=== PATIENT | male | born 1930 | race Caucasian/White ===

== ENCOUNTER → 2016-11-09 | Outpatient (CLI) | payer BC ==
[~2016-11-09] MED LIST: BCTRO EXT; CETI10TA10 PO; FLM4 PO; GFNSR600 PO; IPRASOL4 INH; LISI10TA PO; METO1TAB54 PO; MULT-845 PO; NYSS5 PO; OXGN; PANT40TA PO; PRED10TA PO; PRS5 PO; SYMIN160 INH
--- NOTE | 2016-11-09 14:21 | DIAGNOSTIC IMAGING REPORT ---
CHEST 2 VIEWS ROUTINE CLINICAL HISTORY: COPD with acute exacerbation COMPARISON STUDY: 05/20 16 FINDINGS: The cardiac and mediastinal contours remain stable. There is radiographic evidence of emphysema. There is a persistent area of architectural distortion within the left infrahilar region. There are subtle right upper lung zone airspace opacities, possibly representing a minimal scattered other interstitial opacities are felt to be chronic. There is no significant pleural fluid. There is no failure. Pneumonitis.[ IMPRESSION: 1. Emphysema with chronic interstitial changes 2. Subtle right upper lung zone airspace opacities, possibly inflammatory. Radiographic follow-up is recommended 3. Stable area of distortion in the left infrahilar region. An underlying nodule cannot be excluded Electronically signed by: Eron Bose M.D. 11/09/2016 2:19 PM Dictated Date/Time: 11/09/2016 2:17 PM
== END | disposition home or self-care (01) ==
LOC: C.RADBC 13:39
PROVIDERS: ATTEND Family Medicine
DX: J44.1 Chronic obstructive pulmonary disease with (acute) exacerbation (principal)

== ENCOUNTER → 2016-12-10 | Outpatient (CLI) | payer BC ==
--- NOTE | 2016-12-10 09:18 | DIAGNOSTIC IMAGING REPORT ---
CHEST 2 VIEWS ROUTINE HISTORY: Follow-up PNEUMONIA COMPARISON: Chest 11/09/2016. FINDINGS: There are 2 adjacent peripheral densities within the right upper lobe. The larger peripheral density has improved. The smaller peripheral density remains unchanged. Emphysema. The lungs are hyperexpanded. Stable scarlike densities within the left midlung zone. Small regular density abutting the left heart border persists. No pneumothorax. No pleural effusions. The heart is normal in size. IMPRESSION: 1. There are 2 adjacent peripheral densities within the right upper lobe. One of these has improved. 2. Additional right upper lobe density and irregular density abutting the left heart border persists. These may represent scarring. However, follow-up chest CT is recommended for further evaluation given the lack of interval change. 3. Emphysema. Electronically signed by: Akhil Ansari M.D. 12/10/2016 9:17 AM Dictated Date/Time: 12/10/2016 9:15 AM
== END | disposition home or self-care (01) ==
LOC: C.RADBC 08:57
PROVIDERS: ATTEND Family Medicine
DX: J18.9 Pneumonia, unspecified organism (principal)

== ENCOUNTER → 2016-12-15 | Outpatient (CLI) | payer BC ==
[~2016-12-15] MED LIST changes: +OPTIRAY 320 IV PRN
--- NOTE | 2016-12-15 11:20 | DIAGNOSTIC IMAGING REPORT ---
CT OF THE CHEST WITH IV CONTRAST CLINICAL HISTORY: Chronic respiratory failure. COPD. Abnormal chest x-ray with possible pulmonary mass. COMPARISON STUDY: Chest x-ray dated 12/10/2016 TECHNIQUE: Following the IV administration of 92 mL of Optiray-320, CT of the thorax was performed from the thoracic inlet to the lung bases. Images are reviewed in the axial, sagittal, and coronal planes. IV contrast was administered without complication. CT DOSE: 468.88 mGy.cm FINDINGS: There is bilateral gynecomastia. Thyroid: Imaged portions of the thyroid gland are normal in appearance. Thoracic aorta: The thoracic aorta is normal in course and caliber, noting standard 3-vessel arch anatomy. No aneurysm or dissection is seen. Pulmonary vasculature: The pulmonary trunk is normal in caliber. There are no central filling defects identified to suggest pulmonary embolus. Note that this examination was not protocoled for the evaluation of pulmonary emboli. HEART: The heart is normal in size and configuration, without pericardial effusion. Lungs and pleural spaces: No pleural effusions are visualized. There is severe pulmonary emphysema. There is scattered areas of presumed interstitial scarring. There are lingular atelectatic changes. There is no lobar consolidation. There is a 5 mm right upper lobe pulmonary nodule as visualized in image #[id number]. Mediastinum: Mediastinal lymph nodes are the upper limits of normal in size area of Rosamaria: Clear. Axilla: Clear. Upper abdomen: The liver has a macronodular serosal surface. Underlying cirrhosis is suspected. Skeletal structures: There are no lytic or blastic osseous lesions. IMPRESSION: 1. Emphysema with linear atelectasis and scattered areas of interstitial scarring 2. 5 mm right upper lobe pulmonary nodule 3. No evidence of lobar consolidation 4. No evidence of pathologic adenopathy 5. Suspected hepatic cirrhosis Electronically signed by: Eron Bose M.D. 12/15/2016 11:19 AM Dictated Date/Time: 12/15/2016 11:11 AM
== END | disposition home or self-care (01) ==
LOC: C.CTS 10:47
PROVIDERS: ATTEND Family Medicine
DX: J44.1 Chronic obstructive pulmonary disease with (acute) exacerbation (principal); J96.10 Chronic respiratory failure, unspecified whether with hypoxia or hypercapnia; R91.1 Solitary pulmonary nodule; J98.11 Atelectasis

== ENCOUNTER → 2017-04-20 | Outpatient (CLI) | payer BC ==
[~2017-04-20] MED LIST changes: -OPTIRAY 320 IV PRN
[2017-04-20 13:51] LABS: HEMATOCRIT 40.6 % (42-52); MEAN CORPUSCULAR HEMOGLOBIN 31.2 pg (25-34); MEAN CORPUSCULAR HGB CONC 32.5 g/dl (32-36); MEAN PLATELET VOLUME 12.1 fL (7.4-10.4); PLATELET COUNT 118 K/uL (130-400); RED BLOOD COUNT 4.23 M/uL (4.7-6.1); WHITE BLOOD COUNT 6.91 K/uL (4.8-10.8)
[2017-04-20 14:14] LABS: CALCIUM 9.4 mg/dl (8.5-10.1)
[2017-04-20 14:22] LABS: ALT/SGPT 28 U/L (12-78); AST/SGOT 21 U/L (15-37); BLOOD UREA NITROGEN 17 mg/dl (7-18); BUN/CREATININE RATIO 17.4 (10-20); CARBON DIOXIDE 31 mmol/L (21-32); CHLORIDE 106 mmol/L (98-107); CREATININE 0.98 mg/dl (0.60-1.40); GLUCOSE 111 mg/dl (70-99); POTASSIUM 4.5 mmol/L (3.5-5.1); SODIUM 140 mmol/L (136-145)
[2017-04-20 14:24] LABS: ALB/GLOB RATIO 1.2 (0.9-2); ALKALINE PHOSPHATASE 60 U/L (45-117)
== END | disposition home or self-care (01) ==
LOC: C.LABBC 09:41
PROVIDERS: ATTEND Family Medicine
DX: I10 Essential (primary) hypertension (principal); D64.9 Anemia, unspecified

== ENCOUNTER → 2017-06-15 | Outpatient (CLI) | payer BC ==
--- NOTE | 2017-06-15 11:09 | DIAGNOSTIC IMAGING REPORT ---
(CHEST) THORAX WITHOUT CT DOSE: 516.51 mGycm HISTORY: R91.1 Pulmonary nodule 6 month follow-up [id number] TECHNIQUE: Multiaxial CT images of the chest were performed without contrast. A dose lowering technique was utilized adhering to the principles of ALARA. COMPARISON: Chest CT 12/15/2016. FINDINGS: Stable 4 mm nodule within the right upper lobe on image 98. No pleural effusions. No pneumothorax. Emphysema is again noted. Nodular and linear densities within the right upper lobe posteriorly remains stable. This favors scarring. Mild peripheral measures thickening throughout the lungs which is likely chronic. This is most pronounced within the lingula where there is associated mild traction bronchiectasis and honeycombing. This is consistent with mild fibrotic change. No new focal lung consolidations. No mediastinal or hilar lymphadenopathy. The heart is normal in size. Mild calcified plaque within the normal caliber thoracic aorta. Bilateral gynecomastia. Lobular appearance to the liver consistent with cirrhosis. The visualized spleen and adrenal glands are unremarkable. IMPRESSION: 1. Stable 4 mm nodule within the right upper lobe. Please refer to the chart below for recommended follow-up. 2. Emphysema and mild fibrotic change is again noted. 3. Cirrhotic liver. Please refer to below summary of Fleischner criteria recommendations for follow-up of incidental CT nodules (Christopher Grossman, Guidelines for management of small pulmonary nodules detected on CT scans: A statement from the Fleischner Society, Radiology 237: [phone].) SOLID NODULES Solitary nodule size: <6 mm * Low risk patients: no follow-up needed * high risk patients: optional CT at 12 months Solitary nodule size: 6-8 mm * Low risk patients: follow-up at 6-12 months, then consider further follow-up at 18-24 months * high risk patients: initial follow-up CT at 6-12 months and then at 18-24 months if no change Solitary nodule size: >8 mm * either low or high risk patients - consider follow-up CT at 3 months, and/or CT-PET, and/or biopsy Multiple nodules size: <6 mm * Low risk patients: no routine follow-up * high risk patients: optional CT at 12 months Multiple nodules size: 6-8 mm * Low risk patients: follow-up at 3-6 months, then consider further follow-up at 18-24 months * high risk patients: follow-up at 3-6 months, then at 18-24 months if no change Multiple nodules size: >8 mm * Low risk patients: follow-up at 3-6 months, then consider further follow-up at 18-24 months * high risk patients: follow-up at 3-6 months, then at 18-24 months if no change Note: newly detected indeterminate nodule in persons 35 years of age or older. * Low risk patients: minimal or absent history of smoking and/or other known risk factors * high risk patients: history of smoking or of other known risk factors (e.g. first degree relative with lung cancer, or exposure to asbestos, radon, uranium) * if a nodule up to 8 mm is partly solid or is ground glass further follow-up is required after 24 months to exclude possible slow growing adenocarcinoma (DARYL) SUBSOLID NODULES Solitary pure ground-glass nodule * nodule size <6 mm - no CT follow-up required * nodule size >=6 mm - follow-up CT at 6-12 months, then every 2 years until 5 years Solitary part-solid nodule * nodule size <6 mm - no CT follow-up required * nodule size >=6 mm - follow-up CT at 3-6 months. If unchanged, and solid component remains <6 mm, then annual follow-up for 5 years Multiple subsolid nodules * nodule size <6 mm - follow-up CT at 3-6 months, consider further follow-up at 2 and 4 years if stable * nodule size >=6 mm - follow-up CT at 3-6 months, subsequent management based on the most suspicious nodule(s) Electronically signed by: Akhil Ansari M.D. 06/15/2017 11:07 AM Dictated Date/Time: 06/15/2017 11:02 AM
== END | disposition home or self-care (01) ==
LOC: C.CTS 10:00
PROVIDERS: ATTEND Internal Medicine Geriatric Medicine
DX: R91.1 Solitary pulmonary nodule (principal); J43.9 Emphysema, unspecified; K74.60 Unspecified cirrhosis of liver

== ENCOUNTER 2017-09-14 09:00 | Inpatient (IN) | payer BC, OTHER ==
[~2017-09-14] VITALS: Ht 170.2 cm; Wt 83.5 kg
[2017-09-14] MEDS ORDERED: ALBUT/IPRATROP 3MG/0.5MG NEB 3 ML VIAL INH ONE (09:15)
[2017-09-14 09:17] VITALS: Ht 170.2 cm; Wt 83.5 kg
--- NOTE | 2017-09-14 09:19 | EMERGENCY ROOM VISIT NOTE ---
History Report prepared by Alyssa: Dilcia Barbosa Under the Supervision of: Dr. Chin Mina D.O. First contact with patient: 09:05 Chief Complaint: ILLNESS Stated Complaint: HEAD AND CHEST COLD History of Present Illness The patient is a 86 year old male who presents to the Emergency Room with complaints of headache and difficulty breathing. The patient has a history of COPD and states that last evening he developed significant difficulty breathing as well as cough congestion and right-sided headache. The patient states his symptoms are very severe and worsened with any exertion. The patient has a history of COPD and wears oxygen at 3 liters but he states that this is not helping his breathing. The patient states his symptoms are significantly worsened with any exertion and only minimally improved with rest. The patient denies having any fever. He states his cough is mostly dry. He denies having any lower extremity pain or swelling. The patient has not seen his primary care physician for this discomfort. The patient has been using his bronchodilator therapy without relief. Source of History: patient Onset: last night Position: chest (respiratory) Symptom Intensity: severe Timing: constant Modifying Factors (Worsening): exertion Modifying Factors (Relieving): rest Associated Symptoms: + headache, + cough, No fevers Review of Systems See HPI for pertinent positives & negatives. A total of 10 systems reviewed and were otherwise negative. Past Medical & Surgical Medical Problems: (1) Chest tightness (2) Cirrhosis (3) COPD (chronic obstructive pulmonary disease) (4) Myocardial infarction (5) Peptic ulcer disease Family History Diabetes mellitus Hypertension Social History Smoking Status: Current Every Day Smoker Drug Use: none Marital Status: Housing Status: lives with significant other Occupation Status: retired Current/Historical Medications Scheduled Budesonide/Formoterol Fumarate (Symbicort 160/4.5 Inhaler ), 2 PUFFS INH BID Finasteride (Finasteride), 5 MG PO DAILY Lisinopril (Prinivil), 10 MG PO DAILY Metoclopramide Hcl (Reglan), 5 MG PO Q8 Multiple Vitamins W/ Minerals (Centrum Silver Adult 50+), 1 TABLET PO DAILY Pantoprazole (Protonix), 40 MG PO DAILY Scheduled PRN Ipratropium-Albuterol (Duoneb), 1 TREATMENT INH Q6 PRN for Shortness of Breath Miscellaneous Medications Home O2 Therapy (Oxygen), 3 LITERS NA Allergies Coded Allergies: No Known Allergies (Verified , 09/14/17) Physical Exam Vital Signs Date Time Temp Pulse Resp B/P (MAP) Pulse Ox O2 Delivery O2 Flow Rate FiO2 09/14/17 10:52 90 20 127/76 98 Nasal Cannula 3.0 09/14/17 10:42 96 09/14/17 10:12 80 20 126/74 98 Nebulizer 7.0 09/14/17 09:21 83 22 145/84 98 Mask 3.0 09/14/17 09:17 98 Mask 3.0 09/14/17 09:02 36.5 24 175/89 89 Nasal Cannula 2.0 Physical Exam GENERAL: Patient is awake and alert. He appears very anxious. He is having significant difficulty breathing. EYES: The conjunctivae are clear. The pupils are round and reactive. EARS, NOSE, MOUTH AND THROAT: The nose is without any evidence of any deformity. Mucous membranes are moist tongue is midline. There is clear rhinorrhea noted bilaterally. NECK: The neck is nontender and supple. RESPIRATORY: Diminished breath sounds are noted throughout with expiratory wheezing in both upper lung jules. There significant conversational dyspnea. The patient appears to have significant tachypnea. CARDIOVASCULAR: Regular rate and rhythm noted there no murmurs rubs or gallops normal S1 normal S2 GASTROINTESTINAL: The abdomen is soft. Bowel sounds are present in all quadrants. Abdomen is nontender MUSCULOSKELETAL/EXTREMITIES: There is no evidence of gross deformity full range of motion is noted in the hips and shoulders SKIN: There is no obvious evidence of any rash. Trace pedal edema was noted bilaterally. NEUROLOGIC: Patient is awake alert and oriented x3. Medical Decision & Procedures ER Provider Diagnostic Interpretation: Radiology results as stated below per my review and radiologist interpretation: CT HEAD WITHOUT CONTRAST (CT) CLINICAL HISTORY: Right-sided headache COMPARISON STUDY: No previous studies for comparison. TECHNIQUE: Axial CT of the brain is performed from the vertex to the skull base. IV contrast was not administered for this examination. A dose lowering technique was utilized adhering to the principles of ALARA. CT DOSE: 537.48 mGy.cm FINDINGS: No intra or extra-axial mass lesions are visualized. There is no CT evidence of acute cortical infarction. There is no evidence of midline shift. There is no acute hemorrhage. No calvarial fractures are visualized. There are patchy white matter hypodensities likely on a small vessel basis. 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 There is no evidence of pathologic ventricular dilatation. There is no evidence of acute sinusitis IMPRESSION: No acute intracranial findings Electronically signed by: Eron Bose M.D. 09/14/2017 9:57 AM Dictated Date/Time: 09/14/2017 9:55 AM CHEST ONE VIEW PORTABLE CLINICAL HISTORY: Sepsis COMPARISON STUDY: 12/10/2016 FINDINGS: The chest has an emphysematous configuration. The heart is normal in size. There is no lobar consolidation. There is bibasal interstitial thickening/scarring. Chronic interstitial opacities are again visualized within the left infrahilar region. IMPRESSION: Emphysema, and chronic interstitial opacities. No evidence of acute parenchymal consolidation Electronically signed by: Eron Bose M.D. 09/14/2017 9:43 AM Dictated Date/Time: 09/14/2017 9:41 AM Laboratory Results 09/14/17 09:17 Red Blood Count 3.95, Mean Corpuscular Volume 97.0, Mean Corpuscular Hemoglobin 32.4, Mean Corpuscular Hemoglobin Concent 33.4, Mean Platelet Volume 11.4, Neutrophils (%) (Auto) 78.7, Lymphocytes (%) (Auto) 11.9, Monocytes (%) (Auto) 7.8, Eosinophils (%) (Auto) 1.2, Basophils (%) (Auto) 0.2, Neutrophils # (Auto) 7.60, Lymphocytes # (Auto) 1.15, Monocytes # (Auto) 0.75, Eosinophils # (Auto) 0.12, Basophils # (Auto) 0.02 09/14/17 09:17 Test 09/14/17 00:00 09/14/17 09:15 09/14/17 09:17 09/14/17 09:26 Urine Color YELLOW Urine Appearance CLEAR (CLEAR) Urine pH 7.0 (4.5-7.5) Urine Specific [place] 1.014 (1.000-1.030) Urine Protein NEG (NEG) Urine Glucose (UA) NEG (NEG) Urine Ketones 1+ (NEG) Urine Occult Blood NEG (NEG) Urine Nitrite NEG (NEG) Urine Bilirubin NEG (NEG) Urine Urobilinogen NEG (NEG) Urine Leukocyte Esterase NEG (NEG) Urine WBC (Auto) 0 /hpf (0-5) Urine RBC (Auto) 0-4 /hpf (0-4) Urine Hyaline Casts (Auto) 0 /lpf (0-5) Urine Epithelial Cells (Auto) 0-5 /lpf (0-5) Urine Bacteria (Auto) NEG (NEG) Influenza Type A (RT-PCR) Neg for Influ A (NEG) Influenza Type A Antigen Neg for Influ A (NEG) Influenza Type B Antigen Neg for Influ B (NEG) Influenza Type B (RT-PCR) Neg for Influ B (NEG) White Blood Count 9.66 K/uL (4.8-10.8) Red Blood Count 3.95 M/uL (4.7-6.1) Hemoglobin 12.8 g/dL (14.0-18.0) Hematocrit 38.3 % (42-52) Mean Corpuscular Volume 97.0 fL (80-100) Mean Corpuscular Hemoglobin 32.4 pg (25-34) Mean Corpuscular Hemoglobin Concent 33.4 g/dl (32-36) Platelet Count 97 K/uL (130-400) Mean Platelet Volume 11.4 fL (7.4-10.4) Neutrophils (%) (Auto) 78.7 % Lymphocytes (%) (Auto) 11.9 % Monocytes (%) (Auto) 7.8 % Eosinophils (%) (Auto) 1.2 % Basophils (%) (Auto) 0.2 % Neutrophils # (Auto) 7.60 K/uL (1.4-6.5) Lymphocytes # (Auto) 1.15 K/uL (1.2-3.4) Monocytes # (Auto) 0.75 K/uL (0.11-0.59) Eosinophils # (Auto) 0.12 K/uL (0-0.5) Basophils # (Auto) 0.02 K/uL (0-0.2) RDW Standard Deviation 48.4 fL (36.4-46.3) RDW Coefficient of Variation 13.6 % (11.5-14.5) Immature Granulocyte % (Auto) 0.2 % Immature Granulocyte # (Auto) 0.02 K/uL (0.00-0.02) Erythrocyte Sedimentation Rate 28 mm/hr (0-14) Prothrombin Time 10.4 SECONDS (9.0-12.0) Prothromb Time International Ratio 1.0 (0.9-1.1) Activated Partial Thromboplast Time 27.5 SECONDS (21.0-31.0) Partial Thromboplastin Ratio 1.1 Anion Gap 5.0 mmol/L (3-11) Est Creatinine Clear Calc Drug Dose 65.5 ml/min Estimated GFR () 91.0 Estimated GFR (Non- 78.5 BUN/Creatinine Ratio 16.6 (10-20) Calcium Level 8.9 mg/dl (8.5-10.1) Phosphorus Level 2.0 mg/dl (2.5-4.9) Magnesium Level 2.2 mg/dl (1.8-2.4) Total Bilirubin 0.5 mg/dl (0.2-1) Aspartate Amino Transf (AST/SGOT) 25 U/L (15-37) Alanine Aminotransferase (ALT/SGPT) 27 U/L (12-78) Alkaline Phosphatase 64 U/L (45-117) Total Creatine Kinase 194 U/L (39-308) Creatine Kinase MB 3.4 ng/ml (0.5-3.6) Creatine Kinase MB Ratio 1.8 (0-3.0) C-Reactive Protein 1.41 mg/dl (0-0.29) Pro-B-Type Natriuretic Peptide 104 pg/ml (0-1800) Total Protein 7.6 gm/dl (6.4-8.2) Albumin 4.0 gm/dl (3.4-5.0) Globulin 3.6 gm/dl (2.5-4.0) Albumin/Globulin Ratio 1.1 (0.9-2) Lipase 124 U/L (73-393) Bedside Lactic Acid Venous 1.21 mmol/L (0.90-1.70) Test 09/14/17 09:42 Venous Blood pH 7.40 (7.36-7.41) Venous Blood Partial Pressure CO2 47 mmHg (38.0-50.0) Venous Blood Partial Pressure O2 73 mmHg Venous Blood HCO3 28 mmol/L Venous Blood Oxygen Saturation 94.2 % Venous Blood Base Excess 3.0 mEq/L Laboratory results per my review. Medications Administered Medications (Trade) Dose Ordered Sig/Taylor Route Start Time Stop Time Status Last Admin Dose Admin Albuterol/ Ipratropium (Duoneb) 12 ml ONE ONCE INH 09/14/17 09:15 09/14/17 09:16 DC 09/14/17 09:43 12 ML Sodium Chloride 500 ml @ 999 mls/hr Q31M STAT IV 09/14/17 10:31 09/14/17 11:01 DC 09/14/17 10:51 999 MLS/HR Methylprednisolone Sodium Succinate (Solu-Medrol IV) 125 mg NOW STAT IV 09/14/17 10:31 09/14/17 10:32 DC 09/14/17 10:51 125 MG ECG Indication: chest pain Rate (beats per minute): 90 Rhythm: normal sinus Findings: no acute ischemic change, no ectopy Change: no significant change (05/20/2016) ED Course 0905: The patient was evaluated in room B10. A complete history and physical examination were performed. 0915: DuoNeb 12 ml INH 1031: Solu-Medrol 125 mg IV, NSS 500 ml @ 999 mls/hr IV 1052: I reassessed the patient at this time. He still wheezing but looks better. I discussed the results and treatment plan with the patient. I answered all pertaining questions that he had. He expressed understanding and verbalized agreement. 1058: I spoke with Dr. Templeton. We discussed the patients case. The patient will be evaluated by the [facility] for further management. Medical Decision Prior records/ancillary studies reviewed. Triage Nursing notes reviewed. Additional history obtained from the patient's . The patient's history was concerning for respiratory difficulties. Differential diagnosis: Etiologies such as infections, reactive airway disease, pneumonia, pneumothorax , COPD, CHF, cardiac ischemia, pulmonary embolism, musculoskeletal, gastrointestinal, as well as others were entertained. The patient is an 86-year-old male who presented to emergency department for an evaluation of chest pain as well as difficulty breathing. The patient is a history of COPD and had very significant dyspnea with any exertion. The patient was treated with bronchodilator therapy in the emergency department. He was reevaluated multiple times. I discussed the patient's laboratory radiographic studies with him. Due to the degree of dyspnea he still had I discussed his case with the on-call [facility] hospitalist. They've agreed to evaluate the patient in the emergency department for further management and disposition. Medication Reconcilliation Current Medication List: was personally reviewed by me Blood Pressure Screening Patient's blood pressure: Normal blood pressure Consults Time Called: 1052 Consulting Physician: Dr. Templeton Returned Call: [address] Templeton. We discussed the patients case. The patient will be evaluated by the [facility] for further management. Impression Primary Impression: COPD exacerbation Additional Impressions: Hypoxia Chest pain Scribe Attestation The scribe's documentation has been prepared under my direction and personally reviewed by me in its entirety. I confirm that the note above accurately reflects all work, treatment, procedures, and medical decision making performed by me. Departure Information Dispostion Being Evaluated By Hospitalist Referrals Aisha Garg PA-C (PCP) Patient Instructions My [facility] Problem Qualifiers Additional Impressions: Chest pain Chest pain type: chest pain on breathing Qualified Codes: R07.1 - Chest pain on breathing
--- NOTE | 2017-09-14 09:44 | DIAGNOSTIC IMAGING REPORT ---
CHEST ONE VIEW PORTABLE CLINICAL HISTORY: Sepsis COMPARISON STUDY: 12/10/2016 FINDINGS: The chest has an emphysematous configuration. The heart is normal in size. There is no lobar consolidation. There is bibasal interstitial thickening/scarring. Chronic interstitial opacities are again visualized within the left infrahilar region. IMPRESSION: Emphysema, and chronic interstitial opacities. No evidence of acute parenchymal consolidation Electronically signed by: Eron Bose M.D. 09/14/2017 9:43 AM Dictated Date/Time: 09/14/2017 9:41 AM
[2017-09-14 09:52] LABS: PARTIAL THROMBOPLASTIN RATIO 1.1; PROTHROMBIN TIME (PATIENT) 10.4 SECONDS (9.0-12.0)
[2017-09-14 09:54] LABS: VEN BLD GAS O2 SATURATION 94.2 %
--- NOTE | 2017-09-14 09:58 | DIAGNOSTIC IMAGING REPORT ---
CT HEAD WITHOUT CONTRAST (CT) CLINICAL HISTORY: Right-sided headache COMPARISON STUDY: No previous studies for comparison. TECHNIQUE: Axial CT of the brain is performed from the vertex to the skull base. IV contrast was not administered for this examination. A dose lowering technique was utilized adhering to the principles of ALARA. CT DOSE: 537.48 mGy.cm FINDINGS: No intra or extra-axial mass lesions are visualized. There is no CT evidence of acute cortical infarction. There is no evidence of midline shift. There is no acute hemorrhage. No calvarial fractures are visualized. There are patchy white matter hypodensities likely on a small vessel basis. 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 There is no evidence of pathologic ventricular dilatation. There is no evidence of acute sinusitis IMPRESSION: No acute intracranial findings Electronically signed by: Eron Bose M.D. 09/14/2017 9:57 AM Dictated Date/Time: 09/14/2017 9:55 AM
[2017-09-14 10:05] LABS: ALT/SGPT 27 U/L (12-78); BLOOD UREA NITROGEN 15 mg/dl (7-18); BUN/CREATININE RATIO 16.6 (10-20); C-REACTIVE PROTEIN 1.41 mg/dl (0-0.29); CALCIUM 8.9 mg/dl (8.5-10.1); CARBON DIOXIDE 29 mmol/L (21-32); CHLORIDE 103 mmol/L (98-107); CREATININE 0.89 mg/dl (0.60-1.40); GLUCOSE 101 mg/dl (70-99); MAGNESIUM 2.2 mg/dl (1.8-2.4); SODIUM 137 mmol/L (136-145)
[2017-09-14 10:06] LABS: HEMATOCRIT 38.3 % (42-52); MEAN CORPUSCULAR HEMOGLOBIN 32.4 pg (25-34); MEAN CORPUSCULAR HGB CONC 33.4 g/dl (32-36); MEAN PLATELET VOLUME 11.4 fL (7.4-10.4); PLATELET COUNT 97 K/uL (130-400); RED BLOOD COUNT 3.95 M/uL (4.7-6.1); WHITE BLOOD COUNT 9.66 K/uL (4.8-10.8)
[2017-09-14 10:09] LABS: ALB/GLOB RATIO 1.1 (0.9-2); ALKALINE PHOSPHATASE 64 U/L (45-117); AST/SGOT 25 U/L (15-37); CKMB/CK RATIO 1.8 (0-3.0)
[2017-09-14 10:15] LABS: BASO % 0.2 %; BASO ABS # 0.02 K/uL (0-0.2); COMPLETE YES; EOS % 1.2 %; IG% 0.2 %; LYMPH % 11.9 %; LYMPH ABS # 1.15 K/uL (1.2-3.4); MONO % 7.8 %; NEUT % 78.7 %
[2017-09-14] MEDS ORDERED: OXGN (10:25)
[2017-09-14] MEDS ORDERED: SODIUM CHLORIDE 0.9% 500ML 500 ML IV STA (10:31)
[2017-09-14] MEDS ORDERED: METHYLPREDNISOLONE 125 MG VIAL IV STA (10:31)
[2017-09-14 10:38] LABS: INFLUENZA A PCR Neg for Influ A (NEG); INFLUENZA B PCR Neg for Influ B (NEG)
[2017-09-14] MEDS ORDERED: POTASSIUM PHOS 3 MMOL/1 ML INFUSION IV STA (11:39)
--- NOTE | 2017-09-14 11:41 | History and Physical ---
History & Physical Date & Time of Service: Sep 14, 2017 at 11:29 Chief Complaint: Head And Chest Cold Primary Care Physician: Aisha Garg PA-C History of Present Illness Source: patient 86 y/o M c/o chest tightness. Pt states he has not felt well for the last 3 days. He has had a headache around his R eye, cough with sputum production, and chest tightness. He describes the chest tightness as encompassing his entire chest "like there isn't any more room for air". He has no chest pain. He has been SOB with ambulation, especially since yesterday. Slightly SOB at rest, but not much and he has not had to increase his O2 from his baseline 3L NC use. He feels that the chest tightness is similar to when he was admitted here May 2016 for bronchitis. His sx escalated last night into early this AM with increased cough and sputum production. He noted wheezing as well. He has had no n/v/d and has been able to eat his usual meals with good appetite. Pt has a hx of "4 small heart attacks". He states that with those episodes, he had chest pain that moved into his L UE and it was entirely different from this chest tightness. Pt denies fever, abd pain, LE pain or swelling. Pt received nebs and steroids in the ED. He is feeling somewhat improved, but still with some chest tightness. No SOB at rest. He does not feel at his usual yet though. ED physician states that he overall has improved in skin color and respiratory status. Past Medical/Surgical History Medical Problems: (1) Cirrhosis Status: Chronic (2) COPD (chronic obstructive pulmonary disease) Status: Chronic (3) Myocardial infarction Status: Resolved HTN BPH GERD Gastroparesis Chronic respiratory failure, baseline 3L NC continuous Family History Family history was reviewed; no changes noted. Neg for [place] Social History Smoking Status: Former Smoker (quit x20 years) Alcohol Use: none Drug Use: none Marital Status: Housing status: lives with family, lives with significant other Occupational Status: retired Immunizations History of Influenza Vaccine: Unknown Influenza Vaccine Date: Jul 24, 2010 History of Tetanus Vaccine?: Unknown History of Pneumococcal: Unknown Pneumococcal Date: Nov 24, 2001 History of Hepatitis B Vaccine: Unknown Multi-Drug Resistant Organisms History of MDRO: No Allergies Coded Allergies: No Known Allergies (Verified , 09/14/17) Home Medications Scheduled Budesonide/Formoterol Fumarate (Symbicort 160/4.5 Inhaler ), 2 PUFFS INH BID Finasteride (Finasteride), 5 MG PO DAILY Lisinopril (Prinivil), 10 MG PO DAILY Metoclopramide Hcl (Reglan), 5 MG PO Q8 Multiple Vitamins W/ Minerals (Centrum Silver Adult 50+), 1 TABLET PO DAILY Pantoprazole (Protonix), 40 MG PO DAILY Scheduled PRN Ipratropium-Albuterol (Duoneb), 1 TREATMENT INH Q6 PRN for Shortness of Breath Miscellaneous Medications Home O2 Therapy (Oxygen), 3 LITERS NA Review of Systems Pertinent positives and negatives reviewed in HPI--all others negative Physical Exam Vital Signs Date Time Temp Pulse Resp B/P (MAP) Pulse Ox O2 Delivery O2 Flow Rate FiO2 09/14/17 10:52 90 20 127/76 98 Nasal Cannula 3.0 09/14/17 10:42 96 09/14/17 10:12 80 20 126/74 98 Nebulizer 7.0 09/14/17 09:21 83 22 145/84 98 Mask 3.0 09/14/17 09:17 98 Mask 3.0 09/14/17 09:02 36.5 24 175/89 89 Nasal Cannula 2.0 General Appearance: WD/WN, no apparent distress Head: normocephalic, atraumatic Eyes: normal inspection, EOMI ENT: hearing grossly normal Neck: supple Respiratory/Chest: no respiratory distress, + wheezing (diffuse, expiratory) Cardiovascular: regular rate, rhythm, no edema Abdomen/GI: non tender, soft Extremities/Musculoskelatal: no calf tenderness, no pedal edema Neurologic/Psych: alert, normal mood/affect, oriented x 3 Skin: normal color, warm/dry Diagnostics Laboratory Results Results Past 24 Hours Test 09/14/17 09:15 09/14/17 09:17 09/14/17 09:26 09/14/17 09:42 Range/Units Influenza Type A (RT-PCR) Neg for Influ A NEG Influenza Type A Antigen Neg for Influ A NEG Influenza Type B Antigen Neg for Influ B NEG Influenza Type B (RT-PCR) Neg for Influ B NEG White Blood Count 9.66 4.8-10.8 K/uL Red Blood Count 3.95 4.7-6.1 M/uL Hemoglobin 12.8 14.0-18.0 g/dL Hematocrit 38.3 42-52 % Mean Corpuscular Volume 97.0 80-100 fL Mean Corpuscular Hemoglobin 32.4 25-34 pg Mean Corpuscular Hemoglobin Concent 33.4 32-36 g/dl Platelet Count 97 130-400 K/uL Mean Platelet Volume 11.4 7.4-10.4 fL Neutrophils (%) (Auto) 78.7 % Lymphocytes (%) (Auto) 11.9 % Monocytes (%) (Auto) 7.8 % Eosinophils (%) (Auto) 1.2 % Basophils (%) (Auto) 0.2 % Neutrophils # (Auto) 7.60 1.4-6.5 K/uL Lymphocytes # (Auto) 1.15 1.2-3.4 K/uL Monocytes # (Auto) 0.75 0.11-0.59 K/uL Eosinophils # (Auto) 0.12 0-0.5 K/uL Basophils # (Auto) 0.02 0-0.2 K/uL RDW Standard Deviation 48.4 36.4-46.3 fL RDW Coefficient of Variation 13.6 11.5-14.5 % Immature Granulocyte % (Auto) 0.2 % Immature Granulocyte # (Auto) 0.02 0.00-0.02 K/uL Erythrocyte Sedimentation Rate 28 0-14 mm/hr Prothrombin Time 10.4 9.0-12.0 SECONDS Prothromb Time International Ratio 1.0 0.9-1.1 Activated Partial Thromboplast Time 27.5 21.0-31.0 SECONDS Partial Thromboplastin Ratio 1.1 Sodium Level 137 136-145 mmol/L Potassium Level 4.0 3.5-5.1 mmol/L Chloride Level 103 98-107 mmol/L Carbon Dioxide Level 29 21-32 mmol/L Anion Gap 5.0 3-11 mmol/L Blood Urea Nitrogen 15 7-18 mg/dl Creatinine 0.89 0.60-1.40 mg/dl Est Creatinine Clear Calc Drug Dose 65.5 ml/min Estimated GFR () 91.0 Estimated GFR (Non- 78.5 BUN/Creatinine Ratio 16.6 10-20 Random Glucose 101 70-99 mg/dl Calcium Level 8.9 8.5-10.1 mg/dl Phosphorus Level 2.0 2.5-4.9 mg/dl Magnesium Level 2.2 1.8-2.4 mg/dl Total Bilirubin 0.5 0.2-1 mg/dl Aspartate Amino Transf (AST/SGOT) 25 15-37 U/L Alanine Aminotransferase (ALT/SGPT) 27 12-78 U/L Alkaline Phosphatase 64 45-117 U/L Total Creatine Kinase 194 39-308 U/L Creatine Kinase MB 3.4 0.5-3.6 ng/ml Creatine Kinase MB Ratio 1.8 0-3.0 Troponin I < 0.015 0-0.045 ng/ml C-Reactive Protein 1.41 0-0.29 mg/dl Pro-B-Type Natriuretic Peptide 104 0-1800 pg/ml Total Protein 7.6 6.4-8.2 gm/dl Albumin 4.0 3.4-5.0 gm/dl Globulin 3.6 2.5-4.0 gm/dl Albumin/Globulin Ratio 1.1 0.9-2 Lipase 124 73-393 U/L Bedside Lactic Acid Venous 1.21 0.90-1.70 mmol/L Venous Blood pH 7.40 7.36-7.41 Venous Blood Partial Pressure CO2 47 38.0-50.0 mmHg Venous Blood Partial Pressure O2 73 mmHg Venous Blood HCO3 28 mmol/L Venous Blood Oxygen Saturation 94.2 % Venous Blood Base Excess 3.0 mEq/L Microbiology Results 09/14/17 Blood Culture, Received Pending 09/14/17 Blood Culture, Received Pending Diagnostic Radiology CXR neg for acute CT head neg for acute EKG Incomplete RBBB, not seen prior Impression Assessment and Plan 86 y/o M who was admitted on 09/14 for COPD exacerbation Hypoxia: likely related to COPD exacerbation with acute on chronic respiratory failure: improving s/p nebs and steroids with increased O2 via NC CXR neg for PNA Flu swab neg Monitor on nebs and solu-med 40mg BID Will hold on abx at this time given afebrile with WBC WNL Add mucomyst Blood cx pending Chest tightness: described as similar to prior COPD exacerbation Given CAD/[place] hx, will monitor on tele overnight Trop neg x1, serials pending EKG with incomplete RBBB, not seen prior ECHO pending, no prior ECHO to compare HypoPhos: replace and monitor HTN: elevated BP on arrival in the setting of hypoxia, now WNL continue home meds BPH: continue home meds Gastroparesis: continue home meds Other: Full code SCDs and ambulation for DVT proph AHA diet Level of Care Telemetry Resuscitation Status FULL RESUSCITATION VTE Prophylaxis VTE Risk Assessment Done? Y/N: Yes Risk Level: Low
[2017-09-14 12:46] VITALS: BP 166/80; PULSE 105; TEMP 36.2; O2SAT 95
[2017-09-14] MEDS ORDERED: ACETAMINOPHEN 325 MG TAB PO PRN (12:52)
[2017-09-14] MEDS ORDERED: ONDANSETRON INJ 2 MG/ML 2 ML VIAL IV PRN (12:52)
[2017-09-14] MEDS ORDERED: MAGNESIUM HYDROXIDE SUSP 30 ML UDC PO PRN (12:52)
[2017-09-14] MEDS ORDERED: NITROGLYCERIN 0.4 MG SL PER TAB CHARGE SL PRN (12:52)
[2017-09-14] MEDS ORDERED: POTASSIUM PHOSPHATE INJ 9 MMOL in SODIUM CHLORIDE 0.9% 250ML 250 ML IV ONE (13:15)
[2017-09-14 14:03] VITALS: O2SAT 95
[2017-09-14] MEDS ORDERED: PNEUMOCOCCAL ADMINISTRATION CHARGE ONE (14:45)
[2017-09-14] MEDS ORDERED: PNEUMOCOCCAL POLYSACCHARIDES 25 MCG/0.5 ML VIAL/SYR IM. ONE (14:45)
[2017-09-14 14:53] LABS: URINE APPEARANCE CLEAR (CLEAR); URINE BILIRUBIN NEG (NEG); URINE COLOR YELLOW; URINE EPITHELIAL CELL AUTO 0-5 /lpf (0-5); URINE NITRITE NEG (NEG); URINE SPECIFIC GRAVITY 1.014 (1.000-1.030); UROBILINOGEN NEG (NEG); ZZUR CULT IF INDIC CLEAN CATCH NO
[2017-09-14] MEDS: ALBUT/IPRATROP 3MG/0.5MG NEB 3 ML VIAL INH SCH ×2 (14:55→19:24)
[2017-09-14 14:57] VITALS: PULSE 104; O2SAT 96
[2017-09-14 14:57] LABS: MANUAL MICROSCOPIC REQUIRED? NO; REVIEW REQ? NO
[2017-09-14 15:26] VITALS: BP 149/86; PULSE 103; TEMP 36.3; O2SAT 95
[2017-09-14] MEDS: METOCLOPRAMIDE HCL 5 MG TAB PO SCH ×2 (17:06→21:52)
--- NOTE | 2017-09-14 18:16 | ECHOCARDIOGRAM REPORT ---
*NOTICE TO RECEIVING [employer] This information is strictly Confidential and protected under [place] law. [place] law prohibits you from making any further disclosure of this information unless further disclosure is expressly permitted by the written consent of the person to whom it pertains or is authorized by law. A general authorization for the release of medical or other information is not sufficient for this purpose. Hospital accepts no responsibility if the information is made available to any other person, INCLUDING THE PATIENT. Interpretation Summary * Name: MARLO SANTOS Study Date: 09/14/2017 01:52 PM BP: 166/80 mmHg * Patient Location: [facility]\S\[id number]\S\1 HR: 105 * : 1930 (M/d/yyyy) Gender: Male Height: 67 in * Age: 86 yrs Ethnicity: [place] Weight: 194 lb * Ordering Physician: Aisha Templeton * Referring Physician: Self, Referred * Performed By: Nicole Bella RDCS * * Reason For Study: Chest Pain * BSA: 2.0 [id number] * Normal left ventricular wall motion and systolic function. * Normal right ventricular systolic function. * Normal chamber dimensions. * Trace pulmonic, mitral, and tricuspid regurgitation. * Normal estimated right heart and central venous pressures. * -- Conclusions -- * Aortic valve sclerosis mild, without significant aortic valvular stenosis. Procedure Details * A complete two-dimensional transthoracic echocardiogram was performed (2D, M-mode, Doppler and color flow Doppler). Left Ventricle * The left ventricle is normal in size. * There is normal left ventricular wall thickness. * Ejection Fraction = 65-70%. * Left ventricular systolic function is normal. * The left ventricular wall motion is normal. Right Ventricle * The right ventricle is normal in size and function. * The right ventricular systolic function is normal. Atria * The left atrial size is normal. * Right atrial size is normal. * No ASD detected; PFO is not assessed. Mitral Valve * There is mild mitral annular calcification. * There is no mitral valve stenosis. * There is trace mitral regurgitation. Tricuspid Valve * The tricuspid valve is not well visualized, but is grossly normal. * There is no tricuspid stenosis. * There is trace tricuspid regurgitation. * Right ventricular systolic pressure is normal. Aortic Valve * The aortic valve is trileaflet. * The aortic valve opens well. * Aortic valve sclerosis mild, without significant aortic valvular stenosis. * No aortic regurgitation is present. Pulmonic Valve * The pulmonic valve is not well visualized. * The pulmonary valve is inadequately visualized, but the Doppler data is adequate for interpretation. * Trace pulmonic valvular regurgitation. Great Vessels * Mild aortic root dilatation. Pericardium/Pleural * There is no pericardial effusion. Great Vessels * Normal inferior vena cava diameter and respiratory variation suggests normal central venous pressure. MMode 2D Measurements and Calculations IVSd 1.0 cm IVSs 1.5 cm LVIDd 4.4 cm LVIDs 2.8 cm LVPWd 0.85 cm LVPWs 1.4 cm IVS/LVPW 1.2 FS 36.8 % EDV(Teich) 89.2 ml ESV(Teich) 29.6 ml EF(Teich) 66.8 % EDV(cubed) 87.0 ml ESV(cubed) 22.0 ml EF(cubed) 74.7 % % IVS thick 43.9 % % LVPW thick 64.5 % LV mass(C)d 135.6 grams LV mass(C)dI 67.9 grams/m\S\2 LV mass(C)s 132.8 grams LV mass(C)sI 66.5 grams/m\S\2 SV(Teich) 59.6 ml SI(Teich) 29.9 ml/m\S\2 SV(cubed) 65.0 ml SI(cubed) 32.6 ml/m\S\2 Ao root diam 4.0 cm Ao root area 12.6 cm\S\2 ACS 1.9 cm LA dimension 2.2 cm LA/Ao 0.56 LVAd ap4 27.7 cm\S\2 LVLd ap4 7.7 cm EDV(MOD-sp4) 85.3 ml EDV(sp4-el) 84.3 ml LVAs ap4 16.6 cm\S\2 LVLs ap4 6.4 cm ESV(MOD-sp4) 38.7 ml ESV(sp4-el) 36.7 ml EF(MOD-sp4) 54.6 % EF(sp4-el) 56.4 % LVAd ap2 21.1 cm\S\2 LVLd ap2 7.5 cm EDV(MOD-sp2) 51.9 ml EDV(sp2-el) 50.9 ml LVAs ap2 11.9 cm\S\2 LVLs ap2 6.3 cm ESV(MOD-sp2) 21.6 ml ESV(sp2-el) 19.1 ml EF(MOD-sp2) 58.5 % EF(sp2-el) 62.5 % LVLd %diff -3.93 % EDV(MOD-bp) 67.3 ml LVLs %diff -1.31 % ESV(MOD-bp) 28.4 ml EF(MOD-bp) 57.7 % SV(MOD-sp4) 46.5 ml SI(MOD-sp4) 23.3 ml/m\S\2 SV(MOD-sp2) 30.4 ml SI(MOD-sp2) 15.2 ml/m\S\2 SV(MOD-bp) 38.8 ml SI(MOD-bp) 19.5 ml/m\S\2 SV(sp4-el) 47.5 ml SI(sp4-el) 23.8 ml/m\S\2 SV(sp2-el) 31.8 ml SI(sp2-el) 15.9 ml/m\S\2 Doppler Measurements and Calculations MV E max natty 107.7 cm/sec MV A max natty 33.7 cm/sec MV E/A 3.2 MV dec time 0.21 sec Ao V2 max 137.5 cm/sec Ao max PG 7.6 mmHg Ao max PG (full) 3.2 mmHg LV V1 max PG 4.3 mmHg LV V1 max 104.1 cm/sec PA V2 max 105.7 cm/sec PA max PG 4.5 mmHg PI max natty 136.7 cm/sec PI max PG 7.5 mmHg PI dec slope 275.4 cm/sec\S\2 PI P1/2t 145.4 msec TR max natty 205.6 cm/sec
[2017-09-14 19:18] VITALS: PULSE 100; O2SAT 95
[2017-09-14 19:21] VITALS: BP 137/78; PULSE 100; TEMP 36.8; O2SAT 99
[2017-09-14] MEDS: BUDESONIDE/FORMOTEROL FUMARATE 160/4.5 60 PUFFS/INHALER INH SCH (20:16)
[2017-09-14] MEDS: METHYLPREDNISOLONE IV 40 MG in SYRINGE 0 ML IV SCH (21:50)
[2017-09-15] VITALS (15 sets, daily range): BP systolic 118–152; BP diastolic 71–80; PULSE 54–104; TEMP 36.4–36.8; O2SAT 91–100
[2017-09-15] MEDS: METOCLOPRAMIDE HCL 5 MG TAB PO SCH ×3 (05:58→21:44)
[2017-09-15] MEDS: ALBUT/IPRATROP 3MG/0.5MG NEB 3 ML VIAL INH SCH ×4 (07:38→18:57)
[2017-09-15] MEDS: ACETYLCYSTEINE 20% INHAL SOLN ***DISPENSED BY RESP. INH SCH ×2 (07:38→18:57)
[2017-09-15] MEDS: BUDESONIDE/FORMOTEROL FUMARATE 160/4.5 60 PUFFS/INHALER INH SCH ×2 (08:12→20:37)
[2017-09-15] MEDS: FINASTERIDE 5 MG TAB PO SCH (08:13)
[2017-09-15] MEDS: LISINOPRIL 10 MG TAB PO SCH (08:41)
[2017-09-15] MEDS: PANTOprazole SOD 40 MG TAB PO SCH (08:41)
[2017-09-15] MEDS: CEROVITE ADV FORMULA TAB PO SCH (08:41)
[2017-09-15] MEDS ORDERED: AZITHROMYCIN 250 MG TAB PO ONE (09:15)
[2017-09-15] MEDS: METHYLPREDNISOLONE IV 40 MG in SYRINGE 0 ML IV SCH ×2 (10:13→21:43)
--- NOTE | 2017-09-15 17:57 | Progress Note ---
Subjective Date of Service: Sep 15, 2017. Subjective Pt evaluation today including: conversation w/ patient, physical exam, chart review, lab review, review of studies, review of inpatient medication list feeling better at rest feels about at his baseline, still a lot of BENNETT notes he's coughing up sputum now which is helping him to feel like he's breathing better asks about echo - discussed. chest pressure has resolved Problem List Medical Problems: (1) Chest pain Status: Acute (2) COPD exacerbation Status: Acute (3) COPD exacerbation Status: Acute (4) Hypoxia Status: Acute (5) Hypoxia Status: Acute Review of Systems all other ROS otherwise negative except for as above Objective Vital Signs Date Time Temp Pulse Resp B/P (MAP) Pulse Ox O2 Delivery O2 Flow Rate FiO2 09/15/17 16:13 36.6 75 18 139/71 (93) 100 2.0 09/15/17 15:11 102 16 94 Nasal Cannula 3.0 09/15/17 14:15 96 146/72 (96) 09/15/17 12:00 95 Nasal Cannula 3.0 09/15/17 11:42 36.7 60 20 118/76 (90) 97 Nasal Cannula 4.0 09/15/17 11:22 90 16 93 Nasal Cannula 3.0 09/15/17 08:00 95 Nasal Cannula 3.0 09/15/17 08:00 95 Nasal Cannula 3.0 09/15/17 07:38 84 16 95 Nasal Cannula 3.0 09/15/17 07:32 36.8 88 18 148/78 (101) 95 2.0 09/15/17 04:21 36.5 88 20 143/79 (100) 96 Nasal Cannula 3.0 09/15/17 04:00 Nasal Cannula 3.0 09/15/17 00:14 36.4 96 20 148/80 (102) 96 Nasal Cannula 3.0 09/15/17 00:00 Nasal Cannula 3.0 09/14/17 20:00 Nasal Cannula 3.0 09/14/17 19:21 36.8 100 18 137/78 (97) 99 Nasal Cannula 3.0 09/14/17 19:18 100 18 95 Nasal Cannula 3.0 Physical Exam General Appearance: no apparent distress Eyes: EOMI ENT: hearing grossly normal Neck: trachea midline Respiratory/Chest: no respiratory distress, no accessory muscle use, + decreased breath sounds (no r/r/w goood effort but very quiet) Cardiovascular: regular rate, rhythm (distant) 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/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 tested, alert, normal mood/affect Skin: normal color, warm/dry Laboratory Results Last 24 Hours Test 09/14/17 21:02 Troponin I < 0.015 ng/ml Assessment and Plan COPD exacerbation causing hypoxia and acute on chronic respiratory failure ( normally on 2-3L at home) CXR neg for PNA Flu swab neg zithromax given data that coverage for atypicals signficantly blunts severity of illness even w no pneumonia steroids, nebs, O2, supportive care improving Chest tightness: resolving c/w COPD exacerbation cardiac enzymes negative, echo reassuring HypoPhos: replaced HTN: BP reasonable - continue current meds BPH: continue home meds Gastroparesis: continue home meds Other: Full code SCDs and ambulation for DVT proph AHA diet
[2017-09-16] VITALS: O2SAT 93
[2017-09-16] MEDS: METOCLOPRAMIDE HCL 5 MG TAB PO SCH ×2 (06:05→13:17)
[2017-09-16] MEDS: ALBUT/IPRATROP 3MG/0.5MG NEB 3 ML VIAL INH SCH ×3 (07:22→15:33)
[2017-09-16] MEDS: ACETYLCYSTEINE 20% INHAL SOLN ***DISPENSED BY RESP. INH SCH (07:22)
[2017-09-16 07:26] VITALS: PULSE 82; O2SAT 98
[2017-09-16] MEDS: CEROVITE ADV FORMULA TAB PO SCH (07:35)
[2017-09-16] MEDS: FINASTERIDE 5 MG TAB PO SCH (07:35)
[2017-09-16] MEDS: BUDESONIDE/FORMOTEROL FUMARATE 160/4.5 60 PUFFS/INHALER INH SCH (07:35)
[2017-09-16] MEDS: LISINOPRIL 10 MG TAB PO SCH (07:35)
[2017-09-16] MEDS: PANTOprazole SOD 40 MG TAB PO SCH (07:35)
[2017-09-16 08:00] VITALS: O2SAT 97
[2017-09-16] MEDS ORDERED: AZITHROMYCIN 250 MG TAB PO SCH (09:00)
[2017-09-16] MEDS: METHYLPREDNISOLONE IV 40 MG in SYRINGE 0 ML IV SCH (10:18)
[2017-09-16 11:08] VITALS: PULSE 97; O2SAT 98
[2017-09-16] MEDS ORDERED: PRED10TA PO (15:15)
[2017-09-16] MEDS ORDERED: SPRIN/30 INH (15:15)
[2017-09-16] MEDS ORDERED: AZIT-57 PO (15:15)
--- NOTE | 2017-09-16 15:21 | Discharge Instructions ---
Discharge Instructions Date of Service Sep 16, 2017. Admission Reason for Admission: Copd, Chest Tightness Discharge Discharge Diagnosis / Problem: COPD exacerbation (severe bronchitis) Discharge Goals Goal(s): Diagnostic testing, Therapeutic intervention Activity Recommendations Activity Limitations: resume your previous activity (with oxygen) . Instructions / Follow-Up Instructions / Follow-Up COPD exacerbation -we'll finish out a course of treatment with the following: -antibiotic - while there was not a true pneumonia, when people with COPD get a bronchitis, they tend to get better faster when treated with antibiotics to cover what are called "atypical" bacteria -- zithromax (azithromycin) is one of the best at covering for those bacteria (and also kills very few other bacteria, making the risk of problems/side effects less) - you'll need a dose daily for three more days, starting tomorrow -steroids - we'll run a tapering course of prednisone to settle the inflammation in your lungs -- starting tomorrow take 60mg (6 pills) for two days , then 50mg (5 pills) for two days, then 40mg (4 pills) for two days, then 30mg (3 pills) for two days, then 20mg (2 pills) for two days, then 10mg (1 pill) for two days. as you get to the lower dosing (20mg and lower) if you were to start to feel worse with your breathing, give Dr Delaney's office a call for guidance -inhalers - use the combivent four times a day every, then use it additionally up to four times a day as needed for shortness of breath. Current Hospital Diet Patient's current hospital diet: AHA Diet (Heart Healthy) Discharge Diet Recommended Diet: AHA Diet (Heart Healthy) Pending Studies Studies pending at discharge: no Medical Emergencies . Who to Call and When: Medical Emergencies: If at any time you feel your situation is an emergency, please call 911 immediately. . Non-Emergent Contact Non-Emergency issues call your: Primary Care Provider . . "Provider Documentation" section prepared by Hamilton Lanrdy. . VTE Core Measure Inpt VTE Proph given/why not?: SCD's
[2017-09-16 15:25] VITALS: PULSE 97; O2SAT 97
[2017-09-16 15:32] VITALS: BP 152/80; PULSE 97; TEMP 36.7; O2SAT 98
[2017-09-16] MEDS ORDERED: IPRASOL4 INH (15:36)
--- NOTE | 2017-09-16 16:06 | Discharge Summary ---
Discharge Summary Date of Service Sep 16, 2017. (Susie Delaney CRNP) Discharge Summary Admission Date: Sep 14, 2017 at 11:29 Discharge Date: Sep 16, 2017 Discharge Disposition: Home Principal Diagnosis: COPD exacerbation Problems/Secondary Diagnoses: Cirrhosis, hx ID Immunizations: Have You Had Influenza Vaccine: Unknown Influenza Vaccine Date: Jul 24, 2010 History of Tetanus Vaccine?: Unknown History of Pneumococcal: Unknown Pneumococcal Date: Nov 24, 2001 History of Hepatitis B Vaccine: Unknown Procedures: CXR IMPRESSION: Emphysema, and chronic interstitial opacities. No evidence of acute parenchymal consolidation CT Head IMPRESSION: No acute intracranial findings Echo * Normal left ventricular wall motion and systolic function. * Normal right ventricular systolic function. * Normal chamber dimensions. * Trace pulmonic, mitral, and tricuspid regurgitation. * Normal estimated right heart and central venous pressures. * -- Conclusions -- Aortic valve sclerosis mild, without significant aortic valvular stenosis (Susie Delaney CRNP) Medication Reconciliation New Medications: Prednisone Tab (Prednisone) 10 Mg Tab 10 MG PO UD, #42 TAB 6 po x 2 days then 5 po x 2 days then 4 po x 2 days then 3 po x 2 days then 2 po x 2 days then 1 po x 2 days then stop Azithromycin (Azithromycin) 250 Mg Tab 250 MG PO QAM, #3 TAB Changed Medications: Ipratropium-Albuterol (Duoneb) 3 Ml Nebu 1 TREATMENT INH Q6, #1 INHA (Changed from: Removed Reason) use qid and then additionally q6hr prn sob/wheeze Continued Medications: Budesonide/Formoterol Fumarate (Symbicort 160/4.5 Inhaler ) Aero 2 PUFFS INH BID, INHALER Finasteride (Finasteride) 5 Mg Tab 5 MG PO DAILY, #90 Home O2 Therapy (Oxygen) Gas 3 LITERS NA, BTL Lisinopril (Prinivil) 10 Mg Tab 10 MG PO DAILY, TAB Metoclopramide Hcl (Reglan) 5 Mg Tab 5 MG PO Q8, TAB Multiple Vitamins W/ Minerals (Centrum Silver Adult 50+) 1 Tab Tab 1 TABLET PO DAILY Pantoprazole (Protonix) 40 Mg Tab 40 MG PO DAILY, #30 TAB Discharge Exam ROS Constitutional: no chills, aches, sweats or fever Respiratory: baseline sob, mild cough with yellow sputum, no wheezing Cardiac: no chest pain, palpitations, edema, orthopnea or lightheadedness GI: no abdominal pain, nausea, vomiting, diarrhea or constipation : no dysuria or hesitancy Extremities: no joint pain or weakness Skin: no rash Exam General: no distress Eyes: normal inspection, PERLL Respiratory: chest non tender, clear to auscultation, normal breath sounds, no respiratory distress, no accessory muscle use Cardiac: regular rate and rhythm, no rub or gallop, no murmur, no edema, no jvd GI/: active bowel sounds, no abd pain or tenderness, soft, non distended Extremities: normal range of motion, normal strength, non tender Neuro/Psych: alert and oriented x 3, normal mood and affect Skin: normal color, dry (Susie Delaney CRNP) Hospital Course Mr. Galvan is an 86 y/o M who presented to the ED with complaints of chest tightness. Pt stated he had not felt well for the previous 3 days. He had a headache around his R eye, cough with sputum production, and chest tightness. He described the chest tightness as encompassing his entire chest "like there isn't any more room for air" with wheezing but no chest pain. He was diagnosed with COPD exacerbation. COPD exacerbation causing hypoxia and acute on chronic respiratory failure ( normally on 2-3L at home) CXR was neg for PNA Flu swab was neg Improved with zithromax, steroids, nebs, O2, supportive care. Zithromax and steroid taper for home as well as usual home O2 On day of discharge patient participated in PT/OT without significant difficulty and felt that he was at his baseline activity/respiratory level. Chest tightness: resolved cardiac enzymes negative, echo reassuring HypoPhos: replaced HTN: BP reasonable - continued home antihypertensive meds BPH: continued home meds Gastroparesis: continued home meds Total Time Spent: Greater than 30 minutes This includes examination of the patient, discharge planning, medication reconciliation, and communication with other providers. (Susie Delaney CRNP) i personally examined pt and verified all joaquin points w Harsha CARLSON doing better feeling about at his baseline would like to go home vitals noted nad breathing unlabored no pallor or icterus COPD exacerbation - zithromax, steroid taper, stable for home. discused baseline COPD regimen in regards to ensuring adequate dosing of anticholinergic - discussed QID ipratropium vs spiriva - he notes he can easily increase combivent to QID scheduled and already has at home stable for home (Hamilton Landry D.O.) Discharge Instructions Please refer to the electronic Patient Visit Report (Discharge Instructions) for additional information. (Susie Delaney, ROBYN) Follow-Up Aisha Garg PA-C on TuesdaySeptember 21 at 11:15 am. (Susie Delaney, ROBYN) Additional Copies To Aisha Garg PA-C
== END 2017-09-16 16:22 | disposition home or self-care (01) | DRG 190 ==
LOC: C.EDB 09:02 → C.MED 11:29 → ENRESERV 11:54
PROVIDERS: ADMIT Family Medicine; ATTEND Family Medicine
DX: J44.1 Chronic obstructive pulmonary disease with (acute) exacerbation (principal); J96.21 Acute and chronic respiratory failure with hypoxia; E83.39 Other disorders of phosphorus metabolism; R51 Headache; I25.2 Old myocardial infarction; I10 Essential (primary) hypertension; K31.84 Gastroparesis; K21.9 Gastro-esophageal reflux disease without esophagitis; N40.0 Benign prostatic hyperplasia without lower urinary tract symptoms; Z79.899 Other long term (current) drug therapy; Z87.891 Personal history of nicotine dependence; Z99.81 Dependence on supplemental oxygen

== ENCOUNTER → 2017-12-06 | Outpatient (CLI) | payer BC ==
[~2017-12-06] MED LIST changes: +AZIT-57 PO; -BCTRO EXT; -CETI10TA10 PO; -FLM4 PO; -GFNSR600 PO; -NYSS5 PO
[2017-12-06 13:51] LABS: BASO % 0.2 %; BASO ABS # 0.02 K/uL (0-0.2); EOS % 2.1 %; EOS ABS # 0.17 K/uL (0-0.5); HEMATOCRIT 38.5 % (42-52); HEMOGLOBIN 12.6 g/dL (14.0-18.0); IG# 0.01 K/uL (0.00-0.02); LYMPH % 24.8 %; LYMPH ABS # 1.99 K/uL (1.2-3.4); MEAN CORPUSCULAR HEMOGLOBIN 32.4 pg (25-34); MEAN CORPUSCULAR HGB CONC 32.7 g/dl (32-36); MEAN PLATELET VOLUME 11.5 fL (7.4-10.4); MONO % 8.7 %; NEUT % 64.1 %; NEUT ABS # 5.12 K/uL (1.4-6.5); PLATELET COUNT 136 K/uL (130-400); RED CELL DISTRIBUTION WIDTH CV 14.4 % (11.5-14.5); RED CELL DISTRIBUTION WIDTH SD 52.5 fL (36.4-46.3); WHITE BLOOD COUNT 8.01 K/uL (4.8-10.8)
[2017-12-06 14:07] LABS: ALBUMIN 3.8 gm/dl (3.4-5.0); ALT/SGPT 23 U/L (12-78); BLOOD UREA NITROGEN 16 mg/dl (7-18); CARBON DIOXIDE 29 mmol/L (21-32); CHOLESTEROL 177 mg/dl (0-200); CREATININE 0.87 mg/dl (0.60-1.40); GLUCOSE 95 mg/dl (70-99); POTASSIUM 4.2 mmol/L (3.5-5.1); SODIUM 137 mmol/L (136-145)
[2017-12-06 14:13] LABS: ALKALINE PHOSPHATASE 55 U/L (45-117); AST/SGOT 19 U/L (15-37); LDL CHOLESTEROL CALCULATED 107 mg/dl; TOTAL PROTEIN 7.5 gm/dl (6.4-8.2)
== END | disposition home or self-care (01) ==
LOC: C.LABBC 10:25
PROVIDERS: ATTEND Nurse Practitioner Adult Health
DX: E78.5 Hyperlipidemia, unspecified (principal); D64.9 Anemia, unspecified; I10 Essential (primary) hypertension

== ENCOUNTER → 2018-02-08 | Outpatient (CLI) | payer BC | END | disposition home or self-care (01) | LOC: C.LABSPEC 16:57 | PROVIDERS: ATTEND Urology | DX: N40.1 Benign prostatic hyperplasia with lower urinary tract symptoms (principal) ==

== ENCOUNTER → 2018-05-23 | Outpatient (CLI) | payer BC ==
[~2018-05-23] MED LIST changes: +IPRA-64 INH; -IPRASOL4 INH; -PRED10TA PO
[2018-05-23 16:52] LABS: BASO % 0.1 %; BASO ABS # 0.01 K/uL (0-0.2); HEMATOCRIT 39.7 % (42-52); IG# 0.02 K/uL (0.00-0.02); LYMPH % 10.9 %; LYMPH ABS # 1.12 K/uL (1.2-3.4); MEAN CORPUSCULAR HEMOGLOBIN 32.4 pg (25-34); MEAN CORPUSCULAR HGB CONC 32.7 g/dl (32-36); MEAN PLATELET VOLUME 11.8 fL (7.4-10.4); MONO % 5.8 %; NEUT ABS # 8.47 K/uL (1.4-6.5); PLATELET COUNT 152 K/uL (130-400); RED CELL DISTRIBUTION WIDTH CV 14.2 % (11.5-14.5); RED CELL DISTRIBUTION WIDTH SD 50.6 fL (36.4-46.3); WHITE BLOOD COUNT 10.32 K/uL (4.8-10.8)
[2018-05-24 07:09] LABS: HEMOGLOBIN A1C 5.2 % (4.5-5.6)
== END | disposition home or self-care (01) ==
LOC: C.LABBC 12:13
PROVIDERS: ATTEND Nurse Practitioner Adult Health
DX: D64.9 Anemia, unspecified (principal); R73.01 Impaired fasting glucose

== ENCOUNTER → 2018-05-29 | Outpatient (CLI) | payer BC ==
--- NOTE | 2018-05-29 08:44 | DIAGNOSTIC IMAGING REPORT ---
TWO VIEW CHEST CLINICAL HISTORY: Cough. FINDINGS: PA and lateral chest radiographs are compared to study dated 09/14/2017 and correlated with chest CT dated 06/15/2017. The cardiomediastinal silhouette is unremarkable noting atherosclerotic calcification of the thoracic aorta. Enlargement of the central pulmonary arteries suggests pulmonary artery hypertension. Advanced emphysema and chronic interstitial thickening are similar to previous. Diffuse subpleural reticulation is noted. Foci of scarring are present in both lungs. No airspace consolidation or pleural effusion is identified. There is no pneumothorax. The skeletal structures are osteopenic. The bony thorax appears intact. IMPRESSION: Advanced emphysema with no acute cardiopulmonary abnormality. Electronically signed by: Valdo Borja M.D. 05/29/2018 8:42 AM Dictated Date/Time: 05/29/2018 8:41 AM
== END | disposition home or self-care (01) ==
LOC: C.RADBC 08:03
PROVIDERS: ATTEND Nurse Practitioner Adult Health
DX: D72.9 Disorder of white blood cells, unspecified (principal); R05 Cough; J43.9 Emphysema, unspecified

== ENCOUNTER 2020-10-20 16:56 | Inpatient (IN) ==
[2020-10-20] MEDS ORDERED: ASPIRIN 81 MG CHEW PO STA (17:18)
--- NOTE | 2020-10-20 17:44 | Emergency Department Note ---
Impression & Plan COPD (chronic obstructive pulmonary disease) with emphysema, Chest pain, Breathlessness ED Provider Note Provider: Juice Glasgow MD DATE OF SERVICE:10/20/2020 CHIEF COMPLAINT: Shortness of breath, chest and upper abdominal pain HISTORY OF PRESENT ILLNESS: Patient is a 89-year-old gentleman history of COPD on chronic 3 L of oxygen, thrombocytopenia, GERD, distant CAD presenting today complaining of worsening breathing over the last several weeks not improved by his home nebulizer. EMS states he was 88% on 3 L and they increased his oxygen gave him steroids and albuterol/ipratropium in route. Patient states she is very tachypneic when he went to the bathroom today and thus called EMS was having some lower chest and upper abdominal discomfort. States discomforts been there for several days but worsened to a 6 out of 10 pain earlier. Denies radiation to the extremities or neck. Patient states he been taking Mylanta for this with minimal effect and thought it was gas related but has had some diarrhea with this. Denies other abdominal pain or nausea. No recent sick contacts reported. Denies significant leg swelling. States distantly had what his doctor told him were several small cardiac events in the 80s. REVIEW OF SYSTEMS: A total of 10 review of systems was obtained and negative except as stated above in the HPI. PAST MEDICAL HISTORY: As noted above MEDICATIONS: Reviewed home medications, on chronic home oxygen, denies use of anticoagulants/aspirin. SOCIAL HISTORY: Lives at home with , distant former smoker PHYSICAL EXAM: GENERAL: alert and oriented on stretcher with facemask in place quite tachypneic Head: normocephalic and atraumatic EYES: No injection, discharge or icterus. NECK: Trachea midline. ENT: Mucous membranes pink and moist. LUNGS: Airway patent tachypneic with increased work of breathing. A few scattered expiratory wheezes and diminished throughout and particularly the bases were appreciated. HEART: Regular rate and rhythm. No chest wall tenderness ABDOMEN: Soft and non-tender, without guarding or rebound. SKIN: Acyanotic, warm, dry, without rashes EXTREMITIES: Without swelling, tenderness or deformity NEUROLOGICAL: No focal deficits. No aphasia. No facial droop or slurred speech. EK bpm sinus tachycardia without PVC. Incomplete right bundle branch block is noted with scattered anterior T wave inversions. Left axis noted. Some artifact due to respiratory variation noted. No clear ST segment elevation noted. Compared to previous from February 102018 similar to previous. CONTINUOUS CARDIAC MONITORING: was ordered and showed a heart rate of 100s-120's bpm in sinus tachycardia Patient's laboratory studies and imaging reviewed. Differential includes Cardiac ischemia, aortic dissection, pulmonary embolism, pneumothorax, pneumonia, pericarditis, myocarditis, esophageal rupture, GERD, cholecystitis, pancreatitis, musculoskeletal, as well as other pathologies. IMPRESSION/MEDICAL DECISION MAKING: Patient is complaining worsening shortness of breath with some lower chest discomfort. Concern given his history for possible COPD exacerbation, Covid, pneumonia, ACS predominantly. Lower suspicion for acute intra-abdominal process at this point. Patient given some steroids and nebulizer prior to arrival. Given additional aspirin here. Chest discomfort is some concern for possible cardiac etiology. No clear STEMI. Mild lactate elevation of D-dimer is elevated here. We will proceed with CT scan of the chest. Do note that creatinine somewhat elevated but want to exclude PE given the significance of his shortness of breath which did improve here with some time. Given magnesium additional DuoNeb here as well as some IV fluid. Covid test likely negative. No evidence of acute hepatitis or pancreatitis based on laboratory studies. Troponin is likely not elevated initially. Lower suspicion is a bacterial and lactate elevation likely from the albuterol and his respiratory effort. Postulated the symptoms are predominantly secondary to underlying COPD and emphysematous lung pathology. Discussed the patient has agreed with the plan for further care here at the hospital. Hospitalist contacted. DIAGNOSIS: COPD exacerbation, chest pain, shortness of breath DISPOSITION: Hospitalist will evaluate Patient was agreeable with this plan. Past Med/Surg History Medical History Alcoholic cirrhosis Anemia Benign localized prostatic 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) Chronic obstructive pulmonary disease Chronic respiratory failure Dependence on supplemental oxygen Dyslipidemia Gastroparesis GERD without esophagitis Hypertension Impaired fasting glucose Incomplete bladder emptying Myocardial infarction Peptic ulcer disease Pneumonia Pulmonary nodule Thrombocytopenia Surgical History Hx of appendectomy Hx of cataract surgery Hx of total knee arthroplasty Family History Father Diabetes Mother Diabetes High blood sugar Thyroid disease Stroke Sister Diabetes Brother Diabetes Cancer Stroke Colorectal cancer Other BPH loc w/o ur obs/LUTS Denies family history of Ovarian cancer Prostate cancer Crohn's disease Myocardial infarction Breast cancer Inflammatory bowel disease Social History Smoking Status: Former smoker Tobacco Type: Cigarettes, Pipe and Cigars Age Started Using Tobacco: 22; Age Quit Using Tobacco: 74; Cigarettes Per Day: 3 packs daily; Second Hand Exposure: No; Hx Alcohol Use: No (None currently, but history of heavy drinking) Hx Substance Use: No Preferred Language: Bengali Communication Ability: Effective Visual Impairment: Limited Hearing Ability: Normal Beliefs That Will Affect Care: None marital status: Current Living Situation: Spouse current occupational status: retired How many Children do You have: 0 Feels Safe at Home: Yes Childhood Exposure to Second-Hand Smoke: No caffeine: Yes (tea and coffee occassionally ) Dental Care, Regularly: No Physical Activity Frequency: Does not Exercise Seatbelt Use: always Sunscreen Use: No Assistive Devices: Oxygen - Continuous Allergies Allergies Allergy/AdvReac Type Severity Reaction Status Date / Time No Known Allergies Allergy Verified 10/20/20 20:08 Home Meds Home Medications Medication Instructions Recorded Confirmed cfrhilff-xmg-sjhzy acid 300 1 tab PO DAILY 05/21/19 10/20/20 mcg-lycopene 600 mcg-lutein 300 mcg tablet acetaminophen [Tylenol Arthritis] 1,300 mg PO Q12H PRN 10/20/20 10/20/20 Previous Rx's Medication Instructions Recorded lactobacillus combination no.4 3,000 cell PO DAILY #7 cap 02/14/19 [Probiotic] lisinopril 10 mg tablet 5 mg PO DAILY #45 tab 05/21/19 metoclopramide HCl 10 mg tablet 10 mg PO BID #60 tab 04/08/20 pantoprazole 40 mg tablet,delayed 40 mg PO BID #60 tab 04/08/20 release dutasteride 0.5 mg capsule 0.5 mg PO DAILY #90 cap 05/09/20 budesonide-formoterol HFA 160 2 puff INHALATION BID #3 inhaler 07/14/20 mcg-4.5 mcg/actuation aerosol inhaler ipratropium 0.5 mg-albuterol 3 mg 3 ml INHALATION Q6H PRN #360 ml 07/14/20 (2.5 mg base)/3 mL nebulization soln prednisone 10 mg tablet 10 mg PO .COMPLEX #40 tab 07/14/20 Results & Data (ED) Vital Signs Vital Signs - 24 hr 10/20/20 16:26 10/20/20 17:33 10/20/20 18:00 Pulse Rate 135 H 110 H Pulse Rate [Right Finger] Respiratory Rate 40 H 21 Respiratory Effort / Characteristics Short of Breath Respiratory Depth Shallow Respiratory Pattern Rapid/Shallow Tachypnea Blood Pressure 138/71 143/79 H Blood Pressure [Right Arm] Blood Pressure Mean 93 100 Blood Pressure Mean [Right Arm] Pulse Oximetry 94 88 L 96 Oxygen Delivery Method Nasal Cannula Nasal Cannula Nasal Cannula Oxygen Flow Rate 6 3 4 Sepsis Recent Fever Within 48 Hours No Sepsis New/Unexplained Change in Mental Status No Sepsis Action Taken by Nursing Previously Notified Oxygen Flow Rate - Titration 6 Pulse Oximetry Post Tiitration 96 10/20/20 18:01 10/20/20 19:11 10/20/20 19:19 Pulse Rate 109 H Pulse Rate [Right Finger] 113 H 109 H Respiratory Rate 26 H 26 H 24 Respiratory Effort / Characteristics Spontaneous Labored Short of Breath Splinting (from pain) Respiratory Depth Respiratory Pattern Blood Pressure Blood Pressure [Right Arm] 163/95 H Blood Pressure Mean Blood Pressure Mean [Right Arm] 117 Pulse Oximetry 96 97 96 Oxygen Delivery Method Nasal Cannula Oxymask Oxymask Oxygen Flow Rate 4 5 4 Sepsis Recent Fever Within 48 Hours Sepsis New/Unexplained Change in Mental Status Sepsis Action Taken by Nursing Oxygen Flow Rate - Titration Pulse Oximetry Post Tiitration 10/20/20 20:15 Pulse Rate Pulse Rate [Right Finger] 100 H Respiratory Rate 20 Respiratory Effort / Characteristics Respiratory Depth Respiratory Pattern Blood Pressure Blood Pressure [Right Arm] 164/90 H Blood Pressure Mean Blood Pressure Mean [Right Arm] 114 Pulse Oximetry 97 Oxygen Delivery Method Oxymask Oxygen Flow Rate 4 Sepsis Recent Fever Within 48 Hours Sepsis New/Unexplained Change in Mental Status Sepsis Action Taken by Nursing Oxygen Flow Rate - Titration Pulse Oximetry Post Tiitration Laboratory Data Result diagrams: 10/20/20 17:56 10/20/20 17:56 Lab Results 10/20/20 10/20/20 10/20/20 Range/Units 17:56 17:56 17:56 WBC 9.27 (4.8-10.8) K/uL RBC 4.05 L (4.7-6.1) M/uL Hgb 12.9 L (14.0-18.0) g/dL Hct 39.9 L (42-52) % MCV 98.5 (80-100) fL MCH 31.9 (25-34) pg MCHC 32.3 (32-36) g/dL RDW Std Deviation 50.1 H (36.4-46.3) fL RDW Coeff of Emily 14.0 (11.5-14.5) % Plt Count 108 L (130-400) K/uL MPV 11.3 H (7.4-10.4) fL Immature Gran % (Auto) 0.2 % Neut % (Auto) 84.3 % Lymph % (Auto) 10.8 % [place] % (Auto) 4.5 % Eos % (Auto) 0.2 % Baso % (Auto) 0.0 % Neut # (Auto) 7.81 H (1.4-6.5) K/uL Lymph # (Auto) 1.00 L (1.2-3.4) K/uL [place] # (Auto) 0.42 (0.11-0.59) K/uL Eos # (Auto) 0.02 (0-0.5) K/uL Baso # (Auto) 0.00 (0-0.2) K/uL Immature Gran # (Auto) 0.02 (0.00-0.02) K/uL PT 10.9 (9.0-12.0) Seconds INR 1.0 (0.9-1.1) APTT 25.9 (21.0-31.0) Seconds PTT Ratio 0.9 D-Dimer 1990 H* (0-500) ug/L FEU Sodium 141 (136-145) mmol/L Potassium 4.3 (3.5-5.1) mmol/L Chloride 105 (98-107) mmol/L Carbon Dioxide 32 (21-32) mmol/L Anion Gap 4.0 (3-11) BUN 25 H (7-18) mg/dl Creatinine 1.75 H (0.6-1.4) mg/dl Est Cr Clr Drug Dosing 28.0 ml/min Est GFR ( Amer) 39.4 Est GFR (Non-Af Amer) 34.0 BUN/Creatinine Ratio 14.5 (10-20) Glucose 151 H (70-99) mg/dl Lactate (0.4-2.0) mmol/L Calcium 9.0 (8.5-10.1) mg/dl Total Bilirubin 0.4 (0.2-1) mg/dl AST 25 (15-37) U/L ALT 37 (12-78) U/L Alkaline Phosphatase 81 (45-117) U/L Troponin I < 0.015 (0-0.045) ng/ml Total Protein 7.7 (6.4-8.2) gm/dl Albumin 3.6 (3.4-5.0) gm/dl Globulin 4.1 H (2.5-4.0) gm/dl Albumin/Globulin Ratio 0.9 (0.9-2) Lipase 147 (73-393) U/L COVID-19 Eval Order SARS-CoV-2, RNA, NAAT (NEGATIVE) 10/20/20 10/20/20 10/20/20 Range/Units 17:56 17:56 17:56 WBC (4.8-10.8) K/uL RBC (4.7-6.1) M/uL Hgb (14.0-18.0) g/dL Hct (42-52) % MCV (80-100) fL MCH (25-34) pg MCHC (32-36) g/dL RDW Std Deviation (36.4-46.3) fL RDW Coeff of Emily (11.5-14.5) % Plt Count (130-400) K/uL MPV (7.4-10.4) fL Immature Gran % (Auto) % Neut % (Auto) % Lymph % (Auto) % [place] % (Auto) % Eos % (Auto) % Baso % (Auto) % Neut # (Auto) (1.4-6.5) K/uL Lymph # (Auto) (1.2-3.4) K/uL [place] # (Auto) (0.11-0.59) K/uL Eos # (Auto) (0-0.5) K/uL Baso # (Auto) (0-0.2) K/uL Immature Gran # (Auto) (0.00-0.02) K/uL PT (9.0-12.0) Seconds INR (0.9-1.1) APTT (21.0-31.0) Seconds PTT Ratio D-Dimer (0-500) ug/L FEU Sodium (136-145) mmol/L Potassium (3.5-5.1) mmol/L Chloride (98-107) mmol/L Carbon Dioxide (21-32) mmol/L Anion Gap (3-11) BUN (7-18) mg/dl Creatinine (0.6-1.4) mg/dl Est Cr Clr Drug Dosing ml/min Est GFR ( Amer) Est GFR (Non-Af Amer) BUN/Creatinine Ratio (10-20) Glucose (70-99) mg/dl Lactate 2.4 H* (0.4-2.0) mmol/L Calcium (8.5-10.1) mg/dl Total Bilirubin (0.2-1) mg/dl AST (15-37) U/L ALT (12-78) U/L Alkaline Phosphatase (45-117) U/L Troponin I (0-0.045) ng/ml Total Protein (6.4-8.2) gm/dl Albumin (3.4-5.0) gm/dl Globulin (2.5-4.0) gm/dl Albumin/Globulin Ratio (0.9-2) Lipase (73-393) U/L COVID-19 Eval [facility] SARS-CoV-2, RNA, NAAT NEGATIVE (NEGATIVE) 10/20/20 Range/Units 20:14 WBC (4.8-10.8) K/uL RBC (4.7-6.1) M/uL Hgb (14.0-18.0) g/dL Hct (42-52) % MCV (80-100) fL MCH (25-34) pg MCHC (32-36) g/dL RDW Std Deviation (36.4-46.3) fL RDW Coeff of Emily (11.5-14.5) % Plt Count (130-400) K/uL MPV (7.4-10.4) fL Immature Gran % (Auto) % Neut % (Auto) % Lymph % (Auto) % [place] % (Auto) % Eos % (Auto) % Baso % (Auto) % Neut # (Auto) (1.4-6.5) K/uL Lymph # (Auto) (1.2-3.4) K/uL [place] # (Auto) (0.11-0.59) K/uL Eos # (Auto) (0-0.5) K/uL Baso # (Auto) (0-0.2) K/uL Immature Gran # (Auto) (0.00-0.02) K/uL PT (9.0-12.0) Seconds INR (0.9-1.1) APTT (21.0-31.0) Seconds PTT Ratio D-Dimer (0-500) ug/L FEU Sodium (136-145) mmol/L Potassium (3.5-5.1) mmol/L Chloride (98-107) mmol/L Carbon Dioxide (21-32) mmol/L Anion Gap (3-11) BUN (7-18) mg/dl Creatinine (0.6-1.4) mg/dl Est Cr Clr Drug Dosing ml/min Est GFR ( Amer) Est GFR (Non-Af Amer) BUN/Creatinine Ratio (10-20) Glucose (70-99) mg/dl Lactate 2.6 H* (0.4-2.0) mmol/L Calcium (8.5-10.1) mg/dl Total Bilirubin (0.2-1) mg/dl AST (15-37) U/L ALT (12-78) U/L Alkaline Phosphatase (45-117) U/L Troponin I (0-0.045) ng/ml Total Protein (6.4-8.2) gm/dl Albumin (3.4-5.0) gm/dl Globulin (2.5-4.0) gm/dl Albumin/Globulin Ratio (0.9-2) Lipase (73-393) U/L COVID-19 Eval Order SARS-CoV-2, RNA, NAAT (NEGATIVE) Administered Medications Discontinued Medications Albuterol (Albut/Ipratrop 3mg/0.5mg Neb 3 Ml Vial) 3 ml NEB NOW STA Stop: 10/20/20 18:43 Last Admin: 10/20/20 19:11 Dose: 3 ml Documented by: [id number] Aspirin (Aspirin 81 Mg Chew) 324 mg PO NOW STA Stop: 10/20/20 17:19 Last Admin: 10/20/20 17:44 Dose: 324 mg Documented by: [id number] Sodium Chloride (Nss) 500 mls @ 999 mls/hr IV .Q31M ONE Stop: 10/20/20 19:12 Last Infusion: 10/20/20 20:26 Dose: 0 mls/hr Documented by: [id number] Admin: 10/20/20 19:18 Dose: 999 mls/hr Documented by: [id number] Magnesium Sulfate/Dextrose (Magnesium Sulfate / D5w) 1 gm in 100 mls @ 400 mls/hr IV Q15M CHARLA Stop: 10/20/20 18:59 Last Infusion: 10/20/20 20:25 Dose: 0 mls/hr Documented by: [id number] Admin: 10/20/20 19:18 Dose: 400 mls/hr Documented by: [id number] Ioversol (Optiray 320 125ml) 118 ml IV ONCE ONE Stop: 10/20/20 19:05 Last Admin: 10/20/20 19:05 Dose: 118 ml Documented by: [id number] Discharge Plan Visit Data Chief Complaint: Chest Pain Stated Complaint: CHEST PAIN ED Provider: Juice Glasgow Discharge Problem: COPD (chronic obstructive pulmonary disease) with emphysema, Chest pain, Breathlessness Patient Disposition: Admitted As Inpatient Condition: Fair Forms Stand Alone Forms: [facility] [place] [employer] Prescriptions Prescriptions: No Action lisinopril 10 mg tablet 5 mg PO DAILY Qty: 45 RF: 0 pantoprazole 40 mg tablet,delayed release (DR/EC) 40 mg PO BID Qty: 60 RF: 5 metoclopramide HCl 10 mg tablet 10 mg PO BID Qty: 60 RF: 5 dutasteride 0.5 mg capsule 0.5 mg PO DAILY Qty: 90 RF: 3 Symbicort 160-4.5 mcg/actuation HFA aerosol inhaler 2 puff inhalation BID Qty: 3 RF: 3 prednisone 10 mg tablet 10 mg PO .COMPLEX Qty: 40 RF: 2 ipratropium-albuterol 0.5 mg-3 mg(2.5 mg base)/3 mL solution for nebulization 3 ml INHALATION Q6H PRN (Reason: shortness of breath or wheezing) Qty: 360 RF: 11 acetaminophen [Tylenol Arthritis] 650 mg Tablet Extended Release 1,300 mg PO Q12H PRN (Reason: Pain) RF: 0 Probiotic 3 billion cell capsule 3,000 cell PO DAILY Qty: 7 RF: 0 Centrum Silver Ultra Men's 300-600-300 mcg tablet 1 tab PO DAILY RF: 0 Referrals Referrals: Kavon Silverio DO [Primary Care Provider] -
[2020-10-20 18:05] LABS: Eosinophils # (auto) 0.02 K/uL (0-0.5); Eosinophils % (auto) 0.2 %; Hematocrit (blood only) 39.9 % (42-52); Hemoglobin 12.9 g/dL (14.0-18.0); Immature Granulocytes # (auto) 0.02 K/uL (0.00-0.02); Immature Granulocytes % (auto) 0.2 %; Lymphocytes % (auto) 10.8 %; Mean Corpuscular Hemoglobin 31.9 pg (25-34); Mean Corpuscular Hgb Conc 32.3 g/dL (32-36); Mean Corpuscular Volume 98.5 fL (80-100); Mean Platelet Volume 11.3 fL (7.4-10.4); Monocytes # (auto) 0.42 K/uL (0.11-0.59); Monocytes % (auto) 4.5 %; Neutrophils # (auto) 7.81 K/uL (1.4-6.5); Neutrophils % (auto) 84.3 %; Platelet Count 108 K/uL (130-400); RDW Standard Deviation 50.1 fL (36.4-46.3); Red Blood Count 4.05 M/uL (4.7-6.1); White Blood Count 9.27 K/uL (4.8-10.8)
[2020-10-20 18:20] LABS: Partial Thromboplastin Ratio 0.9; Partial Thromboplastin Time 25.9 Seconds (21.0-31.0); Prothrombin Time 10.9 Seconds (9.0-12.0)
[2020-10-20 18:22] LABS: Alanine Aminotransferase 37 U/L (12-78); Albumin Level 3.6 gm/dl (3.4-5.0); Aspartate Aminotransferase 25 U/L (15-37); BUN Creatinine Ratio 14.5 (10-20); Blood Urea Nitrogen 25 mg/dl (7-18); Carbon Dioxide 32 mmol/L (21-32); Chloride 105 mmol/L (98-107); Est GFR (African American) 39.4; Glucose 151 mg/dl (70-99); Lipase 147 U/L (73-393); Potassium 4.3 mmol/L (3.5-5.1); Sodium 141 mmol/L (136-145)
[2020-10-20 18:27] LABS: Albumin Globulin Ratio 0.9 (0.9-2); Alkaline Phosphatase 81 U/L (45-117); Bilirubin,Total 0.4 mg/dl (0.2-1); Globulin 4.1 gm/dl (2.5-4.0); Total Protein 7.7 gm/dl (6.4-8.2); Troponin I < 0.015 ng/ml (0-0.045)
[2020-10-20 18:31] LABS: D Dimer 1990 ug/L FEU (0-500)
--- NOTE | 2020-10-20 18:41 | XRay Report ---
XR chest 1V portable CLINICAL HISTORY: Atypical chest pain. COMPARISON STUDY: Chest CT September 02, 2020. FINDINGS: Lung volumes are increased. There is no pneumothorax or pleural effusion. No lobar consolid ation is present. There is severe emphysema. Mild interstitial thickening is noted, most evident with in the left lower lung. Cardiomediastinal silhouette is stable. There is no evidence for pulmonary ed daniel. IMPRESSION: 1. Severe emphysema. 2. Interstitial thickening. This is likely chronic however superimposed infectious process would be d ifficult to exclude. ACT 112: Negative or not required by law. Electronically signed by: Eduardo Loera M.D. 10/20/2020 6:40 PM
[2020-10-20] MEDS ORDERED: ALBUT/IPRATROP 3MG/0.5MG NEB 3 ML VIAL NEB STA (18:42)
[2020-10-20] MEDS ORDERED: SODIUM CHLORIDE 0.9% 500 ML IV ONE (18:42)
[2020-10-20] MEDS ORDERED: MAGNESIUM SULFATE / D5W 1 GM/100 ML BAG IV SCH (18:45)
[2020-10-20] MEDS ORDERED: OPTIRAY 320 125ml IV ONE (19:04)
--- NOTE | 2020-10-20 19:26 | CT Scan Report ---
CT ANGIOGRAPHY OF THE CHEST, PULMONARY EMBOLUS PROTOCOL CLINICAL HISTORY: PE, +dimer, neg COVID, SOB/CP COMPARISON STUDY: Chest CT September 02, 2020. Chest radiograph performed earlier today. TECHNIQUE: Following IV administration of 118 mL of Optiray-320, helical axial images of the chest we re obtained utilizing the pulmonary embolus protocol. Maximal intensity projections and sagittal and coronal reformats were viewed on an independent 3D workstation. IV contrast was administered withou t complication. Automated exposure control was utilized for the study. A dose lowering technique wa s utilized adhering to the principles of ALARA. CT DOSE: 430.24 mGy.cm FINDINGS: No pulmonary emboli are identified. There is no thoracic aortic dissection. No enlarged th oracic lymph nodes are present. The size of the heart is normal. There is moderate coronary artery ca lcification. There is no pericardial effusion. No pneumothorax or pleural effusion is noted. Lung hyp erexpansion is noted with severe emphysema. Subpleural reticulation with cystic change and suspected honeycombing is similar to prior exam. No superimposed consolidation is noted. The appearance of the chest is similar to CT of 2019. Mild bronchial wall thickening is noted. A few old bilateral rib f ractures are noted. The liver is markedly dysmorphic with nodularity liver surface indicative of cirr hosis. IMPRESSION: 1. No pulmonary emboli identified. 2. Severe emphysema and superimposed interstitial lung disease, similar to prior CT of September 02 020. No superimposed consolidation. ACT 112: Negative or not required by law. Electronically signed by: Eduardo Loera M.D. 10/20/2020 7:25 PM
--- NOTE | 2020-10-20 20:52 | History & Physical Report ---
Date of Service October 20, 2020 Assessment & Plan (1) COPD (chronic obstructive pulmonary disease) with emphysema: 89yo C male with history of severe COPD, on 3L home O2 presenting with 3 weeks of progressive SOB, cough and wheeze, acutely worsening over the last 3-4 days. Patient follows with Dr. Hines, last seen in June 2020. He has also been seen by Palliative Care in the past. Suspect acute exacerbation of COPD as underlying cause of SOB as well as chest pain. Patient with no evidence of volume overload. No clear infectious process noted on imaging. Covid-10 NEGATIVE - low suspicion for this as patient stays at home and has had no contacts with [employer] to his knowledge. -Admit to medical with telemetry monitoring -DuoNebs q 6 hours scheduled -Albuterol q 2 hours PRN -Mucinex 1200mg po BID -Flutter valve q 4 hours -Supplemental O2 as needed to maintain saturation >89% -Azithromycin 500mg IV daily -Solumedrol 40mg IV TID -Continue Budesonide/Formoterol -Fingersticks with ISS while patient on IV steroids Present on Admission?: Yes (2) Chest pain: Possibly secondary to #1. Troponin x 1 negative. No EKG evidence of acute ischemia -Telemetry monitoring -Trend troponin q 8 hours x 3 sets -ASA 81mg po daily Present on Admission?: Yes (3) Hypertension: Blood pressure mildly elevated at present. 163/96 -Continue Lisinopril 5mg po daily -Continue to monitor Present on Admission?: Yes (4) Elevated serum creatinine: Mildly elevated BUN and Cr from baseline -LR x 1 liter -Repeat chemistry in AM Present on Admission?: Yes (5) GERD without esophagitis: Chronic. Stable -Continue Protonix 40mg po BID F/E/N -LR at 80mL/hr x 1 liter, encourage PO intake, Check Mg and PO4 x 1 and replete as needed, Heart healthy/CC diet as tolerated Ppx - Lovenox 30 Code - Conditional Dispo - Admit to medical with telemetry History of Present Illness Chief Complaint: chest pain, SOB Primary Care Provider: DO Cuco Zuniga is a pleasant 89yo C male with history of severe COPD, on home O2 3L, ILD presenting with CP and worsening SOB. He reports 3 weeks of progressively worsening SOB, dry cough and wheeze with acute worsening over the last 3-4 days. Today he experienced severe SOB as well as mid-chest pain 5/10 in severity which prompted him to come to the ER. EMS states that patient was visibly dyspneic on arrival - speaking in 1-2 word sentences. Patient tachycardic at 142, hypertensive at 230/127, breathing 36 per minute, labored, saturating 91% on 3L NC. Patient denies fever, chills, nausea, vomiting. He has been having a lot of gas and has been taking Mylanta at home which has caused diarrhea for the last few days. Otherwise, no complaints. No known Covid-19 exposures. Rapid antigen testing for Covid-19 performed in ER is NEGATIVE ER Course: Albuterol/Ipratropium neb and Solumedrol 125mg IV administered by EMS Albuterol 3mL, ASA 324mg, Mg x 1gm, NSS x 500 Allergies Allergy/AdvReac Type Severity Reaction Status Date / Time No Known Allergies Allergy Verified 10/20/20 20:08 Home Medications Medication Instructions Recorded Confirmed Type lactobacillus combination no.4 3,000 cell PO DAILY #7 cap 02/14/19 10/20/20 Rx [Probiotic] lisinopril 10 mg tablet 5 mg PO DAILY #45 tab 05/21/19 10/20/20 Rx lyquesqr-rzb-ajkoi acid 300 1 tab PO DAILY 05/21/19 10/20/20 History mcg-lycopene 600 mcg-lutein 300 mcg tablet metoclopramide HCl 10 mg tablet 10 mg PO BID #60 tab 04/08/20 10/20/20 Rx pantoprazole 40 mg tablet,delayed 40 mg PO BID #60 tab 04/08/20 10/20/20 Rx release dutasteride 0.5 mg capsule 0.5 mg PO DAILY #90 cap 05/09/20 10/20/20 Rx budesonide-formoterol HFA 160 2 puff INHALATION BID #3 inhaler 07/14/20 10/20/20 Rx mcg-4.5 mcg/actuation aerosol inhaler ipratropium 0.5 mg-albuterol 3 mg 3 ml INHALATION Q6H PRN #360 ml 07/14/20 10/20/20 Rx (2.5 mg base)/3 mL nebulization soln prednisone 10 mg tablet 10 mg PO .COMPLEX #40 tab 07/14/20 10/20/20 Rx acetaminophen [Tylenol Arthritis] 1,300 mg PO Q12H PRN 10/20/20 10/20/20 History Past Med/Surg History Medical History Alcoholic cirrhosis Anemia Benign localized prostatic 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) Chronic obstructive pulmonary disease Chronic respiratory failure Dependence on supplemental oxygen Dyslipidemia Gastroparesis GERD without esophagitis Hypertension Impaired fasting glucose Incomplete bladder emptying Myocardial infarction Peptic ulcer disease Pneumonia Pulmonary nodule Thrombocytopenia Surgical History Hx of appendectomy Hx of cataract surgery Hx of total knee arthroplasty Family History Father Diabetes Mother Diabetes High blood sugar Thyroid disease Stroke Sister Diabetes Brother Diabetes Cancer Stroke Colorectal cancer Other BPH loc w/o ur obs/LUTS Denies family history of Ovarian cancer Prostate cancer Crohn's disease Myocardial infarction Breast cancer Inflammatory bowel disease Social History Smoking Status: Former smoker Tobacco Type: Cigarettes, Pipe and Cigars Age Started Using Tobacco: 22; Age Quit Using Tobacco: 74; Cigarettes Per Day: 3 packs daily; Second Hand Exposure: No; Hx Alcohol Use: No (None currently, but history of heavy drinking) Hx Substance Use: No Preferred Language: Thai Communication Ability: Effective Visual Impairment: Limited Hearing Ability: Normal Beliefs That Will Affect Care: None marital status: Current Living Situation: Spouse current occupational status: retired How many Children do You have: 0 Feels Safe at Home: Yes Childhood Exposure to Second-Hand Smoke: No caffeine: Yes (tea and coffee occassionally ) Dental Care, Regularly: No Physical Activity Frequency: Does not Exercise Seatbelt Use: always Sunscreen Use: No Assistive Devices: Oxygen - Continuous Review of Systems Review of Systems: All systems reviewed & are unremarkable except as noted in HPI & below Physical Exam Physical Exam: General: elderly male patient resting comfortably, NRB in place, NAD, non-toxic in appearance, AA&O x 4 Skin: warm, dry, intact, scattered bruising noted on hands and forearms HEENT: NC/AT, PERRL, EOMI, anicteric sclera, conjunctiva without injection, external ear normal to inspection and nontender, nares patent, moist mucus membranes, dentition intact, no oropharyngeal lesions, neck supple, trachea midline, no LAD, no thyromegaly, no JVD Heart: +S1/S2, regular, tachycardic, no m/r/g Lungs: equal air entry bilaterally, markedly diminished breath sounds bilaterally, +inspiratory and expiratory wheezing appreciated in anterior lung jules, no rhonchi/rales Abd: +BS, soft, NT/ND, no masses/organomegaly/ascites Ext: warm, 2+ pulses in UE/LE bilaterally, no clubbing/cyanosis or edema Neuro: nonfocal, patient AA&O x 4, speech intact, no facial droop, moving all extremities on command with equal strength 5/5 Results & Data Results & Data ([facility]) Vital Signs (Past 12 Hours) Vital Signs Pulse Pulse Resp BP BP Pulse Ox 10/20/20 20:15 100 H 20 164/90 H 97 10/20/20 19:19 109 H 24 163/95 H 96 10/20/20 19:11 113 H 26 H 97 10/20/20 18:01 109 H 26 H 96 10/20/20 18:00 110 H 21 143/79 H 96 10/20/20 17:33 88 L 10/20/20 16:26 135 H 40 H 138/71 94 Laboratory Results Lab Results 10/20/20 10/20/20 10/20/20 Range/Units 17:56 17:56 17:56 WBC 9.27 (4.8-10.8) K/uL RBC 4.05 L (4.7-6.1) M/uL Hgb 12.9 L (14.0-18.0) g/dL Hct 39.9 L (42-52) % MCV 98.5 (80-100) fL MCH 31.9 (25-34) pg MCHC 32.3 (32-36) g/dL RDW Std Deviation 50.1 H (36.4-46.3) fL RDW Coeff of Emily 14.0 (11.5-14.5) % Plt Count 108 L (130-400) K/uL MPV 11.3 H (7.4-10.4) fL Immature Gran % (Auto) 0.2 % Neut % (Auto) 84.3 % Lymph % (Auto) 10.8 % [place] % (Auto) 4.5 % Eos % (Auto) 0.2 % Baso % (Auto) 0.0 % Neut # (Auto) 7.81 H (1.4-6.5) K/uL Lymph # (Auto) 1.00 L (1.2-3.4) K/uL [place] # (Auto) 0.42 (0.11-0.59) K/uL Eos # (Auto) 0.02 (0-0.5) K/uL Baso # (Auto) 0.00 (0-0.2) K/uL Immature Gran # (Auto) 0.02 (0.00-0.02) K/uL PT 10.9 (9.0-12.0) Seconds INR 1.0 (0.9-1.1) APTT 25.9 (21.0-31.0) Seconds PTT Ratio 0.9 D-Dimer 1990 H* (0-500) ug/L FEU Sodium 141 (136-145) mmol/L Potassium 4.3 (3.5-5.1) mmol/L Chloride 105 (98-107) mmol/L Carbon Dioxide 32 (21-32) mmol/L Anion Gap 4.0 (3-11) BUN 25 H (7-18) mg/dl Creatinine 1.75 H (0.6-1.4) mg/dl Est Cr Clr Drug Dosing 28.0 ml/min Est GFR ( Amer) 39.4 Est GFR (Non-Af Amer) 34.0 BUN/Creatinine Ratio 14.5 (10-20) Glucose 151 H (70-99) mg/dl Lactate (0.4-2.0) mmol/L Calcium 9.0 (8.5-10.1) mg/dl Total Bilirubin 0.4 (0.2-1) mg/dl AST 25 (15-37) U/L ALT 37 (12-78) U/L Alkaline Phosphatase 81 (45-117) U/L Troponin I < 0.015 (0-0.045) ng/ml Total Protein 7.7 (6.4-8.2) gm/dl Albumin 3.6 (3.4-5.0) gm/dl Globulin 4.1 H (2.5-4.0) gm/dl Albumin/Globulin Ratio 0.9 (0.9-2) Lipase 147 (73-393) U/L COVID-19 Eval Order SARS-CoV-2, RNA, NAAT (NEGATIVE) 10/20/20 10/20/20 10/20/20 Range/Units 17:56 17:56 17:56 WBC (4.8-10.8) K/uL RBC (4.7-6.1) M/uL Hgb (14.0-18.0) g/dL Hct (42-52) % MCV (80-100) fL MCH (25-34) pg MCHC (32-36) g/dL RDW Std Deviation (36.4-46.3) fL RDW Coeff of Emily (11.5-14.5) % Plt Count (130-400) K/uL MPV (7.4-10.4) fL Immature Gran % (Auto) % Neut % (Auto) % Lymph % (Auto) % [place] % (Auto) % Eos % (Auto) % Baso % (Auto) % Neut # (Auto) (1.4-6.5) K/uL Lymph # (Auto) (1.2-3.4) K/uL [place] # (Auto) (0.11-0.59) K/uL Eos # (Auto) (0-0.5) K/uL Baso # (Auto) (0-0.2) K/uL Immature Gran # (Auto) (0.00-0.02) K/uL PT (9.0-12.0) Seconds INR (0.9-1.1) APTT (21.0-31.0) Seconds PTT Ratio D-Dimer (0-500) ug/L FEU Sodium (136-145) mmol/L Potassium (3.5-5.1) mmol/L Chloride (98-107) mmol/L Carbon Dioxide (21-32) mmol/L Anion Gap (3-11) BUN (7-18) mg/dl Creatinine (0.6-1.4) mg/dl Est Cr Clr Drug Dosing ml/min Est GFR ( Amer) Est GFR (Non-Af Amer) BUN/Creatinine Ratio (10-20) Glucose (70-99) mg/dl Lactate 2.4 H* (0.4-2.0) mmol/L Calcium (8.5-10.1) mg/dl Total Bilirubin (0.2-1) mg/dl AST (15-37) U/L ALT (12-78) U/L Alkaline Phosphatase (45-117) U/L Troponin I (0-0.045) ng/ml Total Protein (6.4-8.2) gm/dl Albumin (3.4-5.0) gm/dl Globulin (2.5-4.0) gm/dl Albumin/Globulin Ratio (0.9-2) Lipase (73-393) U/L COVID-19 Eval [facility] SARS-[facility]-2, RNA, NAAT NEGATIVE (NEGATIVE) 10/20/20 Range/Units 20:14 WBC (4.8-10.8) K/uL RBC (4.7-6.1) M/uL Hgb (14.0-18.0) g/dL Hct (42-52) % MCV (80-100) fL MCH (25-34) pg MCHC (32-36) g/dL RDW Std Deviation (36.4-46.3) fL RDW Coeff of Emily (11.5-14.5) % Plt Count (130-400) K/uL MPV (7.4-10.4) fL Immature Gran % (Auto) % Neut % (Auto) % Lymph % (Auto) % [place] % (Auto) % Eos % (Auto) % Baso % (Auto) % Neut # (Auto) (1.4-6.5) K/uL Lymph # (Auto) (1.2-3.4) K/uL [place] # (Auto) (0.11-0.59) K/uL Eos # (Auto) (0-0.5) K/uL Baso # (Auto) (0-0.2) K/uL Immature Gran # (Auto) (0.00-0.02) K/uL PT (9.0-12.0) Seconds INR (0.9-1.1) APTT (21.0-31.0) Seconds PTT Ratio D-Dimer (0-500) ug/L FEU Sodium (136-145) mmol/L Potassium (3.5-5.1) mmol/L Chloride (98-107) mmol/L Carbon Dioxide (21-32) mmol/L Anion Gap (3-11) BUN (7-18) mg/dl Creatinine (0.6-1.4) mg/dl Est Cr Clr Drug Dosing ml/min Est GFR ( Amer) Est GFR (Non-Af Amer) BUN/Creatinine Ratio (10-20) Glucose (70-99) mg/dl Lactate 2.6 H* (0.4-2.0) mmol/L Calcium (8.5-10.1) mg/dl Total Bilirubin (0.2-1) mg/dl AST (15-37) U/L ALT (12-78) U/L Alkaline Phosphatase (45-117) U/L Troponin I (0-0.045) ng/ml Total Protein (6.4-8.2) gm/dl Albumin (3.4-5.0) gm/dl Globulin (2.5-4.0) gm/dl Albumin/Globulin Ratio (0.9-2) Lipase (73-393) U/L COVID-19 Eval Order SARS-CoV-2, RNA, NAAT (NEGATIVE) Diagnostic Findings CT ANGIOGRAPHY OF THE CHEST, PULMONARY EMBOLUS PROTOCOL CLINICAL HISTORY: PE, +dimer, neg COVID, SOB/CP COMPARISON STUDY: Chest CT September 02, 2020. Chest radiograph performed earlier today. TECHNIQUE: Following IV administration of 118 mL of Optiray-320, helical axial images of the chest were obtained utilizing the pulmonary embolus protocol. Maximal intensity projections and sagittal and coronal reformats were viewed on an independent 3D workstation. IV contrast was administered without complication. Automated exposure control was utilized for the study. A dose lowering technique was utilized adhering to the principles of ALARA. CT DOSE: 430.24 mGy.cm FINDINGS: No pulmonary emboli are identified. There is no thoracic aortic dissection. No enlarged thoracic lymph nodes are present. The size of the heart is normal. There is moderate coronary artery calcification. There is no pericardial effusion. No pneumothorax or pleural effusion is noted. Lung hyperexpansion is noted with severe emphysema. Subpleural reticulation with cystic change and suspected honeycombing is similar to prior exam. No superimposed consolidation is noted. The appearance of the chest is similar to CT of 2019. Mild bronchial wall thickening is noted. A few old bilateral rib fractures are noted. The liver is markedly dysmorphic with nodularity liver surface indicative of cirrhosis. IMPRESSION: 1. No pulmonary emboli identified. 2. Severe emphysema and superimposed interstitial lung disease, similar to prior CT of September 02, 2020. No superimposed consolidation. ACT 112: Negative or not required by law. Electronically signed by: Eduardo Loera M.D. 10/20/2020 7:25 PM Dictated: 10/20/201916Transcribed: 10/20/201916 XR chest 1V portable CLINICAL HISTORY: Atypical chest pain. COMPARISON STUDY: Chest CT September 02, 2020. FINDINGS: Lung volumes are increased. There is no pneumothorax or pleural effusion. No lobar consolidation is present. There is severe emphysema. Mild interstitial thickening is noted, most evident within the left lower lung. Cardiomediastinal silhouette is stable. There is no evidence for pulmonary edema. IMPRESSION: 1. Severe emphysema. 2. Interstitial thickening. This is likely chronic however superimposed infectious process would be difficult to exclude. ACT 112: Negative or not required by law. Electronically signed by: Eduardo Loera M.D. 10/20/2020 6:40 PM Dictated: 10/20/201837Transcribed: 10/20/201837 ECG Additional Comments: EKG wtih ST at 109, left axis deviation, NU=659, IQH=321, ERn=570, RBBB present, no acute ischemic changes Code Status & VTE Plan Code Status Conditional. Patient states resuscitation is acceptable to try but would not like prolonged life support. He does not wish to be intubated or mechanically ventilated in event of respiratory failure PG Care Time/CCT Total # of Minutes Spent Total Time Spent with Patient: Total time spent is greater than 50% in coordination of care (as documented) at patient's floor/unit and/or counseling patient: Coding Level of Care Code 71084 Initial Inpt Care Lvl 3 Diagnoses COPD (chronic obstructive pulmonary disease) with emphysema J43.1 Emphysema type: panlobular Chest pain R07.9 Chest pain type: unspecified Hypertension I10 Hypertension type: essential hypertension Elevated serum creatinine R79.89 GERD without esophagitis K21.9 (1) 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
[2020-10-20] MEDS ORDERED: ACETAMINOPHEN 325 MG TAB PO PRN (21:57)
[2020-10-20] MEDS ORDERED: CARBOHYDRATES FOR HYPOGLYCEMIA PO PRN (21:57)
[2020-10-20] MEDS ORDERED: DEXTROSE 50% 50 ML SYRINGE IV PRN (21:57)
[2020-10-20] MEDS ORDERED: GLUCOSE 40% GEL 15 GM TUBE PO PRN (21:57)
[2020-10-20] MEDS ORDERED: LACTATED RINGER'S 1,000 ML IV SCH (21:57)
[2020-10-20] MEDS ORDERED: GLUCAGON FOR INJ 1 MG VIAL SQ PRN (21:57)
[2020-10-20] MEDS ORDERED: GLUCOSE 10 TABS/TUBE PO PRN (21:57)
[2020-10-20] MEDS ORDERED: ONDANSETRON INJ 2 MG/ML 2 ML VIAL IV PRN (21:57)
[2020-10-20] MEDS: ALBUTEROL 0.5% NEB SOLN 2.5 MG/0.5 ML VIAL NEB PRN (22:04)
[2020-10-20] MEDS: guaiFENesin 600 MG TABCR PO SCH (22:36)
[2020-10-20] MEDS: INSULIN ASPART 100 UNITS/ML 3 ML PEN SC SCH (22:37)
[2020-10-20 22:38] LABS: Magnesium 2.5 mg/dl (1.8-2.4)
[2020-10-20] MEDS: AVODART~ORDER AWAITING ACTION SCH ×2 (22:38→23:33)
[2020-10-20] MEDS: PANTOprazole 40 MG TAB PO SCH (22:38)
[2020-10-20] MEDS: METOCLOPRAMIDE HCL 10 MG TABLET PO SCH (22:38)
[2020-10-20] MEDS: methylPREDNISolone 40 MG in SYRINGE 0 ML IV SCH (23:28)
[2020-10-20] MEDS: AZITHROMYCIN 500 MG in DEXTROSE 5% 250 ML IV SCH (23:29)
[2020-10-21] MEDS: ALBUT/IPRATROP 3MG/0.5MG NEB 3 ML VIAL INH SCH ×4 (01:21→19:46)
[2020-10-21 04:44] LABS: Hematocrit (blood only) 38.4 % (42-52); Hemoglobin 12.3 g/dL (14.0-18.0); Mean Corpuscular Hemoglobin 31.4 pg (25-34); RDW Coefficient of Variation 13.8 % (11.5-14.5); RDW Standard Deviation 48.8 fL (36.4-46.3); Red Blood Count 3.92 M/uL (4.7-6.1); White Blood Count 5.37 K/uL (4.8-10.8)
[2020-10-21 05:09] LABS: BUN Creatinine Ratio 22.6 (10-20); Blood Urea Nitrogen 24 mg/dl (7-18); Calcium 8.5 mg/dl (8.5-10.1); Carbon Dioxide 33 mmol/L (21-32); Chloride 103 mmol/L (98-107); Creatinine Clr Calc Pharmacy 46.5 ml/min; Est GFR (African American) 72.3; Est GFR (Non-African American) 62.4; Glucose 160 mg/dl (70-99); Potassium 4.5 mmol/L (3.5-5.1); Sodium 138 mmol/L (136-145); Troponin I < 0.015 ng/ml (0-0.045)
[2020-10-21 05:17] LABS: Mean Platelet Volume 11.3 fL (7.4-10.4); Platelet Count 88 K/uL (130-400)
[2020-10-21 05:20] LABS: Giant Platelets 1+; Immature Granulocytes # (auto) 0.01 K/uL (0.00-0.02); Immature Granulocytes % (auto) 0.2 %; Lymphocytes # (auto) 0.33 K/uL (1.2-3.4); Lymphocytes % (auto) 6.1 %; Monocytes # (auto) 0.12 K/uL (0.11-0.59); Monocytes % (auto) 2.2 %; Neutrophils # (auto) 4.91 K/uL (1.4-6.5); Neutrophils % (auto) 91.5 %; Platelet Estimate Decreased (Normal)
[2020-10-21] MEDS: methylPREDNISolone 40 MG in SYRINGE 0 ML IV SCH ×3 (06:04→20:05)
[2020-10-21] MEDS: FLUTICASONE/VILANTEROL 100/25MCG 14 PUFFS/INHALER INH SCH (08:22)
[2020-10-21] MEDS: METOCLOPRAMIDE HCL 10 MG TABLET PO SCH ×2 (08:22→20:05)
[2020-10-21] MEDS: PANTOprazole 40 MG TAB PO SCH ×2 (08:22→20:05)
[2020-10-21] MEDS: guaiFENesin 600 MG TABCR PO SCH ×2 (08:22→20:05)
[2020-10-21] MEDS: AVODART~ORDER AWAITING ACTION SCH ×3 (08:22→23:14)
[2020-10-21] MEDS: INSULIN ASPART 100 UNITS/ML 3 ML PEN SC SCH ×4 (08:24→20:18)
[2020-10-21] MEDS ORDERED: lisinopril 5 MG TAB PO SCH (09:00)
--- NOTE | 2020-10-21 10:20 | Hospitalist Progress Note ---
Date of Service October 21, 2020 Assessment & Plan (1) COPD exacerbation: 89yo C male with history of severe COPD, on 3L home O2 here with 3 weeks of progressive SOB, cough and wheeze, acutely worsening over the last 3-4 days. Patient with no evidence of volume overload. No clear infectious process noted on imaging. Covid-10 NEGATIVE - low suspicion for this as patient stays at home and has had no contacts with covid to his knowledge. COPD exacerbation Some improvement this morning but feeling worse after eating. follows with Dr. Hines, last seen in June 2020. He has also been seen by Palliative Care in the past. -DuoNebs q 6 hours scheduled, Albuterol q 2 hours PRN, Mucinex 1200mg po BID -Flutter valve q 4 hours -Azithromycin 500mg IV daily -Solumedrol 40mg IV TID; Fingersticks with ISS while patient on IV steroids -Continue Budesonide/Formoterol Chest pain: Possibly secondary to COPD exac. Troponin set negative. No EKG evidence of acute ischemia -pain resolved Chronic respiratory failure -Supplemental O2 as needed to maintain saturation >89% Hypertension: Blood pressure elevated likely from external stressor and ?IV steroids -On Lisinopril 5mg po daily - increase to 10mgs. Will likely need to switch back to home dose on discharge Acute kidney injury: ? sec to poor oral intake -Resolved with IV hydration GERD without esophagitis/Gastroparesis: Chronic. Stable -Continue Protonix 40mg po BID -home metoclopramide -prn mylanta F/E/N -PO intake,Heart healthy/CC diet as tolerated Ppx - Lovenox 30 Code - Conditional Dispo - Tele (2) Chronic respiratory failure: (3) GERD without esophagitis: (4) Gastroparesis: (5) Hypertension: (6) Elevated serum creatinine: Admission and Anticipated Discharge Date Admission Date: October 20, 2020 Subjective breathing somewhat better this morning but worse after having breakfast no chest pain. having heartburn. no fever Physical Exam Constitutional: WD/WN, vitals as above Respiratory: Mild respiratory distress, decreased breath sounds across both lung field with mild wheeze Cardiovascular: Rate/Rhythm: regular rate Gastrointestinal (Abdomen): normal bowel sounds, soft, nontender, no hepa tosplenomegaly Results & Data Results & Data ([facility]) Vital Signs (Past 12 Hours) Vital Signs Temp Pulse Pulse Resp BP Pulse Ox 10/21/20 09:51 81 10/21/20 08:24 36.5 C 104 H 16 173/109 H 95 10/21/20 07:23 88 18 97 10/21/20 05:22 36.4 C L 88 20 154/79 H 97 10/21/20 01:21 109 H 24 96 10/21/20 00:17 115 H 10/20/20 22:56 36.5 C 108 H 22 137/83 97 (1) Hypertension Hypertension type: essential hypertension Qualified Code(s): I10 - Essential (primary) hypertension
[2020-10-21] MEDS ORDERED: lisinopril 5 MG TAB PO ONE (11:00)
[2020-10-21] MEDS: ALUMINUM/MAGNESIUM/SIMETH (MAALOX MAX) 30 ML UDC PO PRN ×2 (11:17→20:11)
--- NOTE | 2020-10-21 12:44 | Electrocardiogram Report ---
Test Reason : Blood Pressure : / mmHG Vent. Rate : 109 BPM Atrial Rate : 109 BPM P-R Int : 158 ms QRS Dur : 126 ms QT Int : 344 ms P-R-T Axes : 071 -79 076 degrees QTc Int : 463 ms Poor data quality, interpretation may be adversely affected Sinus tachycardia Left anterior fascicular block Right bundle branch block Abnormal ECG When compared with ECG of 20-OCT-2020 17:12, (unconfirmed) Criteria for Anteroseptal infarct are no longer Present Confirmed by Lul Ndiaye ([id number]) on 10/21/2020 12:44:09 PM Referred By: REFERRED SELF Confirmed By:Jonny Ndiaye
--- NOTE | 2020-10-21 12:45 | Electrocardiogram Report ---
Test Reason : Blood Pressure : / mmHG Vent. Rate : 131 BPM Atrial Rate : 131 BPM P-R Int : 144 ms QRS Dur : 120 ms QT Int : 316 ms P-R-T Axes : 074 -82 081 degrees QTc Int : 466 ms Poor data quality, interpretation may be adversely affected Sinus tachycardia Left anterior fascicular block Right bundle branch block Abnormal ECG When compared with ECG of 10-FEB-2019 13:24, Anteroseptal infarct is now Present Confirmed by Lul Ndiaye ([id number]) on 10/21/2020 12:44:52 PM Referred By: REFERRED SELF Confirmed By:Jonny Ndiaye
[2020-10-21] MEDS: AZITHROMYCIN 500 MG in DEXTROSE 5% 250 ML IV SCH (20:11)
[2020-10-22] MEDS: ALBUT/IPRATROP 3MG/0.5MG NEB 3 ML VIAL INH SCH ×4 (00:55→20:36)
[2020-10-22] MEDS: ALBUTEROL 0.5% NEB SOLN 2.5 MG/0.5 ML VIAL NEB PRN (03:56)
[2020-10-22] MEDS: methylPREDNISolone 40 MG in SYRINGE 0 ML IV SCH ×3 (06:40→21:16)
[2020-10-22] MEDS: AVODART~ORDER AWAITING ACTION SCH ×3 (07:57→23:45)
[2020-10-22] MEDS: INSULIN ASPART 100 UNITS/ML 3 ML PEN SC SCH ×4 (08:00→21:14)
[2020-10-22] MEDS: PANTOprazole 40 MG TAB PO SCH ×2 (08:01→20:40)
[2020-10-22] MEDS: FLUTICASONE/VILANTEROL 100/25MCG 14 PUFFS/INHALER INH SCH (08:01)
[2020-10-22] MEDS: METOCLOPRAMIDE HCL 10 MG TABLET PO SCH ×2 (08:01→20:40)
[2020-10-22] MEDS: lisinopril 10 MG TAB PO SCH (08:01)
[2020-10-22] MEDS: guaiFENesin 600 MG TABCR PO SCH ×2 (08:01→20:40)
[2020-10-22] MEDS: ALUMINUM/MAGNESIUM/SIMETH (MAALOX MAX) 30 ML UDC PO PRN ×2 (12:07→17:50)
--- NOTE | 2020-10-22 14:38 | Hospitalist Progress Note ---
Date of Service October 22, 2020 Assessment & Plan (1) COPD exacerbation: Cuco Galvan is an 89yo male with a PMH of severe COPD (home oxygen requirement 3L around the clock), HTN, and GERD who presents with 2-3 weeks of progressive SOB with exertion and later at rest, acutely worsening over the last 3-4 days. Patient with no evidence of volume overload. No clear infectious process noted on imaging. Patient tested negative for covid, has been staying home recently, has had no known covid contacts, and therefore, suspicion for covid is very lowl COPD exacerbation, chronic respiratory failure -patient has history of frequent COPD exacerbations and reports they feel "just like this" - last COPD exacerbation about one month ago -notes he feels much better than yesterday, though admits he is not quite at baseline -c/w azithromycin 500mg IV (three day course) -continue solumedrol 40mg IV tid -fingersticks with ISS while patient is on IV steroids -continue budesonide/formoterol -continue duonebs q6h -continue albuterol q2h prn -continue mucinex 1200mg PO bid -supplemental oxygen prn to maintain saturation above 89%, noting home dose is 3L chronically Chest pain -reportedly relieved by mylanta and by belching; suspect indigestion or GERD as cause -repeat troponins neg, no EKG evidence of acute ischemia, symptoms not suggestive of ACS -pain resolved at current moment HTN -contributing factors include underlying HTN, COPD exacerbation, steroids -continue lisinopril 10mg PO qd (home dose 5mg PO qd, likely will need to reduce dose back to home dose upon discharge) Acute kidney injury: resolved -potentially due to poor PO intake; however, has resolved and PO intake is improving GERD: stable -c/w protonix 40mg PO bid -prn mylanta FENGI: heart healthy diet DVT ppx: lovenox 30mg sq qd Code: conditional (DNI, otherwise full code) Dispo: telemetry (2) Chronic respiratory failure: (3) GERD without esophagitis: Admission and Anticipated Discharge Date Admission Date: October 20, 2020 Supervising Physician Co-Signing Physician Notes I also saw the patient the resident physician and confirmed joaquin portions of the history and physical examination. I agree with the impression and plan in the resident documentation and as summarized below. This morning, he is seated at bedside noting improved breathing. He does not feel as if he is at his baseline. Exam 119/68, 89, 20, 36.3, 97% (3 L/min via nasal cannula). Pleasant. No acute distress. Nontoxic-appearing. Lungs with decreased air movement throughout, expiratory wheezing with marked prolonged expiratory phase. Data Hemoglobin 12.3, white blood cell count 5.37 (10/21). Platelet count 88 (10/21). CTA of chest (10/20) demonstrated no pulmonary emboli, severe emphysema/interstitial lung disease without consolidation. Assessment and Plan COPD exacerbation Continue current care including respiratory treatments, azithromycin, Solu- Medrol. His lung exam today is not quite good enough to transition to oral steroids. He has had quite a few of similar admissions so will use his judgment as guide to help with transition. It is noted that he has seen palliative care in past for end-stage pulmonary disease. Hypertension Well-controlled at present. Is noted that his lisinopril was increased from 5 to 10 mg upon admission We will need to guard against overtreatment and subsequent hypotension so likely will discharge back on home dose of 5 mg Acute kidney injury BMP in AM Alcoholic cirrhosis Thrombocytopenia Primary care notes note a history of alcohol use, with cessation about a decade ago. The thrombocytopenia looks to be chronic and I suspect this is secondary to his hepatic dysfunction. PT was noted to be normal upon admission. Seemingly stable but will monitor. GERD without esophagitis/Gastroparesis Stable continue home regimen Subjective Patient reports feeling "better than yesterday", noting an improvement in his breathing, though he admits his breathing is not yet at baseline. He notes he became very short of breath just prior to our conversation because he walked to the bathroom and back. He notes recent occurrences of a band of pain near the bottom of his ribs which extends laterally across his chest and is relieved by belching or by taking mylanta. He expresses this concern is due to a "tear in (his) diaphragm" that he was told he had by a provider some years ago. Review of Systems Constitutional: + fatigue; no fever and no chills Respiratory: + cough, + dyspnea and + dyspnea on exertion; no pain on inspiration on 3L NC Cardiovascular: no palpitations, no lightheadedness and no syncope Gastrointestinal: no abdominal pain, no nausea and no vomiting Genitourinary: no dysuria Physical Exam Constitutional: cooperative; no acute distress Respiratory: + labored breathing, + prolonged expiratory phase, + audible wheezes and symmetric chest movement Auscultation: + diminished lung sounds and + rales Cardiovascular: Rate/Rhythm: regular rate and regular rhythm Heart Sounds: no murmur Neurologic: no focal motor deficits and not confused Psychiatric: A+Ox3, euthymic affect Results & Data Results & Data ([place]) Vital Signs (Past 12 Hours) Vital Signs Temp Pulse Pulse Resp BP Pulse Ox 10/22/20 13:18 90 20 97 10/22/20 11:54 36.3 C L 82 20 119/68 97 10/22/20 09:51 78 10/22/20 07:59 81 20 97 10/22/20 07:49 36.5 C 78 16 113/61 97 10/22/20 04:31 36.6 C 89 18 115/62 97 10/22/20 03:56 85 20 96 Resident Activity Tracking Resident Involvement: Resident Care Provided Care Provided: Adult Hospital Medicine
[2020-10-22] MEDS: AZITHROMYCIN 500 MG in DEXTROSE 5% 250 ML IV SCH (21:16)
[2020-10-23] MEDS: ALBUT/IPRATROP 3MG/0.5MG NEB 3 ML VIAL INH SCH ×4 (01:30→19:55)
[2020-10-23] MEDS: methylPREDNISolone 40 MG in SYRINGE 0 ML IV SCH ×3 (05:45→20:49)
[2020-10-23 06:30] LABS: Hematocrit (blood only) 40.9 % (42-52); Hemoglobin 13.2 g/dL (14.0-18.0); Mean Corpuscular Hemoglobin 31.7 pg (25-34); Mean Corpuscular Hgb Conc 32.3 g/dL (32-36); Mean Corpuscular Volume 98.3 fL (80-100); Mean Platelet Volume 11.4 fL (7.4-10.4); Platelet Count 136 K/uL (130-400); RDW Standard Deviation 49.6 fL (36.4-46.3); Red Blood Count 4.16 M/uL (4.7-6.1); White Blood Count 10.93 K/uL (4.8-10.8)
[2020-10-23 06:41] LABS: Immature Granulocytes # (auto) 0.05 K/uL (0.00-0.02); Immature Granulocytes % (auto) 0.5 %; Lymphocytes # (auto) 0.66 K/uL (1.2-3.4); Monocytes # (auto) 0.56 K/uL (0.11-0.59); Monocytes % (auto) 5.1 %; Neutrophils # (auto) 9.66 K/uL (1.4-6.5); Neutrophils % (auto) 88.4 %
[2020-10-23 07:02] LABS: BUN Creatinine Ratio 31.5 (10-20); Creatinine Clr Calc Pharmacy 46.6 ml/min; Est GFR (Non-African American) 63.8; Potassium 4.3 mmol/L (3.5-5.1)
--- NOTE | 2020-10-23 08:10 | Hospitalist Progress Note ---
Date of Service October 23, 2020 Assessment & Plan (1) COPD exacerbation: Cuco Galvan is an 89yo male with a PMH of severe COPD (home oxygen requirement 3L around the clock), HTN, and GERD who presents with 2-3 weeks of progressive SOB with exertion and later at rest, acutely worsening over the last 3-4 days. Patient with no evidence of volume overload. No clear infectious process noted on imaging. Patient tested negative for covid, has been staying home recently, has had no known covid contacts, and therefore, suspicion for covid is very lowl COPD exacerbation, chronic respiratory failure -patient has history of frequent COPD exacerbations and reports they feel "just like this" - last COPD exacerbation about one month ago -notes he feels much better than on admission, though admits he is not quite at baseline -last dose of azithromycin 500mg IV given today (three day course) -continue solumedrol 40mg IV tid -fingersticks with ISS while patient is on IV steroids -continue budesonide/formoterol -continue duonebs q6h -continue albuterol q2h prn -continue mucinex 1200mg PO bid -supplemental oxygen prn to maintain saturation above 89%, noting home dose is 3L chronically; O2 raised from 3L to 4L during interview today Chest pain -reportedly relieved by mylanta and by belching; suspect indigestion or GERD as cause -repeat troponins neg, no EKG evidence of acute ischemia, symptoms not suggestive of ACS -simethicone 80mg PO q6h prn added HTN -contributing factors include underlying HTN, COPD exacerbation, steroids -continue lisinopril 10mg PO qd (home dose 5mg PO qd, likely will need to reduce dose back to home dose upon discharge) Acute kidney injury: resolved -potentially due to poor PO intake; however, has resolved and PO intake is improving GERD: stable -c/w protonix 40mg PO bid -prn mylanta FENGI: heart healthy diet DVT ppx: lovenox 30mg sq qd Code: conditional (DNI, otherwise full code) Dispo: telemetry (2) Chronic respiratory failure: (3) GERD without esophagitis: Admission and Anticipated Discharge Date Admission Date: October 20, 2020 Supervising Physician Co-Signing Physician Notes I also saw the patient the resident physician and confirmed joaquin portions of the history and physical examination. I agree with the impression and plan in the resident documentation and as summarized below. This afternoon he is seated in the bedside chair. He has increased dyspnea and work of breathing as he is just returned to the bedside commode. He explains that this is usual for him, although the recovery time is longer now compared to his baseline. Exam 150/80, 91, 18, 36.5, 97% on 4 L/min Increased work of breathing compared to yesterday; 1-2 sentence conversational dyspnea Lungs with decreased air movement throughout, expiratory wheezing with marked prolonged expiratory phase. He really sounds about the same compared to yesterday Data White blood cell count 10.9, hemoglobin 13.2, platelet count 136. BUN 33, creatinine 1.04 CTA of chest (10/20) demonstrated no pulmonary emboli, severe emphysema/interstitial lung disease without consolidation. Assessment and Plan Acute on chronic respiratory failure with hypoxia COPD exacerbation Continue current care including respiratory treatments, azithromycin, Solu- Medrol. He has had quite a few of similar admissions so will use his judgment as guide to help with transition. It is noted that he has seen palliative care in past for end-stage pulmonary disease. Hypertension Some elevation consistent with his periods of dyspnea Monitor and could further titrate medications if needed We will need to guard against overtreatment and subsequent hypotension so likely will discharge back on home dose of 5 mg Acute kidney injury BMP in AM Alcoholic cirrhosis Thrombocytopenia Improved today and this is likely due to the steroids Primary care notes note a history of alcohol use, with cessation about a decade ago. The thrombocytopenia looks to be chronic and I suspect this is secondary to his hepatic dysfunction. PT was noted to be normal upon admission. GERD without esophagitis/Gastroparesis Stable continue home regimen Trial simethicone for symptomatic relief Subjective Patient reports feeling "okay" today, noting he feels far better than he did on admission, but that he had a difficult episode of SOB last night. He got up to use the restroom, and after he returned to bed, he was so winded that it took him "about an hour" for his breathing to return to his current baseline. His BP was noted to be in the 210s/110s at this time. He did feel better after resting. He currently complains of his chest pain and mentions he would want to use mylanta except it causes diarrhea for him. Other than this he has no complaints today. Review of Systems Constitutional: + fatigue; no fever and no chills Respiratory: + cough, + dyspnea and + dyspnea on exertion; no pain on inspiration on 4L NC Cardiovascular: no palpitations, no lightheadedness and no calf pain Physical Exam Constitutional: cooperative; no acute distress Respiratory: + labored breathing, + prolonged expiratory phase, + audible wheezes and symmetric chest movement Auscultation: + diminished lung sounds and + rales lung sounds distant, coarse, with wheezes throughout, and rhonchi in the inferior jules; expiratory wheezing audible from a distance of ~10ft Cardiovascular: Rate/Rhythm: regular rate and regular rhythm Heart Sounds: no murmur Neurologic: no focal motor deficits and not confused Psychiatric: A+Ox3, euthymic affect Results & Data Results & Data ([facility]) Vital Signs (Past 12 Hours) Vital Signs Temp Pulse Pulse Resp BP Pulse Ox 10/23/20 08:01 92 H 18 98 10/23/20 07:31 84 10/23/20 07:21 36.4 C L 81 20 153/81 H 97 10/23/20 04:05 77 10/23/20 03:08 36.6 C 92 H 18 162/83 H 95 10/23/20 01:31 110 H 22 98 10/22/20 23:13 36.4 C L 104 H 20 181/84 H 96 10/22/20 20:36 90 18 98 Resident Activity Tracking Resident Involvement: Resident Care Provided Care Provided: Adult Hospital Medicine
[2020-10-23] MEDS: FLUTICASONE/VILANTEROL 100/25MCG 14 PUFFS/INHALER INH SCH (08:22)
[2020-10-23] MEDS: AVODART~ORDER AWAITING ACTION SCH ×2 (08:22→15:36)
[2020-10-23] MEDS: INSULIN ASPART 100 UNITS/ML 3 ML PEN SC SCH ×4 (08:23→20:49)
[2020-10-23] MEDS: lisinopril 10 MG TAB PO SCH (08:27)
[2020-10-23] MEDS: PANTOprazole 40 MG TAB PO SCH ×2 (08:27→20:49)
[2020-10-23] MEDS: METOCLOPRAMIDE HCL 10 MG TABLET PO SCH ×2 (08:27→20:49)
[2020-10-23] MEDS: guaiFENesin 600 MG TABCR PO SCH ×2 (08:27→20:49)
[2020-10-23] MEDS: ALUMINUM/MAGNESIUM/SIMETH (MAALOX MAX) 30 ML UDC PO PRN (19:09)
[2020-10-24] MEDS: ALBUT/IPRATROP 3MG/0.5MG NEB 3 ML VIAL INH SCH ×4 (00:09→20:06)
[2020-10-24] MEDS: AVODART~ORDER AWAITING ACTION SCH ×4 (01:26→23:50)
[2020-10-24] MEDS: methylPREDNISolone 40 MG in SYRINGE 0 ML IV SCH ×2 (06:49→14:01)
[2020-10-24 07:32] LABS: Hematocrit (blood only) 39.5 % (42-52); Hemoglobin 12.7 g/dL (14.0-18.0); Immature Granulocytes % (auto) 0.4 %; Lymphocytes # (auto) 0.51 K/uL (1.2-3.4); Lymphocytes % (auto) 6.4 %; Mean Corpuscular Hemoglobin 31.4 pg (25-34); Mean Corpuscular Hgb Conc 32.2 g/dL (32-36); Mean Corpuscular Volume 97.8 fL (80-100); Mean Platelet Volume 11.4 fL (7.4-10.4); Monocytes # (auto) 0.53 K/uL (0.11-0.59); Monocytes % (auto) 6.6 %; Neutrophils # (auto) 6.95 K/uL (1.4-6.5); Neutrophils % (auto) 86.6 %; Platelet Count 104 K/uL (130-400); RDW Coefficient of Variation 13.8 % (11.5-14.5); RDW Standard Deviation 49.1 fL (36.4-46.3); Red Blood Count 4.04 M/uL (4.7-6.1); White Blood Count 8.02 K/uL (4.8-10.8)
[2020-10-24 07:33] LABS: Immature Granulocytes # (auto) 0.03 K/uL (0.00-0.02)
[2020-10-24 08:04] LABS: BUN Creatinine Ratio 33.3 (10-20); Calcium 8.9 mg/dl (8.5-10.1); Creatinine Clr Calc Pharmacy 57.3 ml/min; Est GFR (African American) 90.6; Est GFR (Non-African American) 78.2; Potassium 4.4 mmol/L (3.5-5.1)
[2020-10-24] MEDS: PANTOprazole 40 MG TAB PO SCH ×2 (08:40→20:03)
[2020-10-24] MEDS: lisinopril 10 MG TAB PO SCH (08:40)
[2020-10-24] MEDS: guaiFENesin 600 MG TABCR PO SCH ×2 (08:40→20:02)
[2020-10-24] MEDS: METOCLOPRAMIDE HCL 10 MG TABLET PO SCH ×2 (08:40→20:03)
[2020-10-24] MEDS: FLUTICASONE/VILANTEROL 100/25MCG 14 PUFFS/INHALER INH SCH (08:41)
[2020-10-24] MEDS: SIMETHICONE 80 MG CHEW PO PRN ×2 (08:41→14:01)
[2020-10-24] MEDS: INSULIN ASPART 100 UNITS/ML 3 ML PEN SC SCH ×4 (08:45→20:05)
--- NOTE | 2020-10-24 11:01 | Hospitalist Progress Note ---
Date of Service October 24, 2020 Assessment & Plan (1) COPD exacerbation: Cuco Galvan is an 89yo male with a PMH of severe COPD (home oxygen requirement 3L around the clock), HTN, and GERD who presents with 2-3 weeks of progressive SOB with exertion and later at rest, acutely worsening over the last 3-4 days. Patient with no evidence of volume overload. No clear infectious process noted on imaging. COPD exacerbation, chronic respiratory failure -patient has history of frequent COPD exacerbations and reports they feel "just like this" - last COPD exacerbation about one month ago -acute exacerbation of symptoms on 10/24 in the afternoon; suspicious for ACS but unlikely given unremarkable EKG and negative troponin, PE ruled out with CTA, was not fluid overloaded, ABG showed retaining CO2, CXR unremarkable beyond baseline disease -- seems most likely an acute exacerbation of COPD beyond that of this hospital stay, but evaluation ongoing -solumedrol increased from 40mg to 60mg IV tid -fingersticks with ISS while patient is on IV steroids -completed three days of IV azithromycin 500mg -continue budesonide/formoterol -continue duonebs q6h -continue albuterol q2h prn -continue mucinex 1200mg PO bid -supplemental oxygen prn to maintain saturation above 89% -BiPAP as needed Chest pain -reportedly relieved by mylanta and by belching; suspect indigestion or GERD as cause -repeat troponins neg, no EKG evidence of acute ischemia, symptoms not suggestive of ACS; reevaluated during episode on 10/24 and still suggested against ACS -simethicone 80mg PO q6h prn added HTN -contributing factors include underlying HTN, COPD exacerbation, steroids -continue lisinopril 10mg PO qd (home dose 5mg PO qd, likely will need to reduce dose back to home dose upon discharge) Acute kidney injury: resolved -potentially due to poor PO intake; however, has resolved and PO intake is improving GERD: stable -c/w protonix 40mg PO bid -prn mylanta FENGI: heart healthy diet DVT ppx: lovenox 30mg sq qd Code: conditional (DNI, otherwise full code) Dispo: telemetry (2) Chronic respiratory failure: (3) GERD without esophagitis: Admission and Anticipated Discharge Date Admission Date: October 20, 2020 Supervising Physician Co-Signing Physician Notes Patient seen and examined with PGY-1 Dr. Aguirre. Agree with history, exam findings, assessment and plan as outlined. In brief, 89 year old male with history of oxygen dependent COPD (3L baseline), HTN admitted with 2-3 weeks of progressive dyspnea on exertion with chest pain. Initially seen earlier in the day and felt that he was improving, although still very dyspneic and fatigued just walking to the bathroom. Called to the room to re-evaluate patient as his O2 requirement went from 3L NC to 15L with increased work of breathing. On repeat exam, he had very poor air movement with soft end expiratory wheezing, accessory muscle use. Face, neck and arms were red with areas of splotchy erythema. Did not recall any new medications or foods. Did note that his dyspnea started about an hour prior and was accompanied by chest pain that was different from his typical chest pains. Stat ABG, CXR, troponin and EKG ordered. CTA also ordered to rule out PE. Start on BiPAP and given 50mg IV Benadryl. Xopenex ordered as well. 1. COPD exacerbation in the setting of chronic respiratory failure. Completed 3 days of 500mg azithro. Solumedrol increased to 60mg TID, continue budesonide/formeterol, duonebs, albuterol q2h prn, mucinex. Worsened clinical status concerning for worsening COPD vs allergic type reaction. Keep an eye on sugars while he is on steroids. BiPAP as needed. CTA negative for PE. EKG unchanged from prior and troponin negative. ICU aware of patient in the event that he decompensates and requires further intervention overnight form the intensive care team. 2. Chest pain. Improved with bleching and Mylanta. Troponins negative. EKG unremarkable. Continue home protonix 40mg BID, Mylanta. Simethicone 80mg q6h PRN. 3. HTN. Continue Lisinopril 10mg (home dose 5mg) 4. History of liver cirrhosis. Stable, not decompensated. Further work up can be done as an outpatient. 5. Thrombocytopenia. Chronic. Stable. 6. STEPHANIE. Resolved. Dispo: pending clinical improvement. Subjective Patient was seen at bedside this morning. He feels well, about the same as yesterday. Reports mild SOB unchanged from yesterday, and a slight improvement from yesterday. No new complaints. Patient was seen again in the afternoon after I was notified to come to his room. Patient had severe shortness of breath with very increased work of breathing, using accessory muscles and with a very long expiratory phase. His ox ygen was increased to 15L NC. Air movement on physical exam was minimal. Patient's torso, arms, and face were flushed deep red and patient was very anxious. He was not moving enough air to speak. An ABG and portable CXR were obtained. IV benadryl and famotidine were given. Patient was placed on BiPAP with slow but steady improvement in his clinical picture. CTA was performed due to concerns for PE. CXR was unchanged from prior and showed no acute abnormalities beyond his baseline emphysema. CTA was negative for PE. After about one hour, patient had improved dramatically and felt as well as he had this morning. The PE in this note refers to our encounter in the morning. Review of Systems Constitutional: + fatigue; no fever and no chills Respiratory: + cough, + dyspnea and + dyspnea on exertion; no pain on inspiration on 4L NC Physical Exam Constitutional: cooperative; no acute distress Respiratory: + labored breathing, + prolonged expiratory phase, + audible wheezes and symmetric chest movement Auscultation: + diminished lung sounds and + rales Cardiovascular: Rate/Rhythm: regular rate and regular rhythm Heart Sounds: no murmur Neurologic: no focal motor deficits and not confused Psychiatric: A+Ox3, euthymic affect Results & Data Results & Data ([facility]) Vital Signs (Past 12 Hours) Vital Signs Temp Pulse Pulse Resp BP Pulse Ox 10/24/20 07:50 36.4 C L 83 20 159/79 H 97 10/24/20 07:20 77 10/24/20 07:19 62 18 97 10/24/20 03:40 36.4 C L 84 23 160/75 H 97 10/24/20 02:31 84 10/24/20 00:10 85 16 97 10/23/20 23:15 36.5 C 83 22 136/76 99 Resident Activity Tracking Resident Involvement: Resident Care Provided Care Provided: Adult [facility] Medicine
[2020-10-24] MEDS ORDERED: diphenhydrAMINE 50 MG/ML VIAL IV STA (15:11)
[2020-10-24] MEDS ORDERED: diphenhydrAMINE 50 MG/ML VIAL ONE (15:11)
[2020-10-24] MEDS ORDERED: ALBUT/IPRATROP 3MG/0.5MG NEB 3 ML VIAL NEB STA (15:11)
[2020-10-24] MEDS ORDERED: FAMOTIDINE 20 MG in SYRINGE 3 ML IV STA (15:19)
[2020-10-24] MEDS ORDERED: LEVALBUTEROL HCL 1.25 MG/3 ML NEB NEB PRN (15:42)
[2020-10-24 16:00] LABS: Allen Test Pos (Pos); Base Excess ABG 2.7 mEq/L (-9-1.8); HCO3 ABG 29 mmol/L (19-24); Oxygen Saturation ABG 99.8 % (90-95); PCO2 ABG 52 mmHg (35-46); PO2 ABG 285 mmHg (80-95); pH ABG 7.37 (7.35-7.45)
--- NOTE | 2020-10-24 16:03 | XRay Report ---
XR chest 1V portable HISTORY: Shortness of breath. Right-sided chest pain. COMPARISON: Chest 10/20/2020. FINDINGS: No pneumothorax. No pleural effusions. The heart remains mildly enlarged. Severe emphysema with chronic peripheral interstitial thickening is again noted. This is not significantly changed. No new focal lung consolidations to suggest pneumonia. No evidence for pulmonary edema. IMPRESSION: No significant change compared to the prior study. No acute process. Emphysema and chronic interstiti al thickening persists. ACT 112: Negative or not required by law. Electronically signed by: Akhil Ansari M.D. 10/24/2020 4:01 PM
[2020-10-24] MEDS ORDERED: OPTIRAY 320 125ml IV ONE (16:08)
[2020-10-24 16:56] LABS: Partial Thromboplastin Ratio 0.9; Partial Thromboplastin Time 24.4 Seconds (21.0-31.0)
--- NOTE | 2020-10-24 16:58 | CT Scan Report ---
CHEST CTA for PULMONARY ARTERIES CT DOSE: 718.12 mGy.cm HISTORY: Shortness of breath. TECHNIQUE: Multiaxial CT images of the chest were performed following the intravenous administration of contrast to evaluate the pulmonary arteries. Maximal intensity projection images were also obtaine d. A dose lowering technique was utilized adhering to the principles of ALARA. COMPARISON STUDY: Chest CTA 10/20/2020. FINDINGS: Respiratory motion artifact results in nondiagnostic evaluation of the majority of the segm ental and subsegmental pulmonary arteries. Otherwise, the main and lobar pulmonary arteries show no f illing defects to suggest pulmonary embolus. There is no thoracic aortic dissection. No enlarged thor acic lymph nodes are present. The size of the heart is normal. There is moderate coronary artery calc ification. There is no pericardial effusion. No pneumothorax or pleural effusion is noted. Lung hyper expansion is noted with severe emphysema. Subpleural reticulation with cystic change and suspected ho neycombing is similar to prior exam. No superimposed consolidation is noted. The appearance of the ch est is similar to the prior studies. Mild bronchial wall thickening is noted. A few old bilateral rib fractures are noted. The liver is markedly dysmorphic with nodularity liver surface indicative of ci rrhosis. IMPRESSION: 1. No central pulmonary emboli identified. 2. Severe emphysema and superimposed interstitial lung disease, similar to the prior studies. No supe rimposed consolidation. ACT 112: Negative or not required by law. Electronically signed by: Akhil Ansari M.D. 10/24/2020 4:57 PM
--- NOTE | 2020-10-24 18:12 | Electrocardiogram Report ---
Test Reason : Blood Pressure : / mmHG Vent. Rate : 108 BPM Atrial Rate : 108 BPM P-R Int : 142 ms QRS Dur : 120 ms QT Int : 364 ms P-R-T Axes : 077 -82 073 degrees QTc Int : 487 ms Sinus tachycardia Left anterior fascicular block Right bundle branch block Abnormal ECG When compared with ECG of 20-OCT-2020 19:16, No significant change was found Confirmed by Lul Ndiaye ([id number]) on 10/24/2020 6:12:05 PM Referred By: REFERRED SELF Confirmed By:Jonny Ndiaye
[2020-10-24] MEDS: ENOXAPARIN INJ 40 MG/0.4 ML SYR SQ SCH (20:03)
[2020-10-24] MEDS: methylPREDNISolone 60 MG in SYRINGE 0 ML IV SCH (21:50)
[2020-10-25] MEDS: ALBUT/IPRATROP 3MG/0.5MG NEB 3 ML VIAL INH SCH ×4 (00:19→20:10)
[2020-10-25] MEDS: methylPREDNISolone 60 MG in SYRINGE 0 ML IV SCH ×3 (05:44→21:21)
[2020-10-25] MEDS: guaiFENesin 600 MG TABCR PO SCH ×2 (08:35→20:36)
[2020-10-25] MEDS: PANTOprazole 40 MG TAB PO SCH ×2 (08:35→20:37)
[2020-10-25] MEDS: FLUTICASONE/VILANTEROL 100/25MCG 14 PUFFS/INHALER INH SCH (08:36)
[2020-10-25] MEDS: lisinopril 10 MG TAB PO SCH (08:36)
[2020-10-25] MEDS: METOCLOPRAMIDE HCL 10 MG TABLET PO SCH ×2 (08:36→20:37)
[2020-10-25] MEDS: AVODART~ORDER AWAITING ACTION SCH ×2 (08:37→16:57)
--- NOTE | 2020-10-25 08:37 | Hospitalist Progress Note ---
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 Patient with no evidence of volume overload. No clear infectious process noted on imaging. COPD exacerbation, chronic respiratory failure - feels similar to prior exacerbations, last was 1 month ago - acute exacerbation of symptoms on 10/24 PM afternoon suspicious for ACS but normal EKG and negative troponin, PE ruled out with CTA, was not fluid overloaded, ABG showed retaining CO2, CXR unremarkable beyond baseline disease - solumedrol increased from 40mg to 60mg IV tid - completed three days of IV azithromycin 500mg - continue budesonide/formoterol, duonebs q6h, albuterol q2h prn, mucinex 1200mg PO bid - BiPAP as needed - satting upper 90s this AM (10/25/20) on 3L NC - follows Dr. Hines (pul) outpatient - 10/25/20 Attending discussed palliative care w/ patient. He has end-stage COPD w/ poor reserves. Patient and discussed about potentially looking into assisted living in the future. - will need prolonged steroid taper upon d/c. - monitor for worsening of symptoms Chest pain - reportedly relieved by mylanta and by belching; suspect indigestion or GERD as cause - serial troponins neg, no EKG evidence of acute ischemia, symptoms not suggestive of ACS; reevaluated during episode on 10/24 and still suggested against ACS - simethicone 80mg PO q6h prn added 10/24/20 HTN - contributing factors include underlying HTN, COPD exacerbation, steroids - continue lisinopril 10mg PO qd (home dose 5mg PO qd, likely will need to reduce dose back to home dose upon discharge) Acute kidney injury: resolved - potentially due to poor PO intake; however, has resolved and PO intake is improving - CMP tomorrow AM History of liver cirrhosis - stable. f/u as outpatient. Thrombocytopenia - stable GERD - stable - continue protonix 40mg PO bid - prn mylanta FENGI: heart healthy diet DVT ppx: lovenox 30mg sq qd Code: conditional (DNI) Dispo: medsurg tele (2) Chest pain: (3) Hypertension: (4) Chronic respiratory failure: (5) Dependence on supplemental oxygen: (6) Thrombocytopenia: (7) Alcoholic cirrhosis: Admission and Anticipated Discharge Date Admission Date: October 20, 2020 Supervising Physician Co-Signing Physician Notes Patient seen and examined independently of PGY-1 Dr. Guzmán. Agree with history, exam findings, assessment and plan as outlined. In brief, 89 year old male with history of oxygen dependent COPD (3L baseline), HTN admitted with 2-3 weeks of progressive dyspnea on exertion with chest pain. Has not required BiPAP overnight or throughout the day. Still feeling very dysp neic and fatigued from minimal exertion in the room. Denies chest pain. As an outpatient, he follows with Dr. Hines ([facility] pulmonology). Vital signs and nursing notes reviewed. On exam, he is a bit dyspneic at rest, but not no using accessory muscles. Diminished air movement with scattered end expiratory wheezing. Heart rate is regular, tachycardic. Abdomen with good bowel sounds. Soft, non-tender. Labs and imaging reviewed. 1. COPD exacerbation in the setting of chronic respiratory failure. Completed 3 days of 500mg azithro. Solumedrol increased to 60mg TID, continue budesonide/formeterol, duonebs, albuterol q2h prn, mucinex. BiPAP as needed. 2. Hyperglycemia. Steroid induced. Appreciate glycemic consult assistance. 3. Chest pain. Improved with belching and Mylanta. Troponins negative. EKG unremarkable. Continue home protonix 40mg BID, Mylanta. Simethicone 80mg q6h PRN. 4. HTN. Continue Lisinopril 10mg (home dose 5mg) 5. History of liver cirrhosis. Stable, not decompensated. Further work up can be done as an outpatient. 6. Thrombocytopenia. Chronic. Stable. 7. STEPHANIE. Resolved. Dispo: pending clinical improvement. Subjective The patient is feeling better than yesterday evening (breathing issues) Currently, breathing comfortably. He feels the breathing medicines helped. Mild cp and mild sob on exertion. No f/c, hobbs, n/v, blurry vision, abd pian, constip/diarr, urinary sxs. no numb ting. no palpitations. Yesterday afternoon, had exac of sob and felt near syncopal. Had red flushing when primary team examined at bedside. Improved after bipap. Attending PM recheck: patient appears quite SOB, though had just used the restroom. Review of Systems Review of Systems: Constitutional: Denies fever, chills Eyes: Denies blurry vision Cardiovascular: See HPI Respiratory: See HPI Gastrointestinal: Denies abdominal pain, nausea, vomiting, constipation, diarrhea Genitourinary: Denies urinary symptoms including dysuria Musculoskeletal: Denies weakness Neurological: Denies headache, focal weakness Physical Exam Physical Exam: General: Grossly A&O. NAD. Cooperative. HEENT: Atraumatic, normocephalic. Pulm: diffuse exp wheezes. shallow breaths. mild resp distress. Cardiac: RRR, -mrg. Radial pulses intact and symmetrical. no edema. Abdominal: Nontender, nondistended, soft. Results & Data Results & Data ([facility]) Vital Signs (Past 12 Hours) Vital Signs Temp Pulse Pulse Resp BP Pulse Ox 10/25/20 07:45 36.4 C L 81 20 160/76 H 98 10/25/20 07:32 76 10/25/20 07:21 87 18 96 10/25/20 04:00 36.3 C L 74 20 122/64 97 10/25/20 00:19 77 18 94 10/24/20 23:00 36.5 C 81 80 20 135/72 96 Resident Activity Tracking Resident Involvement: Resident Care Provided Care Provided: Adult [facility] (1) Chest pain Chest pain type: unspecified Qualified Code(s): R07.9 - Chest pain, unspecified (2) Hypertension Hypertension type: essential hypertension Qualified Code(s): I10 - Essential (primary) hypertension
[2020-10-25] MEDS: INSULIN ASPART 100 UNITS/ML 3 ML PEN SC SCH ×4 (08:39→20:35)
[2020-10-25] MEDS: SIMETHICONE 80 MG CHEW PO PRN (08:45)
[2020-10-25 12:10] LABS: Hematocrit (blood only) 40.4 % (42-52); Hemoglobin 12.8 g/dL (14.0-18.0); Mean Corpuscular Hemoglobin 31.4 pg (25-34); Mean Corpuscular Hgb Conc 31.7 g/dL (32-36); Mean Corpuscular Volume 99.3 fL (80-100); RDW Coefficient of Variation 13.8 % (11.5-14.5); RDW Standard Deviation 49.5 fL (36.4-46.3); Red Blood Count 4.07 M/uL (4.7-6.1); White Blood Count 7.77 K/uL (4.8-10.8)
[2020-10-25 12:12] LABS: Mean Platelet Volume 11.6 fL (7.4-10.4); Platelet Count 97 K/uL (130-400)
[2020-10-25 12:22] LABS: Calcium 8.8 mg/dl (8.5-10.1); Creatinine Clr Calc Pharmacy 46.8 ml/min; Est GFR (African American) 74.8; Est GFR (Non-African American) 64.6; Potassium 4.5 mmol/L (3.5-5.1)
[2020-10-25 12:36] LABS: Immature Granulocytes # (auto) 0.12 K/uL (0.00-0.02); Immature Granulocytes % (auto) 1.5 %; Lymphocytes # (auto) 0.41 K/uL (1.2-3.4); Lymphocytes % (auto) 5.3 %; Monocytes # (auto) 0.42 K/uL (0.11-0.59); Monocytes % (auto) 5.4 %; Neutrophils # (auto) 6.82 K/uL (1.4-6.5); Neutrophils % (auto) 87.8 %
[2020-10-25] MEDS: ENOXAPARIN INJ 40 MG/0.4 ML SYR SQ SCH (20:37)
[2020-10-25] MEDS: ALUMINUM/MAGNESIUM/SIMETH (MAALOX MAX) 30 ML UDC PO PRN (23:53)
[2020-10-26] MEDS: ALBUT/IPRATROP 3MG/0.5MG NEB 3 ML VIAL INH SCH ×6 (00:19→22:36)
[2020-10-26] MEDS: AVODART~ORDER AWAITING ACTION SCH ×4 (01:28→23:10)
[2020-10-26] MEDS: methylPREDNISolone 60 MG in SYRINGE 0 ML IV SCH ×3 (05:16→21:39)
[2020-10-26 06:57] LABS: Hematocrit (blood only) 38.8 % (42-52); Hemoglobin 12.9 g/dL (14.0-18.0); Mean Corpuscular Hemoglobin 32.3 pg (25-34); Mean Corpuscular Hgb Conc 33.2 g/dL (32-36); Mean Corpuscular Volume 97.2 fL (80-100); RDW Coefficient of Variation 13.7 % (11.5-14.5); RDW Standard Deviation 48.9 fL (36.4-46.3); Red Blood Count 3.99 M/uL (4.7-6.1); White Blood Count 8.15 K/uL (4.8-10.8)
[2020-10-26 07:07] LABS: Mean Platelet Volume 11.5 fL (7.4-10.4); Platelet Count 90 K/uL (130-400)
[2020-10-26 07:08] LABS: INR 1.1 (0.9-1.1); Prothrombin Time 11.4 Seconds (9.0-12.0)
[2020-10-26 07:31] LABS: Albumin Level 3.4 gm/dl (3.4-5.0); BUN Creatinine Ratio 32.4 (10-20); Calcium 9.4 mg/dl (8.5-10.1); Est GFR (African American) 88.9; Est GFR (Non-African American) 76.7; Potassium 4.2 mmol/L (3.5-5.1)
[2020-10-26 07:33] LABS: Immature Granulocytes # (auto) 0.03 K/uL (0.00-0.02); Immature Granulocytes % (auto) 0.4 %; Lymphocytes % (auto) 3.7 %; Monocytes # (auto) 0.58 K/uL (0.11-0.59); Monocytes % (auto) 7.1 %; Neutrophils # (auto) 7.24 K/uL (1.4-6.5); Neutrophils % (auto) 88.8 %
[2020-10-26 07:34] LABS: Bilirubin,Total 0.6 mg/dl (0.2-1); Globulin 3.4 gm/dl (2.5-4.0); Total Protein 6.8 gm/dl (6.4-8.2)
--- NOTE | 2020-10-26 07:47 | Hospitalist Progress Note ---
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 Patient with no evidence of volume overload. No clear infectious process noted on imaging. Labored breathing upon any activity or movement. COPD exacerbation, chronic respiratory failure - feels similar to prior exacerbations, last was 1 month ago - acute exacerbation of symptoms on 10/24 PM afternoon suspicious for ACS but normal EKG and negative troponin, PE ruled out with CTA, was not fluid overloade d, ABG showed retaining CO2, CXR unremarkable beyond baseline disease - solumedrol increased from 40mg to 60mg IV tid - completed three days of IV azithromycin 500mg - continue budesonide/formoterol, duonebs q6h, albuterol q2h prn, mucinex 1200mg PO bid. 10/26/20 duoneb freq increased. added Mucomyst. - BiPAP as needed - satting upper 90s this AM (10/25/20) on 3L NC - follows Dr. Hines (pulm) outpatient - 10/25/20 Attending discussed palliative care w/ patient. He has end-stage COPD w/ poor reserves. Patient and discussed about potentially looking into assisted living in the future. - will need prolonged steroid taper upon d/c. - monitor for worsening of symptoms - continue IV steroids. - continue palliative discussion. will place palliative consult. - consider abx for copd exacerbation. pt also noticed yellow sputum today Chest pain - reportedly relieved by mylanta and by belching; suspect indigestion or GERD as cause - serial troponins neg, no EKG evidence of acute ischemia, symptoms not suggestive of ACS; reevaluated during episode on 10/24 and still suggested against ACS - simethicone 80mg PO q6h prn added 10/24/20 HTN - contributing factors include underlying HTN, COPD exacerbation, steroids - continue lisinopril 10mg PO qd (home dose 5mg PO qd, likely will need to reduce dose back to home dose upon discharge) Acute kidney injury: resolved - potentially due to poor PO intake; however, has resolved and PO intake is improving - CMP tomorrow AM History of liver cirrhosis - stable. f/u as outpatient. Thrombocytopenia - stable GERD - stable - continue protonix 40mg PO bid - prn mylanta FENGI: heart healthy diet DVT ppx: lovenox 30mg sq qd Code: conditional (DNI) Dispo: medsurg tele (2) Chest pain: (3) Hypertension: (4) Chronic respiratory failure: (5) Dependence on supplemental oxygen: (6) Thrombocytopenia: (7) Alcoholic cirrhosis: Admission and Anticipated Discharge Date Admission Date: October 20, 2020 Supervising Physician Co-Signing Physician Notes Patient seen and examined independently of PGY-1 Dr. Guzmán. Agree with history, exam findings, assessment and plan as outlined. In brief, 89 year old male with history of oxygen dependent COPD (3L baseline), HTN admitted with 2-3 weeks of progressive dyspnea on exertion with chest pain. Has not required BiPAP but still feeling dyspneic and fatigued with minimal exertion. Denies chest pain today. He is brining up mucus. Some of the mucus is yellowish then became clear this afternoon. Feels that the mucus is thick and hard to bring up despite using mucinex and the flutter valve. Vital signs and nursing notes reviewed. On exam, he is a bit dyspneic at rest, but not using accessory muscles. Diminished air movement with scattered end expiratory wheezing. Fair air movement throughout. Heart rate is regular. Abdomen with good bowel sounds. Soft, non-tender. Labs and imaging reviewed. 1. COPD exacerbation in the setting of chronic respiratory failure. As an outpatient, follows with Dr. Hines. Completed 3 days of 500mg azithro. Solumedrol increased to 60mg TID, continue budesonide/formeterol, albuterol q2h prn, mucinex. Increased frequency of duonebs to q4h scheduled and added mucomyst. Patient will let us know if he does not want to continue with mucomyst or it is minimally helpful and we can discontinue it. BiPAP as needed. 2. Hyperglycemia. Steroid induced. Appreciate glycemic consult assistance. 3. Chest pain. Improved with belching and Mylanta. Troponins negative. EKG unremarkable. Continue home protonix 40mg BID, Mylanta. Simethicone 80mg q6h PRN. 4. HTN. Continue Lisinopril 10mg (home dose 5mg) 5. History of liver cirrhosis. Stable, not decompensated. Further work up can be done as an outpatient. 6. Thrombocytopenia. Chronic. Stable. Dispo: pending clinical improvement. Patient is aware that he has poor pulmonary reserve. He and his have discussed moving to assisted living or other more supervised setting as he is not sure they can adequately care for themselves as they age. He is open to visiting with palliative care to discuss goals of care. Subjective States feels slightly better than he did yesterday after noon (exacerbated vs yesterday AM). Mild chest tightness across chest, intensity about same as yesterday. Mouth breathing using nasal cannula. Denies other symptoms. NC reading 2.5L, will turn back up to 3L. PM update still labored breathing after Mucomyst and increased neb frequency. Complaining of heartburn and nurse is administering Maalox. Review of Systems Review of Systems: Constitutional: Denies fever, chills Eyes: Denies blurry vision, vision changes ENT: Denies sore throat, nasal congestion Cardiovascular: Denies chest pain, palpitations Respiratory: Feels a little bit SOB. cough w/ small amount of yellow mucus, otherwise clear sputum Gastrointestinal: Denies abdominal pain, nausea, vomiting, constipation, diarrhea Genitourinary: Denies urinary symptoms including dysuria Musculoskeletal: Denies weakness, muscle aches/pain, joint aches/pain Neurological: Denies headache, numbness, tingling, focal weakness Physical Exam Physical Exam: General: Grossly A&O. NAD. Cooperative. HEENT: Atraumatic, normocephalic. EOMI Pulm: Faint diffuse exp wheezes. Mild accessory muscle use. Breathing throough nasal cannula w/ mouth. Speech appears short/shallow. On PM recheck: breathing appears quite labored. Using accessory muscles. Cardiac: RRR, -mrg. Radial pulses intact and symmetrical. no edema Abdominal: Nontender, nondistended, soft. Results & Data Results & Data ([facility]) Vital Signs (Past 12 Hours) Vital Signs Temp Pulse Pulse Resp BP BP Pulse Ox 10/26/20 07:18 89 16 95 10/26/20 04:00 36.4 C L 90 20 149/74 H 98 10/26/20 00:19 86 20 97 10/26/20 00:00 36.5 C 88 97 H 20 160/78 H 93 10/25/20 20:11 97 H 22 96 Resident Activity Tracking Resident Involvement: Resident Care Provided Care Provided: Adult Hospital Medicine (1) Chest pain Chest pain type: unspecified Qualified Code(s): R07.9 - Chest pain, unspecified (2) Hypertension Hypertension type: essential hypertension Qualified Code(s): I10 - Essential (primary) hypertension
[2020-10-26] MEDS: FLUTICASONE/VILANTEROL 100/25MCG 14 PUFFS/INHALER INH SCH (08:22)
[2020-10-26] MEDS: guaiFENesin 600 MG TABCR PO SCH ×2 (08:22→21:38)
[2020-10-26] MEDS: PANTOprazole 40 MG TAB PO SCH ×2 (08:23→21:39)
[2020-10-26] MEDS: lisinopril 10 MG TAB PO SCH (08:23)
[2020-10-26] MEDS: METOCLOPRAMIDE HCL 10 MG TABLET PO SCH ×2 (08:23→21:38)
[2020-10-26] MEDS: INSULIN ASPART 100 UNITS/ML 3 ML PEN SC SCH ×4 (08:23→21:39)
[2020-10-26] MEDS: ALUMINUM/MAGNESIUM/SIMETH (MAALOX MAX) 30 ML UDC PO PRN ×2 (12:04→18:03)
[2020-10-26] MEDS: ACETYLCYSTEINE 10% INHAL SOLN 4 ML **DISPENSED BY RESP. INH SCH ×3 (16:00→22:36)
[2020-10-26] MEDS ORDERED: PIPERACILL/TAZOBAC CONSULT ACTIVE PRN (19:28)
[2020-10-26] MEDS ORDERED: PIPERACILLIN/TAZOBACTAM 3.375 GM in DEXTROSE 5% 100 ML IV ONE (19:45)
[2020-10-26] MEDS: ENOXAPARIN INJ 40 MG/0.4 ML SYR SQ SCH (21:39)
[2020-10-27] MEDS: PIPERACILLIN/TAZOBACTAM 3.375 GM in DEXTROSE 5% 100 ML IV SCH ×2 (02:15→09:47)
[2020-10-27] MEDS: ACETYLCYSTEINE 10% INHAL SOLN 4 ML **DISPENSED BY RESP. INH SCH ×3 (03:26→19:59)
[2020-10-27] MEDS: ALBUT/IPRATROP 3MG/0.5MG NEB 3 ML VIAL INH SCH ×6 (03:26→22:34)
[2020-10-27] MEDS: methylPREDNISolone 60 MG in SYRINGE 0 ML IV SCH ×3 (06:06→23:33)
[2020-10-27 07:17] LABS: Hematocrit (blood only) 38.1 % (42-52); Hemoglobin 12.6 g/dL (14.0-18.0); Mean Corpuscular Hemoglobin 31.8 pg (25-34); Mean Corpuscular Hgb Conc 33.1 g/dL (32-36); Mean Corpuscular Volume 96.2 fL (80-100); Mean Platelet Volume 12.1 fL (7.4-10.4); Platelet Count 88 K/uL (130-400); RDW Coefficient of Variation 13.6 % (11.5-14.5); RDW Standard Deviation 47.9 fL (36.4-46.3); Red Blood Count 3.96 M/uL (4.7-6.1); White Blood Count 10.78 K/uL (4.8-10.8)
[2020-10-27 07:38] LABS: Immature Granulocytes # (auto) 0.05 K/uL (0.00-0.02); Immature Granulocytes % (auto) 0.5 %; Lymphocytes # (auto) 0.32 K/uL (1.2-3.4); Monocytes # (auto) 0.72 K/uL (0.11-0.59); Monocytes % (auto) 6.7 %; Neutrophils # (auto) 9.69 K/uL (1.4-6.5); Neutrophils % (auto) 89.8 %
[2020-10-27 07:44] LABS: BUN Creatinine Ratio 33.7 (10-20); Creatinine Clr Calc Pharmacy 59.7 ml/min; Est GFR (Non-African American) 79.4; Potassium 4.4 mmol/L (3.5-5.1)
[2020-10-27] MEDS: guaiFENesin 600 MG TABCR PO SCH ×2 (08:36→20:36)
[2020-10-27] MEDS: AVODART~ORDER AWAITING ACTION SCH ×3 (08:37→23:33)
[2020-10-27] MEDS: lisinopril 10 MG TAB PO SCH (08:37)
[2020-10-27] MEDS: PANTOprazole 40 MG TAB PO SCH ×2 (08:37→20:37)
[2020-10-27] MEDS: FLUTICASONE/VILANTEROL 100/25MCG 14 PUFFS/INHALER INH SCH (08:37)
[2020-10-27] MEDS: METOCLOPRAMIDE HCL 10 MG TABLET PO SCH ×2 (08:37→20:37)
[2020-10-27] MEDS: INSULIN ASPART 100 UNITS/ML 3 ML PEN SC SCH ×4 (08:38→20:36)
[2020-10-27] MEDS: ALUMINUM/MAGNESIUM/SIMETH (MAALOX MAX) 30 ML UDC PO PRN ×2 (09:00→15:31)
--- NOTE | 2020-10-27 10:03 | Hospitalist Progress Note ---
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 Patient with no evidence of volume overload. No clear infectious process noted on imaging. Labored breathing upon any activity or movement. COPD exacerbation, chronic respiratory failure - feels similar to prior exacerbations, last was 1 month ago - acute exacerbation of symptoms on 10/24 PM afternoon suspicious for ACS but normal EKG and negative troponin, PE ruled out with CTA, was not fluid overloade d, ABG showed retaining CO2, CXR unremarkable beyond baseline disease - completed three days of IV azithromycin 500mg - follows Dr. Hines (pulmonary) outpatient - 10/25/20 Attending discussed palliative care w/ patient. He has end-stage COPD w/ poor reserves. Patient and discussed about potentially looking into assisted living in the future. - palliative care consult placed; appreciate recommendation - discontinuing IV zosyn after repeat procal was 0.05 today (10/27) - mucomist changed from q4h to q12h - c/w albuterol inhaler q4h, nebs q2h prn - c/w fluticasone/vilanterol 1puff daily - c/w mucinex 1200mg PO bid - c/w levalbuterol neb q2h prn - c/w solumedrol 60mg IV q8h; will need prolonged steroid taper before returning to home dose prednisone - BiPAP as needed; ordered 1 hour of BiPAP after patient was examined this morning Chest pain - reportedly relieved by mylanta and by belching; suspect indigestion or GERD as cause - serial troponins neg, no EKG evidence of acute ischemia, symptoms not suggestive of ACS; reevaluated during episode on 10/24 and still suggested against ACS - simethicone 80mg PO q6h prn added 10/24/20 HTN - contributing factors include underlying HTN, COPD exacerbation, steroids - continue lisinopril 10mg PO qd (home dose 5mg PO qd, likely will need to reduce dose back to home dose upon discharge) Acute kidney injury: resolved - potentially due to poor PO intake; however, has resolved and PO intake is improving - CMP tomorrow AM History of liver cirrhosis - stable. f/u as outpatient. Thrombocytopenia - stable GERD - stable - continue protonix 40mg PO bid - prn toby HUA: heart healthy diet DVT ppx: lovenox 30mg sq qd Code: conditional (DNI) [facility] (2) Chest pain: (3) Hypertension: (4) Chronic respiratory failure: (5) Dependence on supplemental oxygen: (6) Thrombocytopenia: (7) Alcoholic cirrhosis: Admission and Anticipated Discharge Date Admission Date: October 20, 2020 Supervising Physician Co-Signing Physician Notes I personally examined the patient and verified all joaquin points of history and exam, discussed case, and agree with decision making with Dr Aguirre feeling better than tuesday but still not back to baseline. did get up and do a little activity w therapy - notes was very fatiguing but was able to complete it. sob. feels like something rattling in his chest he can't quite bring up vitals noted nad heent nc at mmm lungs markedly diminished throughout no r/r/w good effort no accessory muscles mild converstational dyspnea skin no rashes no pallor or icterus acute on chronic mixed hypoxic and hypercapnic respiratory failure related to COPD exacerbation -continue steroids -continue nebs -continue supportive care -bipap HS and prn // ask case management to eval for ?bipap or noninvasive ventilator for home -repeat CXR and procal - not clear if zosyn providing benefit otherwise as above Subjective Patient was seen at bedside this morning. He reports feeling "decent" but reports his SOB is a little worse than it was yesterday after receiving BiPAP. I asked if he felt like he would benefit from some more BiPAP to which he replied "maybe an hour of it". Patient reports his chest pain has improved. Denied new symptoms including lightheadedness, dizziness, nausea, vomiting, or other symptoms. Review of Systems Review of Systems: Constitutional: Denies fever, chills Eyes: Denies blurry vision, vision changes ENT: Denies sore throat, nasal congestion Cardiovascular: Denies chest pain, palpitations Respiratory: Feels a little bit SOB. cough w/ small amount of yellow mucus, otherwise clear sputum Gastrointestinal: Denies abdominal pain, nausea, vomiting, constipation, diarrhea Genitourinary: Denies urinary symptoms including dysuria Musculoskeletal: Denies weakness, muscle aches/pain, joint aches/pain Neurological: Denies headache, numbness, tingling, focal weakness Constitutional: + fatigue; no fever and no chills Respiratory: + cough, + dyspnea and + dyspnea on exertion; no pain on inspiration Physical Exam Constitutional: cooperative; no acute distress Respiratory: + prolonged expiratory phase; no respiratory distress Auscultation: + diminished lung sounds expiratory wheezes, rales heard in right middle and lower lobes, no crackles Cardiovascular: RRR, no murmur, no edema Psychiatric: A+Ox3, euthymic affect Results & Data Results & Data ([facility]) Vital Signs (Past 12 Hours) Vital Signs Temp Pulse Pulse Resp BP BP Pulse Ox 10/27/20 08:51 96 H 17 96 10/27/20 07:46 36.8 C 97 H 22 150/76 H 98 10/27/20 07:23 86 18 98 10/27/20 03:26 91 H 22 97 10/27/20 03:00 36.5 C 100 H 22 159/80 H 96 10/26/20 22:58 93 H 10/26/20 22:38 91 H 20 98 10/26/20 22:33 36.5 C 96 H 20 119/72 96 Resident Activity Tracking Resident Involvement: Resident Care Provided Care Provided: Adult Hospital Medicine (1) Chest pain Chest pain type: unspecified Qualified Code(s): R07.9 - Chest pain, unspecified (2) Hypertension Hypertension type: essential hypertension Qualified Code(s): I10 - Essential (primary) hypertension
--- NOTE | 2020-10-27 16:41 | XRay Report ---
XR chest 1V portable HISTORY: Shortness of breath. COMPARISON: Chest 10/24/2020. FINDINGS: No pneumothorax. No pleural effusions. The heart remains mildly enlarged. The lungs are hyp erexpanded with apical predominant emphysematous changes. Chronic interstitial thickening persists. N o new focal lung consolidations to suggest pneumonia. No evidence for pulmonary edema. IMPRESSION: 1. No significant change compared to the prior studies. 2. Severe emphysema. 3. Peripheral interstitial thickening is again noted. This is likely chronic. However, superimposed i nfectious process would be difficult to exclude. ACT 112: Negative or not required by law. Electronically signed by: Akhil Ansari M.D. 10/27/2020 4:39 PM
--- NOTE | 2020-10-27 16:55 | Billing Data ---
Date of Service October 27, 2020 Coding Level of Care Code 93899 Subseq Hosp Care Lvl 3
[2020-10-27] MEDS: ENOXAPARIN INJ 40 MG/0.4 ML SYR SQ SCH (20:49)
[2020-10-28] MEDS: ALBUT/IPRATROP 3MG/0.5MG NEB 3 ML VIAL INH SCH ×8 (03:16→23:13)
[2020-10-28] MEDS: methylPREDNISolone 60 MG in SYRINGE 0 ML IV SCH ×2 (06:10→14:48)
[2020-10-28] MEDS: ACETYLCYSTEINE 10% INHAL SOLN 4 ML **DISPENSED BY RESP. INH SCH (07:16)
[2020-10-28 07:24] LABS: Hematocrit (blood only) 41.5 % (42-52); Hemoglobin 13.3 g/dL (14.0-18.0); Mean Corpuscular Hemoglobin 31.4 pg (25-34); Mean Corpuscular Volume 97.9 fL (80-100); Mean Platelet Volume 11.3 fL (7.4-10.4); Platelet Count 85 K/uL (130-400); RDW Coefficient of Variation 13.5 % (11.5-14.5); RDW Standard Deviation 48.4 fL (36.4-46.3); Red Blood Count 4.24 M/uL (4.7-6.1); White Blood Count 11.63 K/uL (4.8-10.8)
[2020-10-28 07:45] LABS: Immature Granulocytes # (auto) 0.09 K/uL (0.00-0.02); Immature Granulocytes % (auto) 0.8 %; Lymphocytes # (auto) 0.35 K/uL (1.2-3.4); Monocytes # (auto) 0.68 K/uL (0.11-0.59); Monocytes % (auto) 5.8 %; Neutrophils # (auto) 10.51 K/uL (1.4-6.5); Neutrophils % (auto) 90.4 %
[2020-10-28 07:56] LABS: BUN Creatinine Ratio 30.6 (10-20); Calcium 9.3 mg/dl (8.5-10.1); Creatinine Clr Calc Pharmacy 52.6 ml/min; Est GFR (African American) 85.8; Potassium 4.7 mmol/L (3.5-5.1)
--- NOTE | 2020-10-28 08:13 | Hospitalist Progress Note ---
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 Patient with no evidence of volume overload. No clear infectious process noted on imaging. Labored breathing upon any activity or movement. COPD exacerbation, chronic respiratory failure - feels similar to prior exacerbations, last was 1 month ago - acute exacerbation of symptoms on 10/24 PM afternoon suspicious for ACS but normal EKG and negative troponin, PE ruled out with CTA, was not fluid overloade d, ABG showed retaining CO2, CXR unremarkable beyond baseline disease - completed three days of IV azithromycin 500mg - follows Dr. Hines (pulmonary) outpatient - 10/25/20 Attending discussed palliative care w/ patient. He has end-stage COPD w/ poor reserves. Patient and discussed about potentially looking into assisted living in the future. - palliative care consult placed; appreciate recommendation - discontinuing IV zosyn after repeat procal was 0.05 today (10/27) - discontinued mucomyst - c/w albuterol inhaler q4h - duonebs changed from q2h prn to q2h scheduled - c/w fluticasone/vilanterol 1puff daily - c/w mucinex 1200mg PO bid - c/w levalbuterol neb q2h prn - increased solumedrol from 60mg tid to 80mg IV tid - added azithromycin 250mg PO qd - BiPAP as needed Chest pain - reportedly relieved by mylanta and by belching; suspect indigestion or GERD as cause - serial troponins neg, no EKG evidence of acute ischemia, symptoms not suggestive of ACS; reevaluated during episode on 10/24 and still suggested against ACS - simethicone 80mg PO q6h prn added 10/24/20 - increased mylanta to q6h prn HTN - contributing factors include underlying HTN, COPD exacerbation, steroids - continue lisinopril 10mg PO qd (home dose 5mg PO qd, likely will need to reduce dose back to home dose upon discharge) Acute kidney injury: resolved - potentially due to poor PO intake; however, has resolved and PO intake is improving - CMP tomorrow AM History of liver cirrhosis - stable. f/u as outpatient. Thrombocytopenia - stable GERD - stable - continue protonix 40mg PO bid - mylanta as above FENGI: heart healthy diet DVT ppx: lovenox 30mg sq qd (continued despite platelet count under 100, as PE would be far more severe than a bleed) Code: conditional (DNI) Dispo: medsurg tele (2) Chest pain: (3) Hypertension: (4) Chronic respiratory failure: (5) Dependence on supplemental oxygen: (6) Thrombocytopenia: (7) Alcoholic cirrhosis: Admission and Anticipated Discharge Date Admission Date: October 20, 2020 Supervising Physician Co-Signing Physician Notes I personally examined the patient and verified all joaquin points of history and exam, discussed case, and agree with decision making with Dr Aguirre feeling worse pretty much all day. bipap does help but mask is painful at times. dypsnea even with a short conversation on phone. vitals noted nad heent nc at mmm lungs markedly diminished throughout no r/r/w good effort belly breathing and some intercostal breathing. acute on chronic mixed hypoxic and hypercapnic respiratory failure related to COPD exacerbation -continue steroids (increase further) -continue nebs (q4hr scheduled round the clock) -resume zithromax for pulmonary anti-inflammatory effect -continue supportive care (encouraged bipap as much as possible) -upright as best as possible/as much as he can tolerate -palliative input appreciated otherwise as above Subjective I was paged by the patient's care team around 7:45am today. Apparently his supplemental oxygen had become disconnected at some point during the night, and patient's oxygen saturation had fallen to the low 80's. Patient had been placed on BiPAP before I arrived to the room. Patient had significantly increased work of breathing, was hypertensive to the 180s/80s, tachycardic to the 150s, and appeared very anxious. He had good air movement in his lungs with only mild expiratory wheezes in the lower right lobe. Within 15 minutes, patient's heart rate had fallen to the 110s and appeared to be improving substantially on BiPAP alone. Review of Systems Constitutional: + fatigue; no fever and no chills Cardiovascular: no palpitations and no lightheadedness Gastrointestinal: no nausea and no vomiting Genitourinary: no dysuria Physical Exam Constitutional: cooperative; no altered mental status Respiratory: on BiPAP, expiratory wheezes heard in right lower field, good air movement Cardiovascular: RRR, no murmur, no edema Psychiatric: Orientation: alert Results & Data Results & Data ([facility]) Vital Signs (Past 12 Hours) Vital Signs Temp Pulse Pulse Resp BP BP Pulse Ox 10/28/20 07:41 36.5 C 108 H 20 182/86 H 98 10/28/20 07:16 80 19 97 10/28/20 03:17 75 16 98 10/28/20 03:00 36.8 C 81 20 129/86 96 10/28/20 00:31 94 10/28/20 00:29 83 10/27/20 22:37 68 16 98 10/27/20 22:35 68 16 98 10/27/20 21:57 36.7 C 81 20 132/71 94 (1) Chest pain Chest pain type: unspecified Qualified Code(s): R07.9 - Chest pain, unspecified (2) Hypertension Hypertension type: essential hypertension Qualified Code(s): I10 - Essential (primary) hypertension
[2020-10-28] MEDS: FLUTICASONE/VILANTEROL 100/25MCG 14 PUFFS/INHALER INH SCH (08:58)
[2020-10-28] MEDS: PANTOprazole 40 MG TAB PO SCH ×2 (08:58→21:15)
[2020-10-28] MEDS: lisinopril 10 MG TAB PO SCH (08:58)
[2020-10-28] MEDS: AVODART~ORDER AWAITING ACTION SCH ×3 (08:58→23:13)
[2020-10-28] MEDS: METOCLOPRAMIDE HCL 10 MG TABLET PO SCH ×2 (08:58→21:16)
[2020-10-28] MEDS: guaiFENesin 600 MG TABCR PO SCH ×2 (08:58→21:14)
[2020-10-28] MEDS: INSULIN ASPART 100 UNITS/ML 3 ML PEN SC SCH ×4 (08:59→21:14)
[2020-10-28] MEDS: SIMETHICONE 80 MG CHEW PO PRN (10:43)
--- NOTE | 2020-10-28 13:18 | Palliative Care Consultation ---
Date of Consultation October 28, 2020 Assessment & Plan (1) Dyspnea: At rest with advanced COPD. Would likely benefit from low dose opioid to relieve air hunger. He does have some relief while on bipap. (2) COPD exacerbation: (3) Chronic respiratory failure: (4) Palliative care encounter: He has been followed by palliative care through [facility]. Last note from visit on 10/15 indicates that they discussed goals of care. He expressed desire to be DNR/DNI which is consistent with what he is telling me today. He has wanted to return to hospital when he has difficulty breathing which arises mostly from fear and anxiety in the acute situation. He understands that his condition is worsening and that his prognosis is poor. He has said that he would want to be at home for his which he also confirms with me. I asked him if there would be a time when he would prefer to remain at home and focus on comfort and he answered "Yes and I think we are about there". He is familiar with hospice. He is concerned about his being able to care for him at home and would want support at home. When I discussed hospice being able to relieve his symptoms of air hunger and anxiety at home he mentioned that he would prefer to do that and at home. I attempted to call his to discuss this but was unable to reach her. Will change code status DNR/DNI to reflect our conversation today which is consistent with what he discussed with palliative care provider at home about two weeks ago. History of Present Illness Reason for Consultation: Goals of Care Requesting Physician: Dr. Guzmán Attending Physician: Hamilton Landry DO History of Present Illness 89 yo gentleman with advanced COPD who was admitted with dyspnea that has been progressive over the last few weeks. He is O2 dependent at home at baseline and has been followed by palliative care with [facility]. He was seen by their provider on October 15, 2020. He is very short of breath at rest and has difficulty with conversation. He has poor po intake with dyspnea while eating. He has been using bipap intermittently since admission with antibiotic and IV steroid treatments. We have been consulted to assist with goals of care. Allergies Allergy/AdvReac Type Severity Reaction Status Date / Time No Known Allergies Allergy Verified 10/20/20 20:08 Home Medications Medication Instructions Recorded Confirmed Type lactobacillus combination no.4 3,000 cell PO DAILY #7 cap 02/14/19 10/20/20 Rx [Probiotic] lisinopril 10 mg tablet 5 mg PO DAILY #45 tab 05/21/19 10/20/20 Rx dcwazdol-oht-rpxnr acid 300 1 tab PO DAILY 05/21/19 10/20/20 History mcg-lycopene 600 mcg-lutein 300 mcg tablet metoclopramide HCl 10 mg tablet 10 mg PO BID #60 tab 04/08/20 10/20/20 Rx pantoprazole 40 mg tablet,delayed 40 mg PO BID #60 tab 04/08/20 10/20/20 Rx release dutasteride 0.5 mg capsule 0.5 mg PO DAILY #90 cap 05/09/20 10/20/20 Rx budesonide-formoterol HFA 160 2 puff INHALATION BID #3 inhaler 07/14/20 10/20/20 Rx mcg-4.5 mcg/actuation aerosol inhaler ipratropium 0.5 mg-albuterol 3 mg 3 ml INHALATION Q6H PRN #360 ml 07/14/20 10/20/20 Rx (2.5 mg base)/3 mL nebulization soln prednisone 10 mg tablet 10 mg PO .COMPLEX #40 tab 07/14/20 10/20/20 Rx acetaminophen [Tylenol Arthritis] 1,300 mg PO Q12H PRN 10/20/20 10/20/20 History Patient History Medical History Alcoholic cirrhosis Anemia Benign localized prostatic 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) Followed by Urology Chronic obstructive pulmonary disease Chronic respiratory failure Dependence on supplemental oxygen Dyslipidemia Gastroparesis GERD without esophagitis Hypertension Impaired fasting glucose Incomplete bladder emptying Myocardial infarction Peptic ulcer disease Pneumonia Pulmonary nodule CT monitoring completed 08/2020 no additonal tests Thrombocytopenia Surgical History Hx of appendectomy Hx of cataract surgery Hx of total knee arthroplasty Family History Father Diabetes Mother Diabetes High blood sugar Thyroid disease Stroke Sister Diabetes Brother Diabetes Cancer Stroke Colorectal cancer Other BPH loc w/o ur obs/LUTS Denies family history of Ovarian cancer Prostate cancer Crohn's disease Myocardial infarction Breast cancer Inflammatory bowel disease Social History Smoking Status: Former smoker Tobacco Type: Cigarettes, Pipe and Cigars Age Started Using Tobacco: 22; Age Quit Using Tobacco: 74; Cigarettes Per Day: 3 packs daily; Second Hand Exposure: No; Hx Alcohol Use: No Hx Substance Use: No Preferred Language: Sami Communication Ability: Effective Visual Impairment: Limited Hearing Ability: Normal Medical Office Supervisor Required: No Beliefs That Will Affect Care: None marital status: Current Living Situation: Spouse current occupational status: retired How many Children do You have: 0 Feels Safe at Home: Yes Childhood Exposure to Second-Hand Smoke: No caffeine: Yes (tea and coffee occassionally ) Dental Care, Regularly: No Physical Activity Frequency: Does not Exercise Seatbelt Use: always Sunscreen Use: No Assistive Devices: Oxygen - Continuous Review of Systems Review of Systems: [place] Symptom Assessment Scale Pain 0/3 Dyspnea 3/3 Nausea 0/3 Anorexia 2/3 Anxiety 1/3 Depression 0/3 Drowsiness 0/3 Palliative Performance Score 40% Physical Exam Constitutional: + ill appearing; + uncomfortable Respiratory: + labored breathing and + uses accessory muscles Gastrointestinal (Abdomen): Percussion/Palpation: abdomen nontender Neurologic: moves all extremities Psychiatric: Orientation: alert and oriented x 3 Results & Data ([facility]) Vital Signs (Past 12 Hours) Vital Signs Temp Pulse Resp BP BP Pulse Ox 10/28/20 11:55 97.3 F L 101 H 16 134/71 97 10/28/20 10:46 88 16 98 10/28/20 08:10 119 H 28 H 123/78 94 10/28/20 07:50 156 H 32 H 91 10/28/20 07:41 97.7 F 108 H 20 182/86 H 98 10/28/20 07:16 80 19 97 10/28/20 03:17 75 16 98 10/28/20 03:00 98.2 F 81 20 129/86 96 PG Care Time/CCT Total # of Minutes Spent Total Time Spent with Patient: Total time spent is greater than 50% in coordination of care (as documented) at patient's floor/unit and/or counseling patient: total time spent 55 minutes with more than 50% of time spent on discussing goals of care, hospice, symptom management, code status and coordination of care. Coding Level of Care Code 28349 Inpt Consult Level 3 Diagnoses Dyspnea R06.00 COPD exacerbation J44.1 Chronic respiratory failure J96.10 Palliative care encounter Z51.5
[2020-10-28] MEDS: ALUMINUM/MAGNESIUM/SIMETH (MAALOX MAX) 30 ML UDC PO PRN (14:55)
--- NOTE | 2020-10-28 17:07 | Billing Data ---
Date of Service October 28, 2020 Coding Level of Care Code 90395 Subseq Hosp Care Lvl 3
[2020-10-28] MEDS: AZITHROMYCIN 250 MG TAB PO SCH (17:13)
[2020-10-28] MEDS: ENOXAPARIN INJ 40 MG/0.4 ML SYR SQ SCH (21:14)
[2020-10-28] MEDS: methylPREDNISolone 80 MG in SYRINGE 0 ML IV SCH (21:15)
[2020-10-29] MEDS: ALBUT/IPRATROP 3MG/0.5MG NEB 3 ML VIAL INH SCH ×10 (02:15→23:36)
[2020-10-29] MEDS: methylPREDNISolone 80 MG in SYRINGE 0 ML IV SCH ×3 (05:10→21:00)
[2020-10-29 06:28] LABS: Basophils # (auto) 0.01 K/uL (0-0.2); Basophils % (auto) 0.1 %; Hematocrit (blood only) 42.9 % (42-52); Hemoglobin 13.8 g/dL (14.0-18.0); Immature Granulocytes # (auto) 0.14 K/uL (0.00-0.02); Immature Granulocytes % (auto) 0.8 %; Lymphocytes # (auto) 0.46 K/uL (1.2-3.4); Lymphocytes % (auto) 2.7 %; Mean Corpuscular Hemoglobin 31.8 pg (25-34); Mean Corpuscular Hgb Conc 32.2 g/dL (32-36); Mean Corpuscular Volume 98.8 fL (80-100); Mean Platelet Volume 11.9 fL (7.4-10.4); Monocytes # (auto) 0.88 K/uL (0.11-0.59); Monocytes % (auto) 5.2 %; Neutrophils # (auto) 15.58 K/uL (1.4-6.5); Neutrophils % (auto) 91.2 %; Platelet Count 103 K/uL (130-400); RDW Coefficient of Variation 13.9 % (11.5-14.5); RDW Standard Deviation 49.6 fL (36.4-46.3); Red Blood Count 4.34 M/uL (4.7-6.1); White Blood Count 17.07 K/uL (4.8-10.8)
[2020-10-29 07:06] LABS: BUN Creatinine Ratio 34.2 (10-20); Calcium 9.4 mg/dl (8.5-10.1); Creatinine Clr Calc Pharmacy 49.5 ml/min; Est GFR (African American) 79.5; Est GFR (Non-African American) 68.6; Potassium 4.4 mmol/L (3.5-5.1)
[2020-10-29] MEDS ORDERED: ALBUT/IPRATROP 3MG/0.5MG NEB 3 ML VIAL ONE (07:56)
[2020-10-29] MEDS: guaiFENesin 600 MG TABCR PO SCH ×2 (08:01→20:53)
[2020-10-29] MEDS: PANTOprazole 40 MG TAB PO SCH ×2 (08:01→20:54)
[2020-10-29] MEDS: lisinopril 10 MG TAB PO SCH (08:01)
[2020-10-29] MEDS: METOCLOPRAMIDE HCL 10 MG TABLET PO SCH ×2 (08:01→20:54)
[2020-10-29] MEDS: FLUTICASONE/VILANTEROL 100/25MCG 14 PUFFS/INHALER INH SCH (08:02)
[2020-10-29] MEDS: AVODART~ORDER AWAITING ACTION SCH ×2 (08:02→17:01)
[2020-10-29] MEDS: INSULIN ASPART 100 UNITS/ML 3 ML PEN SC SCH ×4 (08:46→20:50)
--- NOTE | 2020-10-29 10:04 | Hospitalist Progress Note ---
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 Patient with no evidence of volume overload. No clear infectious process noted on imaging. Labored breathing upon any activity or movement. COPD exacerbation, chronic respiratory failure -not fluid overloaded, CXR unremarkable beyond baseline emphysema and ILD, no signs of infectious source; likely COPD exacerbation -acute exacerbation of symptoms on 10/24 afternoon suspicious for ACS but normal EKG and negative troponin, PE ruled out with CTA, was not fluid overloaded, ABG showed retaining CO2, CXR unchanged -sees Dr. Hines (pulmonary) outpatient -10/25/20 Attending discussed palliative care w/ patient. He has end-stage COPD w/ poor reserves. Patient and discussed about potentially looking into assisted living in the future. -palliative care consult placed; appreciate ongoing recommendations -discontinuing IV zosyn after repeat procal was 0.05 (Oct 27) -discontinued mucomyst -c/w albuterol inhaler q4h -duonebs changed from q2h prn to q2h scheduled -c/w fluticasone/vilanterol 1puff daily -c/w mucinex 1200mg PO bid -c/w levalbuterol neb q2h prn -10/28/20: increased solumedrol from 60mg tid to 80mg IV tid -10/28/20: added azithromycin 250mg PO qd -BiPAP as needed Chest pain -reportedly relieved by mylanta and by belching; suspect indigestion or GERD as cause -serial troponins neg, no EKG evidence of acute ischemia, symptoms not suggestive of ACS; reevaluated during episode on 10/24 and still suggested against ACS -10/24/20: added simethicone 80mg PO q6h prn -10/28/20: increased mylanta to q6h prn HTN -contributing factors include underlying HTN, COPD exacerbation, steroids -continue lisinopril 10mg PO qd (home dose 5mg PO qd, likely will need to reduce dose back to home dose upon discharge) Acute kidney injury: resolved -potentially due to poor PO intake; however, has resolved and PO intake is improving -BMP qAM Thrombocytopenia -stable GERD -stable -continue protonix 40mg PO bid -mylanta as above FENGI: heart healthy diet DVT ppx: lovenox 30mg sq qd (continued despite platelet count under 100, as PE would be far more severe than a bleed) Code status: DNR/DNI (updated per palliative consult on 10/28/2020; patient had been CC before) Dispo: med/surg tele (2) Chest pain: (3) Hypertension: (4) Chronic respiratory failure: (5) Dependence on supplemental oxygen: (6) Thrombocytopenia: (7) Alcoholic cirrhosis: Admission and Anticipated Discharge Date Admission Date: October 20, 2020 Supervising Physician Co-Signing Physician Notes I personally examined the patient and verified all joaquin points of history and exam, discussed case, and agree with decision making with Dr Aguirre less dyspnic on bipap vitals noted nad heent nc at mmm lungs markedly diminished throughout but better air entry than yesterday (now wearing bipap) still using accessory muscles although a bit less acute on chronic mixed hypoxic and hypercapnic respiratory failure related to COPD exacerbation -continue steroids -continue nebs scheduled -continue zithromax for pulmonary anti-inflammatory effect -continue supportive care (continue to encourage bipap as much as possible) -upright as best as possible/as much as he can tolerate -palliative input appreciated otherwise as above Subjective Per overnight resident, patient had an episode of tachycardia last night between 112-126 between 9pm and midnight; in response he changed patient's duonebs to q4h. These were changed back to q2h this morning. Patient seen at bedside this morning. He feels about the same as yesterday. His breathing is still "very tight". He was able to cough up some phlegm twice yesterday which helped him feel better. Reports he used BiPAP overnight and this morning for 4-5 hours with a 2.5 hour break and tolerated it well. He reports he is starting to lose hope that he'll be able to return home. Denies chest pain at this time. Has no new complaints or concerns. Review of Systems Constitutional: + fatigue; no fever and no chills Cardiovascular: no chest pain, no palpitations and no lightheadedness Gastrointestinal: no abdominal pain, no nausea, no vomiting, no constipation and no diarrhea/loose stools Genitourinary: no dysuria Physical Exam Constitutional: cooperative; no acute distress and + uncomfortable Respiratory: + labored breathing, + uses accessory muscles and + prolonged expiratory phase; + not able to speak in complete sentence Auscultation: + diminished lung sounds; no crackles moderate expiratory wheezes heard in all lung jules Cardiovascular: rate near 100, regular rhythm, no murmurs appreciated Psychiatric: Orientation: alert and oriented x 3 Affect: + anxious affect Results & Data Results & Data ([facility]) Vital Signs (Past 12 Hours) Vital Signs Temp Pulse Pulse Resp BP BP Pulse Ox 10/29/20 09:05 154/74 H 92 10/29/20 08:13 34.7 C L 10/29/20 08:06 101 H 22 95 10/29/20 07:45 60 18 120/79 93 10/29/20 02:36 36.6 C 81 22 136/72 92 10/29/20 02:15 92 H 92 H 20 93 10/28/20 23:38 36.6 C 112 H 20 149/84 H 93 10/28/20 23:01 116 H Resident Activity Tracking Resident Involvement: Resident Care Provided Care Provided: Adult Hospital Medicine (1) Chest pain Chest pain type: unspecified Qualified Code(s): R07.9 - Chest pain, unspecified (2) Hypertension Hypertension type: essential hypertension Qualified Code(s): I10 - Essential (primary) hypertension
[2020-10-29] MEDS: AZITHROMYCIN 250 MG TAB PO SCH (17:01)
[2020-10-29] MEDS: ALBUTEROL 0.5% NEB SOLN 2.5 MG/0.5 ML VIAL NEB PRN (17:28)
--- NOTE | 2020-10-29 17:46 | Billing Data ---
Date of Service October 29, 2020 Coding Level of Care Code 82469 Subseq Hosp Care Lvl 3
[2020-10-29] MEDS: ENOXAPARIN INJ 40 MG/0.4 ML SYR SQ SCH (20:53)
[2020-10-30] MEDS: AVODART~ORDER AWAITING ACTION SCH ×4 (00:49→23:26)
[2020-10-30] MEDS: ALBUT/IPRATROP 3MG/0.5MG NEB 3 ML VIAL INH SCH ×10 (00:51→23:20)
[2020-10-30] MEDS: methylPREDNISolone 80 MG in SYRINGE 0 ML IV SCH ×3 (06:16→21:03)
[2020-10-30 07:35] LABS: Hemoglobin 13.4 g/dL (14.0-18.0); Mean Corpuscular Hemoglobin 32.1 pg (25-34); Mean Corpuscular Hgb Conc 32.7 g/dL (32-36); Mean Corpuscular Volume 98.3 fL (80-100); Mean Platelet Volume 12.1 fL (7.4-10.4); Platelet Count 96 K/uL (130-400); RDW Coefficient of Variation 13.9 % (11.5-14.5); RDW Standard Deviation 49.7 fL (36.4-46.3); Red Blood Count 4.17 M/uL (4.7-6.1); White Blood Count 15.08 K/uL (4.8-10.8)
[2020-10-30 07:50] LABS: Basophils # (auto) 0.01 K/uL (0-0.2); Basophils % (auto) 0.1 %; Immature Granulocytes # (auto) 0.03 K/uL (0.00-0.02); Immature Granulocytes % (auto) 0.2 %; Lymphocytes # (auto) 0.19 K/uL (1.2-3.4); Lymphocytes % (auto) 1.3 %; Monocytes # (auto) 0.59 K/uL (0.11-0.59); Monocytes % (auto) 3.9 %; Neutrophils # (auto) 14.26 K/uL (1.4-6.5); Neutrophils % (auto) 94.5 %
[2020-10-30 07:59] LABS: BUN Creatinine Ratio 38.1 (10-20); Calcium 9.3 mg/dl (8.5-10.1); Creatinine Clr Calc Pharmacy 53.3 ml/min; Est GFR (African American) 86.9
[2020-10-30] MEDS: INSULIN ASPART 100 UNITS/ML 3 ML PEN SC SCH ×4 (08:29→21:02)
[2020-10-30] MEDS: FLUTICASONE/VILANTEROL 100/25MCG 14 PUFFS/INHALER INH SCH (08:29)
[2020-10-30] MEDS: guaiFENesin 600 MG TABCR PO SCH ×2 (08:31→21:00)
[2020-10-30] MEDS: PANTOprazole 40 MG TAB PO SCH ×2 (08:31→21:02)
[2020-10-30] MEDS: lisinopril 10 MG TAB PO SCH (08:32)
[2020-10-30] MEDS: METOCLOPRAMIDE HCL 10 MG TABLET PO SCH ×2 (08:33→21:03)
--- NOTE | 2020-10-30 10:53 | Hospitalist Progress Note ---
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 Patient has decided to transition to home hospice with hope for discharge on 10/30/2020. COPD exacerbation, chronic respiratory failure -10/30/2020: patient decision made to transition to home hospice g -no longer taking IV zosyn, mucomyst -continue albuterol inhaler q4h -duonebs changed this afternoon (10/30/2020) per patient preference from q2h scheduled to q4h scheduled -continue fluticasone/vilanterol 1puff daily -continue mucinex 1200mg PO bid -continue levalbuterol neb q2h prn -continue solumedrol from 60mg tid to 80mg IV tid -continue azithromycin 250mg PO qd -BiPAP as needed Chest pain: stable -relieved by mylanta and by belching; suspect indigestion or GERD as cause -serial troponins neg, no EKG evidence of acute ischemia, symptoms not suggestive of ACS -continue simethicone 80mg PO q6h prn -continue mylanta 15mg PO q6h prn HTN -contributing factors include underlying HTN, COPD exacerbation, steroids -continue lisinopril 10mg PO qd (home dose 5mg PO qd) Acute kidney injury: resolved -BMP qAM Thrombocytopenia: stable -continuing lovenox 30mg sq qd despite platelet count under 100 due to relative risk of PE vs bleeding GERD: stable -continue protonix 40mg PO bid -continue mylanta as above FENGI: heart healthy diet DVT ppx: lovenox 30mg sq qd Code status: DNR/DNI (updated per palliative consult on 10/28/2020; patient had been CC before) Dispo: med/surg tele with plan to discharge to home hospice on 10/31/2020 (2) Chest pain: (3) Hypertension: (4) Chronic respiratory failure: (5) Dependence on supplemental oxygen: (6) Thrombocytopenia: (7) Alcoholic cirrhosis: Admission and Anticipated Discharge Date Admission Date: October 20, 2020 Supervising Physician Co-Signing Physician Notes I personally examined the patient and verified all joaquin points of history and exam, discussed case, and agree with decision making with Dr Dick overall dyspnea persists. in discussions he is ready for home w hospice. dr dick called and updated as i observed vitals noted nad heent nc at mmm lungs markedly diminished throughout but better air entry than yesterday (now wearing bipap) still using accessory muscles although a bit less acute on chronic mixed hypoxic and hypercapnic respiratory failure related to COPD exacerbation -continue steroids -continue nebs scheduled -continue zithromax for pulmonary anti-inflammatory effect -continue supportive care (continue to encourage bipap as much as possible) -upright as best as possible/as much as he can tolerate -working on home w hospice - likely tomorrow otherwise as above Subjective Patient seen at bedside this morning. He reports his breathing is feeling a bit tighter than yesterday. Reports having a good night and was able to tolerate BiPAP for 4-5 hours, after which his breathing had improved and he felt refreshed; however, shortly after he received a nebulizer treatment around 5am this morning, patient reports he felt his heart rate increase, and his breathing became more difficult. He does not feel this was due to the nebulizer treatment and endorses feeling that each treatment improves his breathing. He wishes to return home and to see his although he continues to fear this may not happen. Reports he was able to cough up some phelgm overnight. Denies chest pain, abdominal pain, lightheadedness, fever, chills, or other symptoms at this time. Review of Systems Constitutional: + fatigue; no fever and no chills Cardiovascular: + palpitations; no chest pain, no lightheadedness, no syncope, no edema and no calf pain Gastrointestinal: no abdominal pain, no nausea and no vomiting Genitourinary: no dysuria Psychiatric: + anxiety Physical Exam Constitutional: cooperative; + uncomfortable Respiratory: + labored breathing, + uses accessory muscles and + prolonged expiratory phase; + not able to speak in complete sentence Auscultation: + diminished lung sounds and + wheezes; no crackles, no rales and no rhonchi Cardiovascular: RRR, no murmur, no edema Gastrointestinal (Abdomen): normal bowel sounds, soft, nontender, no hepatosplenomegaly Psychiatric: Orientation: alert, oriented x 3 and cooperative Affect: + anxious affect Results & Data Results & Data ([facility]) Vital Signs (Past 12 Hours) Vital Signs Temp Pulse Pulse Resp BP BP Pulse Ox 10/30/20 09:43 103 H 103 H 23 96 10/30/20 08:39 103 H 20 94 10/30/20 08:10 103 H 16 94 10/30/20 08:01 107 H 10/30/20 07:34 37.0 C 107 H 16 182/97 H 96 10/30/20 04:59 91 H 18 95 10/30/20 04:06 36.5 C 94 H 20 130/67 94 10/30/20 03:11 96 H 98 H 16 90 10/30/20 00:53 105 H 105 H 16 97 10/30/20 00:34 106 H 10/29/20 23:42 36.8 C 100 H 22 128/80 94 10/29/20 23:39 105 H 20 97 Resident Activity Tracking Resident Involvement: Resident Care Provided Care Provided: Adult Hospital Medicine (1) Chest pain Chest pain type: unspecified Qualified Code(s): R07.9 - Chest pain, unspecified (2) Hypertension Hypertension type: essential hypertension Qualified Code(s): I10 - Essential (primary) hypertension
[2020-10-30] MEDS: MoRPHine SULFATE 5 MG/0.25 ML UDP PO PRN (11:56)
--- NOTE | 2020-10-30 13:50 | Palliative Care Progress Note ---
Date of Service October 30, 2020 Assessment & Plan (1) Dyspnea: He does feel less short of breath with bipap. He has been reluctant to use morphine because he is afraid of getting addicted. I reassured him that we were using very low dose medication in a controlled setting and that I am not worried about him getting addicted to opioids. He verbalizes his concerns that time is short and has talked about wanting to be at home for his . However, he is concerned about getting short of breath at home and not being able to manage it. He is agreeable to trying morphine for air hunger and is interested in hospice care at home. Discussed with Dr. Landry and RN. (2) Palliative care encounter: Admission and Anticipated Discharge Date Admission Date: October 20, 2020 Subjective Sitting up in chair. Continues to have labored breathing and difficulty conversing. He continues to use bipap prn for dyspnea. He has not been wanting to use morphine. Review of Systems Review of Systems: Mcdaniel Symptom Assessment Scale Pain 0/3 Dyspnea 3/3 Anxiety 1/3 Nausea 0/3 Drowsiness 0/3 Palliative Performance Score 40% Physical Exam Constitutional: + ill appearing; + uncomfortable ENMT: Mouth: + dry oral mucous membranes Respiratory: + labored breathing and + uses accessory muscles cough productive welch sputum Skin: warm and dry Psychiatric: Orientation: alert and oriented x 3 Affect: + anxious affect Results & Data ([facility]) Vital Signs (Past 12 Hours) Vital Signs Temp Pulse Pulse Resp BP BP Pulse Ox 10/30/20 13:27 109 H 24 138/86 10/30/20 09:43 103 H 103 H 23 96 10/30/20 08:39 103 H 20 94 10/30/20 08:10 103 H 16 94 10/30/20 08:01 107 H 10/30/20 07:34 98.6 F 107 H 16 182/97 H 96 10/30/20 04:59 91 H 18 95 10/30/20 04:06 97.7 F 94 H 20 130/67 94 10/30/20 03:11 96 H 98 H 16 90 PG Care Time/CCT Total # of Minutes Spent Total Time Spent with Patient: Total time spent is greater than 50% in coordination of care (as documented) at patient's floor/unit and/or counseling patient: total time spent 25 minutes with more than 50% of time spent on symptom management, coordination of care. Coding Level of Care Code 51188 Subseq Hosp Care Lvl 2 Diagnoses Dyspnea R06.00 Palliative care encounter Z51.5
[2020-10-30] MEDS: AZITHROMYCIN 250 MG TAB PO SCH (16:55)
[2020-10-30] MEDS: ALUMINUM/MAGNESIUM/SIMETH (MAALOX MAX) 30 ML UDC PO PRN (17:01)
--- NOTE | 2020-10-30 19:53 | Billing Data ---
Date of Service October 30, 2020 Coding Level of Care Code 05069 Subseq Hosp Care Lvl 3
[2020-10-30] MEDS: ENOXAPARIN INJ 40 MG/0.4 ML SYR SQ SCH (20:59)
[2020-10-31] MEDS: ALBUT/IPRATROP 3MG/0.5MG NEB 3 ML VIAL INH SCH ×6 (03:19→23:02)
[2020-10-31] MEDS: methylPREDNISolone 80 MG in SYRINGE 0 ML IV SCH ×3 (05:28→20:53)
[2020-10-31 07:22] LABS: BUN Creatinine Ratio 46.4 (10-20); Calcium 9.4 mg/dl (8.5-10.1); Creatinine Clr Calc Pharmacy 56.6 ml/min; Est GFR (African American) 90.2; Est GFR (Non-African American) 77.8; Potassium 4.2 mmol/L (3.5-5.1)
[2020-10-31 07:30] LABS: Hemoglobin 12.7 g/dL (14.0-18.0); Mean Corpuscular Hemoglobin 31.5 pg (25-34); Mean Corpuscular Hgb Conc 31.8 g/dL (32-36); Mean Corpuscular Volume 99.3 fL (80-100); Platelet Count 74 K/uL (130-400); RDW Coefficient of Variation 13.7 % (11.5-14.5); RDW Standard Deviation 49.5 fL (36.4-46.3); Red Blood Count 4.03 M/uL (4.7-6.1); White Blood Count 13.15 K/uL (4.8-10.8)
[2020-10-31 07:31] LABS: Immature Granulocytes # (auto) 0.03 K/uL (0.00-0.02); Immature Granulocytes % (auto) 0.2 %; Lymphocytes # (auto) 0.17 K/uL (1.2-3.4); Lymphocytes % (auto) 1.3 %; Monocytes # (auto) 0.46 K/uL (0.11-0.59); Monocytes % (auto) 3.5 %; Neutrophils # (auto) 12.49 K/uL (1.4-6.5)
[2020-10-31] MEDS: AVODART~ORDER AWAITING ACTION SCH ×2 (07:40→15:15)
[2020-10-31] MEDS: INSULIN ASPART 100 UNITS/ML 3 ML PEN SC SCH ×4 (08:32→20:50)
[2020-10-31] MEDS: FLUTICASONE/VILANTEROL 100/25MCG 14 PUFFS/INHALER INH SCH (08:33)
[2020-10-31] MEDS: METOCLOPRAMIDE HCL 10 MG TABLET PO SCH ×2 (08:34→20:50)
[2020-10-31] MEDS: guaiFENesin 600 MG TABCR PO SCH ×2 (08:34→20:49)
[2020-10-31] MEDS: lisinopril 10 MG TAB PO SCH (08:34)
[2020-10-31] MEDS: PANTOprazole 40 MG TAB PO SCH ×2 (08:34→20:49)
[2020-10-31] MEDS: MoRPHine SULFATE 5 MG/0.25 ML UDP PO PRN (09:43)
--- NOTE | 2020-10-31 13:24 | Palliative Care Progress Note ---
Date of Service October 31, 2020 Assessment & Plan (1) Dyspnea: Improved symptom management with bipap, morphine and ativan as needed. Offered slightly higher dose of morphine but he declines. (2) Palliative care encounter: Anticipate discharge home tomorrow with hospice. Discussed with Dr. Landry and immigration case worker. I spoke with Mrs. Galvan at home. I am not confident that she understands his condition and the level of care that he will need. She does have assistance from her niece, Giuliana. Giuliana is working with case management to add additional caregivers at home. (3) Chronic obstructive pulmonary disease: (4) Chronic respiratory failure: Admission and Anticipated Discharge Date Admission Date: October 20, 2020 Subjective Sitting up in chair. Appears slightly less labored with breathing today. He did try morphine and said that it helped a little. Bipap has also been helpful in relieving his dyspnea. Review of Systems Review of Systems: Stanley Symptom Assessment Scale Pain 0/3 Dyspnea 2/3 Fatigue 3/3 Nausea 0/3 Anxiety 0/3 Palliative Performance Score 40% Physical Exam Constitutional: + ill appearing ENMT: Mouth: + dry oral mucous membranes Respiratory: + labored breathing and + uses accessory muscles Skin: warm and dry Neurologic: awake; no focal motor deficits Psychiatric: Orientation: oriented x 3 Results & Data ([facility]) Vital Signs (Past 12 Hours) Vital Signs Temp Pulse Pulse Resp BP BP Pulse Ox 10/31/20 12:49 122 H 21 94 10/31/20 11:53 97.3 F L 110 H 18 129/64 95 10/31/20 11:12 115 H 23 96 10/31/20 07:15 94 H 10/31/20 07:00 98.2 F 60 18 117/84 91 10/31/20 03:19 86 86 20 95 PG Care Time/CCT Total # of Minutes Spent Total Time Spent with Patient: Total time spent is greater than 50% in coordination of care (as documented) at patient's floor/unit and/or counseling patient: total time spent 40 minutes with more than 50% of time spent on family support, symptom management and care coordination Coding Level of Care Code 19454 Subseq Hosp Care Lvl 3 Diagnoses Dyspnea R06.00 Palliative care encounter Z51.5 Chronic obstructive pulmonary disease J44.9 Chronic respiratory failure J96.10
--- NOTE | 2020-10-31 16:08 | Hospitalist Progress Note ---
Date of Service October 31, 2020 Assessment & Plan (1) COPD exacerbation: 89 y/o male with a PMH of severe COPD (3L home O2), HTN, and GERD who presents with 2-3 weeks of progressive SOB with exertion and later at rest, acutely worsening over the 3-4 days prior to arrival. Patient showed minor improvement from 10/30/2020 to 10/31/2020 and has decided to delay home hospice discharge by at least one day. COPD exacerbation, chronic respiratory failure -10/30/2020: patient decision made to transition to home hospice -10/31/2020: patient has decided to delay discharge to home hospice; see HPI -no longer taking IV zosyn, mucomyst -continue albuterol inhaler q4h -dandre changed this afternoon (10/30/2020) per patient preference from q2h scheduled to q4h scheduled -continue fluticasone/vilanterol 1puff daily -continue mucinex 1200mg PO bid -continue levalbuterol neb q2h prn -continue solumedrol from 60mg tid to 80mg IV tid -continue azithromycin 250mg PO qd -BiPAP as needed Chest pain: stable -relieved by mylanta and by belching; suspect indigestion or GERD as cause -serial troponins neg, no EKG evidence of acute ischemia, symptoms not suggestive of ACS -continue simethicone 80mg PO q6h prn -continue mylanta 15mg PO q6h prn HTN -contributing factors include underlying HTN, COPD exacerbation, steroids -continue lisinopril 10mg PO qd (home dose 5mg PO qd) Acute kidney injury: resolved -BMP qAM Thrombocytopenia: stable -continuing lovenox 30mg sq qd despite platelet count under 100 due to relative risk of PE vs bleeding GERD: stable -continue protonix 40mg PO bid -continue mylanta as above FENGI: heart healthy diet DVT ppx: lovenox 30mg sq qd Code status: DNR/DNI (updated per palliative consult on 10/28/2020; patient had been CC before) Dispo: med/surg tele with plan to discharge when patient is ready (see HPI) Admission and Anticipated Discharge Date Admission Date: October 20, 2020 Supervising Physician Co-Signing Physician Notes I personally examined the patient and verified all joaquin points of history and exam, discussed case, and agree with decision making with Dr Aguirre breathing alittle better but still bad. 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 He requests to stay another day to see if he continues to improve. Reports less work of breathing, improved SOB, no CP, and no new symptoms. Denies lightheadedness, dizziness, nausea, vomiting, constipation, diarrhea, or other symptoms. Review of Systems Review of Systems: All systems reviewed & are unremarkable except as noted in HPI & below Physical Exam Constitutional: + frail appearing and cooperative; no acute distress Respiratory: + labored breathing; does not use accessory muscles Auscultation: + diminished lung sounds and + wheezes Cardiovascular: RRR, no murmur, no edema Gastrointestinal (Abdomen): normal bowel sounds, soft, nontender, no hepatosplenomegaly Results & Data Results & Data ([facility]) Vital Signs (Past 12 Hours) Vital Signs Temp Pulse Pulse Resp BP BP Pulse Ox 10/31/20 16:03 37.0 C 101 H 18 115/64 95 10/31/20 15:42 98 H 10/31/20 15:05 99 H 99 H 22 94 10/31/20 12:49 122 H 21 94 10/31/20 11:53 36.3 C L 110 H 18 129/64 95 10/31/20 11:12 115 H 23 96 10/31/20 07:15 94 H 10/31/20 07:00 36.8 C 60 18 117/84 91 Resident Activity Tracking Resident Involvement: Resident Care Provided Care Provided: Adult [facility] Hospital Medicine
[2020-10-31] MEDS: AZITHROMYCIN 250 MG TAB PO SCH (17:29)
[2020-10-31] MEDS: ALUMINUM/MAGNESIUM/SIMETH (MAALOX MAX) 30 ML UDC PO PRN (17:34)
--- NOTE | 2020-10-31 18:53 | Billing Data ---
Date of Service October 31, 2020 Coding Level of Care Code 89278 Subseq Hosp Care Lvl 3
[2020-10-31] MEDS: ENOXAPARIN INJ 40 MG/0.4 ML SYR SQ SCH (20:49)
[2020-11-01] MEDS: AVODART~ORDER AWAITING ACTION SCH ×4 (00:27→23:22)
[2020-11-01] MEDS: ALBUT/IPRATROP 3MG/0.5MG NEB 3 ML VIAL INH SCH ×6 (03:20→22:15)
[2020-11-01] MEDS: methylPREDNISolone 80 MG in SYRINGE 0 ML IV SCH ×3 (05:40→20:51)
[2020-11-01 07:51] LABS: Hematocrit (blood only) 39.9 % (42-52); Hemoglobin 12.8 g/dL (14.0-18.0); Mean Corpuscular Hemoglobin 31.8 pg (25-34); Mean Corpuscular Hgb Conc 32.1 g/dL (32-36); Mean Corpuscular Volume 99.3 fL (80-100); Platelet Count 84 K/uL (130-400); RDW Coefficient of Variation 13.8 % (11.5-14.5); RDW Standard Deviation 49.9 fL (36.4-46.3); Red Blood Count 4.02 M/uL (4.7-6.1); White Blood Count 10.93 K/uL (4.8-10.8)
[2020-11-01 07:52] LABS: Basophils # (auto) 0.01 K/uL (0-0.2); Basophils % (auto) 0.1 %; Immature Granulocytes # (auto) 0.04 K/uL (0.00-0.02); Immature Granulocytes % (auto) 0.4 %; Lymphocytes # (auto) 0.26 K/uL (1.2-3.4); Lymphocytes % (auto) 2.4 %; Monocytes # (auto) 0.24 K/uL (0.11-0.59); Monocytes % (auto) 2.2 %; Neutrophils # (auto) 10.38 K/uL (1.4-6.5); Neutrophils % (auto) 94.9 %; Platelet Estimate Decreased (Normal)
[2020-11-01 08:13] LABS: BUN Creatinine Ratio 43.7 (10-20); Calcium 9.8 mg/dl (8.5-10.1); Creatinine Clr Calc Pharmacy 55.3 ml/min; Est GFR (African American) 89.3; Est GFR (Non-African American) 77.1; Potassium 4.4 mmol/L (3.5-5.1)
[2020-11-01] MEDS: MoRPHine SULFATE 5 MG/0.25 ML UDP PO PRN ×4 (08:29→20:47)
[2020-11-01] MEDS: INSULIN ASPART 100 UNITS/ML 3 ML PEN SC SCH ×4 (08:29→20:50)
[2020-11-01] MEDS: FLUTICASONE/VILANTEROL 100/25MCG 14 PUFFS/INHALER INH SCH (08:31)
[2020-11-01] MEDS: guaiFENesin 600 MG TABCR PO SCH ×2 (08:31→21:20)
[2020-11-01] MEDS: METOCLOPRAMIDE HCL 10 MG TABLET PO SCH ×2 (08:32→21:20)
[2020-11-01] MEDS: PANTOprazole 40 MG TAB PO SCH ×2 (08:32→21:20)
[2020-11-01] MEDS: lisinopril 10 MG TAB PO SCH (08:32)
--- NOTE | 2020-11-01 13:18 | Hospitalist Progress Note ---
Date of Service November 01, 2020 Assessment & Plan (1) COPD exacerbation: 89 y/o male with a PMH of severe COPD (3L home O2), HTN, and GERD who presents with 2-3 weeks of progressive SOB with exertion and later at rest, acutely worsening over the 3-4 days prior to arrival. Patient showed minor improvement from 10/30/2020 to 10/31/2020 and has decided to delay home hospice discharge by at least one day. COPD exacerbation, chronic respiratory failure -10/30/2020: patient decision made to transition to home hospice -10/31/2020: patient has decided to delay discharge to home hospice -11/01/2020: patient with increased work of breathing and worsening dyspnea. Patient does not feel comfortable with discharge home given his worsening condition. Extensive discussion with patient and attending regarding prognosis and hospice management. Patient to become comfort care at this time. Will discontinue vitals/monitoring and labs. Will continue supplemental oxygen via NC or bipap for comfort. Will continue respiratory regimen with albuterol inhaler q4h, duonebs q4h, fluticasone/vilanterol 1 puff daily, mucinex 1200mg po bid, levalbuterol neb q2h prn, solumedrol 80mg IV tid. Patient states that morphine sulfate significantly improves pain/discomfort but that q4h prn is too long of duration as it wears off too quickly -- morphine sulfate 2.5mg changed to q2h prn -no longer taking IV zosyn, mucomyst -continue azithromycin 250mg PO qd -encourage longer periods of BiPAP as needed Chest pain: stable -relieved by mylanta and by belching; suspect indigestion or GERD as cause -serial troponins neg, no EKG evidence of acute ischemia, symptoms not s uggestive of ACS -continue simethicone 80mg PO q6h prn -continue mylanta 15mg PO q6h prn HTN -contributing factors include underlying HTN, COPD exacerbation, steroids -continue lisinopril 10mg PO qd (home dose 5mg PO qd) Acute kidney injury: resolved -Will discontinue AM BMP due to [employer] Thrombocytopenia: stable -continuing lovenox 30mg sq qd despite platelet count under 100 due to relative risk of PE vs bleeding GERD: stable -continue protonix 40mg PO bid -continue mylanta as above FENGI: heart healthy diet DVT ppx: lovenox 30mg sq qd Code status: DNR/DNI (updated per palliative consult on 10/28/2020; patient had been CC before) Dispo: med/surg Admission and Anticipated Discharge Date Admission Date: October 20, 2020 Supervising Physician Co-Signing Physician Notes I personally examined the patient and verified all joaquin points of history and exam, discussed case, and agree with decision making with Dr Roach breathing bad. 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 related to COPD exacerbation -continue steroids -continue nebs scheduled -continue zithromax for pulmonary anti-inflammatory effect -continue supportive care (continue to encourage bipap as much as possible) -upright as best as possible/as much as he can tolerate -d/w pt frankly about his prognosis and that i have concerns about him being able to even make it home - we discussed downside of staying here is not getting home but that we should be able to have 1 family member visit at a time given his status/prognosis -- and upside of staying here would be having nursing/RT etc to help w care/comfort. upside of home would be being able to be around more family but that while he would have basically the same tools for treatment, he//family would be mostly who is helping to implement them. he expressed understanding and felt strongly about staying here. otherwise as above Subjective Patient seen and evaluated at bedside this morning. Reports acute on chronic worsening of the shortness of breath that started while eating breakfast this morning. Patient denies any pain, specifically CP, JOSEPH, or abdominal pain. Review of Systems Review of Systems: Constitutional: + fatigue. Denies fever or chills Cardiovascular: Denies chest pain Respiratory:+ SOB Gastrointestinal: Denies abdominal pain, nausea, vomiting, constipation, diarrhea Neurological: Denies headache Physical Exam Physical Exam: GENERAL: Uncomfortable appearing with increased respiratory effort. EYES: EOMI. RESPIRATORY: Diffuse wheezing and crackles bilaterally. Labored respirations with accessory muscle use. Unable to speak in full sentences. Answering with 1-2 word responses. CARDIOVASCULAR: Regular rate and rhythm. No murmurs. EXTREMITIES: No edema. Non-tender. SKIN: Warm and dry. PSYCHIATRIC: Cooperative. Appropriate mood and affect. Results & Data Results & Data ([facility]) Vital Signs (Past 12 Hours) Vital Signs Temp Pulse Pulse Resp BP Pulse Ox 11/01/20 11:12 111 H 20 93 11/01/20 11:08 111 H 20 93 11/01/20 10:57 36.7 C 112 H 22 119/112 H 89 L 11/01/20 09:38 161/83 H 92 11/01/20 08:45 107 H 11/01/20 08:38 36.5 C 130 H 26 H 177/92 H 95 11/01/20 08:09 36.8 C 76 12 119/64 93 11/01/20 07:53 111 H 18 94 11/01/20 03:31 104 H 20 96 11/01/20 03:20 104 H 20 96 11/01/20 03:00 36.5 C 104 H 16 153/82 H 94 Resident Activity Tracking Resident Involvement: Resident Care Provided Care Provided: Adult Hospital Medicine
[2020-11-01] MEDS: AZITHROMYCIN 250 MG TAB PO SCH (17:14)
--- NOTE | 2020-11-01 17:56 | Billing Data ---
Date of Service November 01, 2020 Coding Level of Care Code 79785 Subseq Hosp Care Lvl 3
[2020-11-01] MEDS: ENOXAPARIN INJ 40 MG/0.4 ML SYR SQ SCH (20:49)
[2020-11-02] MEDS: ALBUT/IPRATROP 3MG/0.5MG NEB 3 ML VIAL INH SCH ×6 (03:05→22:25)
[2020-11-02] MEDS: methylPREDNISolone 80 MG in SYRINGE 0 ML IV SCH ×3 (05:39→21:28)
[2020-11-02] MEDS: MoRPHine SULFATE 5 MG/0.25 ML UDP PO PRN ×3 (08:39→15:00)
[2020-11-02] MEDS: AVODART~ORDER AWAITING ACTION SCH ×3 (08:40→23:14)
[2020-11-02] MEDS: guaiFENesin 600 MG TABCR PO SCH ×2 (08:40→20:18)
[2020-11-02] MEDS: lisinopril 10 MG TAB PO SCH (08:41)
[2020-11-02] MEDS: METOCLOPRAMIDE HCL 10 MG TABLET PO SCH ×2 (08:41→20:18)
[2020-11-02] MEDS: PANTOprazole 40 MG TAB PO SCH ×2 (08:41→20:18)
[2020-11-02] MEDS: FLUTICASONE/VILANTEROL 100/25MCG 14 PUFFS/INHALER INH SCH (08:41)
[2020-11-02] MEDS: INSULIN ASPART 100 UNITS/ML 3 ML PEN SC SCH ×2 (09:04→21:12)
--- NOTE | 2020-11-02 09:53 | Hospitalist Progress Note ---
Date of Service November 02, 2020 Assessment & Plan (1) COPD exacerbation: 89 y/o male with a PMH of severe COPD (3L home O2), HTN, and GERD who presents with 2-3 weeks of progressive SOB with exertion and later at rest, acutely worsening over the 3-4 days prior to arrival. Patient showed minor improvement from 10/30/2020 to 10/31/2020 and has decided to delay home hospice discharge by at least one day. COPD exacerbation, chronic respiratory failure -10/30/2020: patient decision made to transition to home hospice -10/31/2020: patient has decided to delay discharge to home hospice -11/01/2020: patient with increased work of breathing and worsening dyspnea. Patient does not feel comfortable with discharge home given his worsening condition. Extensive discussion with patient and attending regarding prognosis and hospice management. Patient to become comfort care at this time. Will discontinue vitals/monitoring and labs. Will continue supplemental oxygen via NC or bipap for comfort. Will continue respiratory regimen with albuterol inhaler q4h, duonebs q4h, fluticasone/vilanterol 1 puff daily, mucinex 1200mg po bid, levalbuterol neb q2h prn, solumedrol 80mg IV tid. Patient states that morphine sulfate significantly improves pain/discomfort but that q4h prn is too long of duration as it wears off too quickly -- morphine sulfate 2.5mg changed to q2h prn -no longer taking IV zosyn, mucomyst -continue azithromycin 250mg PO qd -encourage longer periods of BiPAP as needed -11/02: will continue supportive care. 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 Thrombocytopenia: stable -lovenox 30mg sq qd despite platelet count under 100 due to relative risk of PE vs bleeding -lovenox 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/02/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 but about the same. feeling like he's comfortable enough for expectations. 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 COPD regimen continues given that it hopefully is helping his dyspnea some otherwise as above Subjective Patient seen and evaluated at bedside this morning. Reports persistent dyspnea with little change from yesterday. + cough. Patient adamantly denies any pain at this time. He is hopeful that he will be able to have his visit with him today. Review of Systems Review of Systems: Constitutional: + fatigue. Cardiovascular: Denies chest pain Respiratory:+ SOB Gastrointestinal: Denies abdominal pain or nausea Neurological: Denies headache Physical Exam Physical Exam: GENERAL: Uncomfortable appearing with increased respiratory effort but patient reports that he is comfortable and without pain. EYES: EOMI. RESPIRATORY: Labored respirations with accessory muscle use. Unable to speak in full sentences. Answering with 1-2 word responses. EXTREMITIES: No edema. Non-tender. SKIN: Warm and dry. PSYCHIATRIC: Cooperative. Appropriate mood and affect. Results & Data Results & Data ([facility]) Vital Signs (Past 12 Hours) Vital Signs Pulse Pulse Resp Pulse Ox 11/02/20 07:22 106 H 18 96 11/02/20 03:06 104 H 104 H 21 93 11/01/20 22:16 106 H 16 96 Resident Activity Tracking Resident Involvement: Resident Care Provided Care Provided: Adult Hospital Medicine
[2020-11-02] MEDS: AZITHROMYCIN 250 MG TAB PO SCH (16:41)
--- NOTE | 2020-11-02 18:18 | Billing Data ---
Date of Service November 02, 2020 Coding Level of Care Code 11216 Subseq Hosp Care Lvl 3
[2020-11-02] MEDS ORDERED: INSULIN HUMAN REGULAR PER UNIT 5 UNITS in SYRINGE 4.95 ML IV STA (21:11)
[2020-11-03] MEDS: ALBUT/IPRATROP 3MG/0.5MG NEB 3 ML VIAL INH SCH ×4 (03:45→15:24)
[2020-11-03] MEDS: MoRPHine SULFATE 5 MG/0.25 ML UDP PO PRN ×7 (04:02→22:39)
[2020-11-03] MEDS ORDERED: INSULIN HUMAN REGULAR PER UNIT 4 UNITS in SYRINGE 3.96 ML IV STA (04:21)
[2020-11-03] MEDS: methylPREDNISolone 80 MG in SYRINGE 0 ML IV SCH ×2 (06:04→13:22)
--- NOTE | 2020-11-03 07:07 | Hospitalist Progress Note ---
Date of Service November 03, 2020 Assessment & Plan (1) COPD exacerbation: 89 y/o male with a PMH of severe COPD (3L home O2), HTN, and GERD who presents with 2-3 weeks of progressive SOB with exertion and later at rest, acutely worsening over the 3-4 days prior to arrival. 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 He does not want lab draws anymore including blood sugar checks and insulin administration. All medications that are nonpalliative have been stopped. -Continue DuoNeb/albuterol/Zithromax/Mucinex/prednisone for respiratory symptoms -Metoclopramide, pantoprazole, simethicone for abdominal symptoms -Zofran for nausea -Morphine sulfate 5 mg p.o. every 2 hours as needed COPD exacerbation, chronic respiratory failure terminal -10/30/2020: patient decision made to transition to home hospice -10/31/2020: patient has decided to delay discharge to home hospice -11/01/2020: patient with increased work of breathing and worsening dyspnea. Patient does not feel comfortable with discharge home given his worsening condition. Extensive discussion with patient and attending regarding prognosis and hospice management. Patient to become comfort care at this time. Will discontinue vitals/monitoring and labs. Will continue supplemental oxygen via NC or bipap for comfort. Will continue respiratory regimen with albuterol inhaler q4h, duonebs q4h, fluticasone/vilanterol 1 puff daily, mucinex 1200mg po bid, levalbuterol neb q2h prn, solumedrol 80mg IV tid. Patient states that morphine sulfate significantly improves pain/discomfort but that q4h prn is too long of duration as it wears off too quickly -- morphine sulfate 2.5mg changed to q2h prn -no longer taking IV zosyn, mucomyst -continue azithromycin 250mg PO qd -encourage longer periods of BiPAP as needed -11/02: will continue supportive care. -11/03: significantly out of breath status post bath requesting medication to assist with air hunger. Increased O2 to 5 L Chest pain: stable -relieved by mylanta and by belching; suspect indigestion or GERD as cause -serial troponins neg, no EKG evidence of acute ischemia, symptoms not suggestive of ACS -continue simethicone 80mg PO q6h prn -continue mylanta 15mg PO q6h prn HTN -contributing factors include underlying HTN, COPD exacerbation, steroids -continue lisinopril 10mg PO qd (home dose 5mg PO qd) -home lisinopril 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/02/20 for FURNITURE RESTORER Acute kidney injury: resolved -Will discontinue AM BMP due to FURNITURE RESTORER Thrombocytopenia: stable -lovenox 30mg sq qd despite platelet count under 100 due to relative risk of PE vs bleeding -lovenox 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/02/20 for FURNITURE RESTORER GERD: stable -continue protonix 40mg PO bid -continue mylanta as above FENGI: heart healthy diet DVT ppx: FURNITURE RESTORER Code status: DNR/DNI (updated per palliative consult on 10/28/2020; patient had been CC before); FURNITURE RESTORER as of 11/01/20 Dispo: med/surg Admission and Anticipated Discharge Date Admission Date: October 20, 2020 Supervising Physician Co-Signing Physician Notes Resident Physician Supervision Note: I independently interviewed and examined the patient and verified the joaquin history and physical, reviewed labs and image studies, discussed the case with the resident Dr. Pedroza and agree with the findings and care plan. Spoke to Dr. Mills - will transition to complete comfort care and d/c all interventions. Subjective Patient lying in bed this morning out of breath. Patient reports he received a bath this morning and that really took the wind out of him. Patient verbalized understanding of his prognosis, is requesting comfort care only. Requesting no more blood sugar checks nor insulin administration. Patient states his pain is well controlled at present, however he is experiencing intermittent air hunger. Well in the room I increase his oxygen to 5 L. Patient requesting medication to make him more comfortable otherwise all questions answered, no acute concerns. Physical Exam Physical Exam: General: Lying in bed out of breath Cardiac: Tachycardic Respiratory: Wheezes bilaterally labored breathing MSK: Moves extremities Neuro: Alert and oriented Psych: Calm and cooperative Results & Data Results & Data ([facility]) Vital Signs (Past 12 Hours) Vital Signs Pulse Resp Pulse Ox 11/03/20 03:45 115 H 28 H 94 11/02/20 22:26 119 H 26 H 93 11/02/20 19:37 116 H 20 97 Laboratory Results 11/03/20 11/03/20 11/03/20 Range/Units 04:18 04:18 04:17 POC Glucose 314 H* 310 H* 408 H* (70-99) mg/dl 11/02/20 11/02/20 Range/Units 20:49 20:47 POC Glucose 448 H* 473 H* (70-99) mg/dl Medications Administered Current Inpatient Medications Acetaminophen (Acetaminophen 325 Mg Tab) 650 mg PO Q4H PRN PRN Reason: pain/fever Stop: 11/19/20 21:56 Al Hydrox/Mg Hydrox/Simethicone (Aluminum/Magnesium/Simeth (Maalox Max) 30 Ml Udc) 15 ml PO Q6H PRN PRN Reason: Heartburn Stop: 11/20/20 11:06 Last Admin: 10/31/20 17:34 Dose: 15 ml Documented by: Albuterol (Albuterol 0.5% Neb Soln 2.5 Mg/0.5 Ml Vial) 2.5 mg NEB Q2H PRN PRN Reason: SOB/Wheeze Stop: 11/19/20 21:56 Last Admin: 10/29/20 17:28 Dose: 2.5 mg Documented by: Albuterol (Albut/Ipratrop 3mg/0.5mg Neb 3 Ml Vial) 3 ml INH Q4R CHARLA Stop: 11/29/20 18:59 Last Admin: 11/03/20 03:45 Dose: 3 ml Documented by: Azithromycin (Azithromycin 250 Mg Tab) 250 mg PO DAILY@1600 CHARLA Stop: 11/04/20 15:59 Last Admin: 11/02/20 16:41 Dose: 250 mg Documented by: Dextrose (Dextrose 50% 50 Ml Syringe) 25 - 50 ml IV UD PRN; Protocol PRN Reason: Hypoglycemia Protocol Stop: 11/19/20 21:56 Fluticasone/Vilanterol (Fluticasone/Vilanterol 100/25mcg 14 Puffs/Inhaler) 1 puffs INH DAILY CHARAL Stop: 11/20/20 08:59 Last Admin: 11/02/20 08:41 Dose: 1 puffs Documented by: Glucagon (Glucagon For Inj 1 Mg Vial) 1 mg SQ UD PRN; Protocol PRN Reason: Hypoglycemia Protocol Stop: 11/19/20 21:56 Glucose (Glucose 10 Tabs/Tube) 4 - 8 tabs PO UD PRN; Protocol PRN Reason: Hypoglycemia Protocol Stop: 11/19/20 21:56 Glucose (Glucose 40% Gel 15 Gm Tube) 15 - 30 gm PO UD PRN; Protocol PRN Reason: Hypoglycemia Protocol Stop: 11/19/20 21:56 Guaifenesin (Guaifenesin 600 Mg Tabcr) 1,200 mg PO BID [facility] Stop: 11/19/20 21:56 Last Admin: 11/02/20 20:18 Dose: 1,200 mg Documented by: Methylprednisolone 80 mg/ (Syringe) 1.28 mls @ 1.5 mls/min IV Q8 [facility] Stop: 11/27/20 21:59 Last Admin: 11/03/20 06:04 Dose: 1.5 mls/min Documented by: Insulin Aspart (Insulin Aspart 100 Units/Ml 3 Ml Pen) 0 units SC BID [facility] Stop: 12/02/20 20:59 Last Admin: 11/02/20 21:12 Dose: Not Given Documented by: Levalbuterol HCl (Levalbuterol Hcl 1.25 Mg/3 Ml Neb) 1.25 mg NEB Q2H PRN PRN Reason: Wheezing Stop: 11/23/20 15:44 Last Admin: 10/26/20 19:50 Dose: 1.25 mg Documented by: Metoclopramide HCl (Metoclopramide Hcl 10 Mg Tablet) 10 mg PO BID [facility] Stop: 11/19/20 21:56 Last Admin: 11/02/20 20:18 Dose: 10 mg Documented by: Miscellaneous (Avodart~Order Awaiting Action) 1 ea N/A QS [facility] Stop: 11/19/20 21:59 Last Admin: 11/02/20 23:14 Dose: Not Given Documented by: Miscellaneous (Carbohydrates For Hypoglycemia ) 15 - 30 gm PO UD PRN PRN Reason: Hypoglycemia Protocol Stop: 11/19/20 21:56 Morphine Sulfate (Morphine Sulfate 5 Mg/0.25 Ml Udp) 2.5 mg PO Q2H PRN PRN Reason: Pain or dyspnea Stop: 11/13/20 11:34 Last Admin: 11/03/20 04:02 Dose: 2.5 mg Documented by: Ondansetron HCl (Ondansetron Inj 2 Mg/Ml 2 Ml Vial) 4 mg IV Q6H PRN PRN Reason: Nausea Stop: 11/19/20 21:56 Pantoprazole Sodium (Pantoprazole 40 Mg Tab) 40 mg PO BID CHARLA Stop: 11/19/20 21:56 Last Admin: 11/02/20 20:18 Dose: 40 mg Documented by: Simethicone (Simethicone 80 Mg Chew) 80 mg PO Q6H PRN PRN Reason: Indigestion Stop: 11/22/20 14:49 Last Admin: 10/28/20 10:43 Dose: 80 mg Documented by: Resident Activity Tracking Resident Involvement: Resident Care Provided Care Provided: Adult Hospital Medicine
[2020-11-03] MEDS: FLUTICASONE/VILANTEROL 100/25MCG 14 PUFFS/INHALER INH SCH (07:27)
[2020-11-03] MEDS: AVODART~ORDER AWAITING ACTION SCH ×2 (07:52→16:38)
[2020-11-03] MEDS: guaiFENesin 600 MG TABCR PO SCH (07:53)
[2020-11-03] MEDS: METOCLOPRAMIDE HCL 10 MG TABLET PO SCH (07:54)
[2020-11-03] MEDS: PANTOprazole 40 MG TAB PO SCH (07:54)
[2020-11-03] MEDS: INSULIN ASPART 100 UNITS/ML 3 ML PEN SC SCH (07:54)
--- NOTE | 2020-11-03 14:07 | Palliative Care Progress Note ---
Date of Service November 03, 2020 Assessment & Plan (1) Dyspnea: Partial relief with morphine. He is agreeable to increased dose. He may benefit from morphine infusion but has been reluctant to use opioids and wanted to wait until after his visited today to increase dose. (2) Palliative care encounter: He is DNR/DNI. Plan had been home with hospice but he has had severe symptoms. Discussed with Dr. Jasso. If comfort is primary goal, we can simplify med list at this point. He has clear understanding of his poor prognosis and would likely not do well at home with hospice. Admission and Anticipated Discharge Date Admission Date: October 20, 2020 Subjective Labored breathing. Difficulty speaking due to dyspnea. Had morphine at 7am. He does get relief with morphine but it is not sustained and he is reluctant to ask for additional doses. Review of Systems Review of Systems: [place] Symptom Assessment Scale Pain 0/3 Dyspnea 3/3 Nausea 0/3 Anorexia 2/3 Anxiety 2/3 Drowsiness 0/3 Palliative Performance Score 40% Physical Exam Constitutional: + ill appearing Respiratory: + labored breathing and + uses accessory muscles Gastrointestinal (Abdomen): Inspection/Auscultation: abdomen not distended Musculoskeletal: Extremities: + muscle atrophy Psychiatric: Orientation: alert and oriented x 3 Results & Data ([facility]) Vital Signs (Past 12 Hours) Vital Signs Pulse Resp Pulse Ox 11/03/20 10:50 120 H 24 95 11/03/20 07:11 120 H 22 95 11/03/20 03:45 115 H 28 H 94 PG Care Time/CCT Total # of Minutes Spent Total Time Spent with Patient: Total time spent is greater than 50% in coordination of care (as documented) at patient's floor/unit and/or counseling patient: 40 minutes total time with more than 50% of time spent on symptom management, support and coordination of care. Coding Level of Care Code 43418 Subseq Hosp Care Lvl 3 Diagnoses Dyspnea R06.00 Palliative care encounter Z51.5
[2020-11-03] MEDS: MoRPHine SULFATE 4 MG/ML 1 ML CARP\\VIAL IV PRN ×2 (16:32→22:23)
[2020-11-03] MEDS: AZITHROMYCIN 250 MG TAB PO SCH (16:38)
[2020-11-03] MEDS ORDERED: ALBUT/IPRATROP 3MG/0.5MG NEB 3 ML VIAL NEB PRN (17:07)
[2020-11-03] MEDS ORDERED: SCOPOLAMINE 1.5 MG TDSY TD SCH (21:00)
[2020-11-03] MEDS: ATROPINE SULFATE 1% OP SOLN 5 ML BTL PO PRN (22:46)
[2020-11-04] MEDS: AVODART~ORDER AWAITING ACTION SCH ×2 (00:25→07:16)
[2020-11-04] MEDS: MoRPHine SULFATE 4 MG/ML 1 ML CARP\\VIAL IV PRN ×4 (01:08→11:02)
[2020-11-04] MEDS: MoRPHine SULFATE 5 MG/0.25 ML UDP PO PRN (02:14)
[2020-11-04] MEDS: ATROPINE SULFATE 1% OP SOLN 5 ML BTL PO PRN ×2 (04:42→10:57)
--- NOTE | 2020-11-04 07:12 | Hospitalist Progress Note ---
Date of Service November 04, 2020 Assessment & Plan (1) COPD exacerbation: 89 y/o male with a PMH of severe COPD (3L home O2), HTN, and GERD who presents with 2-3 weeks of progressive SOB with exertion and later at rest, acutely worsening over the 3-4 days prior to arrival. 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 He does not want lab draws anymore including blood sugar checks and insulin administration. All medications that are nonpalliative have been stoppe d. -Continue DuoNeb/albuterol/Zithromax/Mucinex/prednisone for respiratory symptoms -Metoclopramide, pantoprazole, simethicone for abdominal symptoms -Zofran for nausea -Morphine sulfate 5 mg p.o. every 2 hours as needed COPD exacerbation, chronic respiratory failure terminal -10/30/2020: patient decision made to transition to home hospice -10/31/2020: patient has decided to delay discharge to home hospice -11/01/2020: patient with increased work of breathing and worsening dyspnea. Patient does not feel comfortable with discharge home given his worsening condition. Extensive discussion with patient and attending regarding prognosis and hospice management. Patient to become comfort care at this time. Will discontinue vitals/monitoring and labs. Will continue supplemental oxygen via NC or bipap for comfort. Will continue respiratory regimen with albuterol inhaler q4h, duonebs q4h, fluticasone/vilanterol 1 puff daily, mucinex 1200mg po bid, levalbuterol neb q2h prn, solumedrol 80mg IV tid. Patient states that morphine sulfate significantly improves pain/discomfort but that q4h prn is too long of duration as it wears off too quickly -- morphine sulfate 2.5mg changed to q2h prn -no longer taking IV zosyn, mucomyst -continue azithromycin 250mg PO qd -encourage longer periods of BiPAP as needed -11/02: will continue supportive care. -11/03: significantly out of breath status post bath requesting medication to assist with air hunger. 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 ARCHITECT Acute kidney injury: resolved -Will discontinue AM BMP due to PRINCIPAL SOLUTIONS ARCHITECT Thrombocytopenia: stable -lovenox 30mg sq qd despite platelet count under 100 due to relative risk of PE vs bleeding -lovenox 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/02/20 for PRINCIPAL SOLUTIONS ARCHITECT GERD: stable -continue protonix 40mg PO bid -continue mylanta as above FENGI: heart healthy diet DVT ppx: 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 per nurse had some urine incontinence overnight. patient sleeping/lethargic most of day/night. per nurse, responded and let her know he could here her. per my exam, patient sleeping. Hx limited because patient in deep sleep Review of Systems Review of Systems: unable to obtain ROS, patient in deep sleep Physical Exam Physical Exam: General: Sedated appearing. HEENT: Atraumatic, normocephalic. Pulm: CTAB, quick labored breaths bilat, w/ accessory muscle use Cardiac: tachycardic rate, -mrg. no LE edema Abdominal: Nontender, nondistended, soft. Resident Activity Tracking Resident Involvement: Resident Care Provided Care Provided: Adult Hospital Medicine
[2020-11-04] MEDS: FLUTICASONE/VILANTEROL 100/25MCG 14 PUFFS/INHALER INH SCH (07:59)
[2020-11-04] MEDS ORDERED: CHECK SCOPOLAMINE PATCH PLACEMENT SCH (08:00)
[2020-11-04] MEDS ORDERED: STAT IV Infusion **Titration per Protocol STA (11:01)
[2020-11-04] MEDS ORDERED: MoRPHine SULF/NSS 250 MG/250 ML BTL IV SCH (11:15)
--- NOTE | 2020-11-04 11:20 | Palliative Care Progress Note ---
Date of Service November 04, 2020 Assessment & Plan (1) Dyspnea: Much improved with IV morphine. Will start morphine infusion for consistent relief of symptoms. He does have some audible rhonchi and is on scopalamine patch. I do not think he would benefit from additional anticholinergics and appears comfortable. (2) Palliative care encounter: I spoke with Mrs. Galvan on the phone. She was able to visit with him yesterday. We discussed his change in status and that he is likely to within the next few days. She voices understanding and has her sister with her at home for support. Admission and Anticipated Discharge Date Admission Date: October 20, 2020 Subjective Does not respond to verbal or tactile stimuli. Breathing less labored. He has had approximately 75 mg oral morphine equivalent in the last 12 hours. Review of Systems Review of Systems: Unobtainable due to reduced consciousness [place] Symptom Assessment Scale Pain 0/3 Dyspnea 1/3 Palliative Performance Score 10% Physical Exam Constitutional: comfortable ENMT: Mouth: + dry oral mucous membranes Respiratory: no respiratory distress audible rhonchi Cardiovascular: Extremities: no edema Skin: warm and dry, no mottling Neurologic: + obtunded PG Care Time/CCT Total # of Minutes Spent Total Time Spent with Patient: Total time spent is greater than 50% in coordination of care (as documented) at patient's floor/unit and/or counseling patient:40 minutes with more than 50% of time spent on symptom management and family support Coding Level of Care Code 28888 Subseq Hosp Care Lvl 3 Diagnoses Dyspnea R06.00 Palliative care encounter Z51.5
--- NOTE | 2020-11-04 15:44 | Death Pronouncement Note ---
Date of Service November 04, 2020 Pronouncement Note Admission Date Admission Date: October 20, 2020 Date and Time of Date of : 11/04/20 PCOD Preliminary cause of : Respiratory arrest Contributing Factors (1) Respiratory arrest: (2) Chronic respiratory failure: (3) Chronic obstructive pulmonary disease: (4) Palliative care encounter: Summary Additional details: respiratory arrest 2/2 COPD exacerbation on chronic respiratory failure - Called to bedside by nursing to pronounce patient's . Per nursing, he stopped spontaneous respirations at 1515. - Attending physician, Dr. 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 Patient had switched to comfort measures on 11/03/20. This preference was confirmed by the patient personally. This morning, the patient was less responsive than yesterday and was in deep sleep w/ quick breaths and moderate respiratory distress. - On exam at pronouncement, patient did not respond to verbal or tactile stimuli. There was absence of respirations visibly and on auscultation. There was no pupil response to light. There were heart sounds, but no radial pulse palpated. - Informed patient's . She declined to visit in person. - Notified attending physician Dr. Jasso Additional Data Confirmation of : no pulse and no respirations Family: contacted Attending/PCP notified?: Yes Attending physician: Tiffani Jasso MD Was code activated?: No Advance directives: Yes Resident Activity Tracking Resident Involvement: Resident Care Provided Care Provided: Adult Hospital Medicine
--- NOTE | 2020-11-04 18:54 | Discharge Summary ---
Date of Service November 04, 2020 Admission HPI Per Admitting Provider Cuco Galvan is a pleasant 89yo C male with history of severe COPD, on home O2 3L, ILD presenting with CP and worsening SOB. He reports 3 weeks of progressively worsening SOB, dry cough and wheeze with acute worsening over the last 3-4 days. Today he experienced severe SOB as well as mid-chest pain 5/10 in severity which prompted him to come to the ER. EMS states that patient was visibly dyspneic on arrival - speaking in 1-2 word sentences. Patient tachycardic at 142, hypertensive at 230/127, breathing 36 per minute, labored, saturating 91% on 3L NC. Patient denies fever, chills, nausea, vomiting. He has been having a lot of gas and has been taking Mylanta at home which has caused diarrhea for the last few days. Otherwise, no complaints. No known Covid-19 exposures. Rapid antigen testing for Covid-19 performed in ER is NEGATIVE ER Course: Albuterol/Ipratropium neb and Solumedrol 125mg IV administered by EMS Albuterol 3mL, ASA 324mg, Mg x 1gm, NSS x 500 Admission Exam Per Admitting Provider General: elderly male patient resting comfortably, NRB in place, NAD, non-toxic in appearance, AA&O x 4 Skin: warm, dry, intact, scattered bruising noted on hands and forearms HEENT: NC/AT, PERRL, EOMI, anicteric sclera, conjunctiva without injection, external ear normal to inspection and nontender, nares patent, moist mucus membranes, dentition intact, no oropharyngeal lesions, neck supple, trachea midline, no LAD, no thyromegaly, no JVD Heart: +S1/S2, regular, tachycardic, no m/r/g Lungs: equal air entry bilaterally, markedly diminished breath sounds bilaterally, +inspiratory and expiratory wheezing appreciated in anterior lung jules, no rhonchi/rales Abd: +BS, soft, NT/ND, no masses/organomegaly/ascites Ext: warm, 2+ pulses in UE/LE bilaterally, no clubbing/cyanosis or edema Neuro: nonfocal, patient AA&O x 4, speech intact, no facial droop, moving all extremities on command with equal strength 5/5 Principal Diagnosis respiratory arrest Discharge Exam General: Sedated appearing. Deep asleep, but q/ quick labored breaths, mouth breathing through nasal cannula. HEENT: Atraumatic, normocephalic. Pulm: CTAB, quick labored breaths bilat, w/ accessory muscle use Cardiac: Tachycardic rate, -mrg. no LE edema Abdominal: Nontender, nondistended, soft. Discharge Data Allergies Allergy/AdvReac Type Severity Reaction Status Date / Time No Known Allergies Allergy Verified 10/20/20 20:08 Consultations 10/20/20 19:36 ED Decision to Admit Stat 10/23/20 21:42 Consult Case Management - Discharge Planning Routine 10/26/20 19:27 Consult Palliative Care Routine Ordered Studies 10/20/20 18:41 CT angio chest PE protocol Stat 10/24/20 15:38 CT angio chest PE protocol Stat Hospital Course (1) Respiratory arrest: Cuco Galvan was an 89 y/o male with a hx of severe COPD (3L home O2), HTN, and GERD who presented to [facility] on 10/20/20 with 2-3 weeks of progressive SOB with exertion and later at rest, acutely worsening over the 3-4 days prior to arrival. He passed on 11/04/20 secondary to respiratory arrest. acute respiratory failure 2/2 COPD exacerbation on chronic respiratory failure - 3L home O2 - needed higher amounts of O2 during this admission, 4-6L. bipap was trialed after an episode of acute dyspnea - completed 3 day course of azithromycin 500 mg IV during beginning of admission - was initially placed on TV solumedrol 40 mg TID, that was then increased to 60 mg TID. eventually increased to 80 mg IV TID. - on admission, patient had elevated d dimer at 1989. - 10/24/20 chest CTA: No central pulmonary emboli. Severe emphysema and superimposed interstitial lung disease, similar to the prior studies. 10/20/21 chest CTA was also negative for PE. - 10/24/20 ABG pH 7.37. pCO2 52. pO2 285. HCO3 29. - albuterol inhalers, duonebs, fluticasone/vilanterol, mucinex, levalbuterol neb, and mucomyst were used - IV Zosyn trialed after continued worsening of respiratory symptoms, later discontinued after procalc of 0.05. Azithromycin 250 mg daily was then restarted. - Considering severity of lung ds - palliative care discussions were done. Comfort measures, palliative care discussion - 10/27/20 palliative care consulted. - comfort measures started on 11/03/20 - during week prior to 11/03/20, palliative had been consulted and had ongoing discussion w/ patient and about goals of care - morphine was started for air hunger. Initial plan was to transition to home hospice. However, patient continued to decline and on 11/03/20, patient decided to switch to comfort measures only. Chest pain - serial troponins were negative and ecg (10/24/20 sinus tach 101 w/ RBB and LAFB) did not suggest acute ischemia - was relieved by mylanta and by belching; suspect indigestion or GERD as cause - simethicone and mylanta hyperglycemia - 2/2 IV steroids - A1c 5.3 in 09/2020 - blood glucose checks discontinued after switching to comfort measures HTN - lisinopril 10mg PO qd (home dose 5mg PO qd) - discontinued after switching to comfort measures Acute kidney injury - resolved. Cr 1.75 on admission, decreased to 1.06 the next day and had stayed mostly below 1.0 thrombocytopenia - was stable - lovenox 30mg sq qd despite platelet count under 100 due to relative risk of PE vs bleeding - discontinued after switching to comfort measures GERD - was stable - protonix 40mg PO bid - mylanta - discontinued after switching to comfort measures code status: DNR/DNI (2) COPD exacerbation: (3) Chronic respiratory failure: (4) Chronic obstructive pulmonary disease: (5) Hypertension: (6) Thrombocytopenia: (7) Impaired fasting glucose: (8) GERD without esophagitis: (9) Palliative care encounter: Total Time Total Time Spent Total Time Spent (In Minutes): Please see attending documentation. Discharge Plan Discharge Items Patient Disposition: Discharge Diagnosis: secondary to respiratory arrest Addtl Attending Provider Instructions: Cuco Galvan was an 89 y/o male with hx of severe COPD (3L home O2), HTN, and GERD who presented to [facility] on 10/20/20 with 2-3 weeks of progressive SOB with exertion and later at rest, acutely worsening in the days prior to arrival. He passed on 11/04/20 secondary to respiratory arrest. COPD exacerbation on chronic respiratory failure Mr. Galvan's COPD was end-stage. Chest imaging showed severe emphysema which is a disease of the air sacs in the lung. He required 3L of supplemental oxygen at home and needed higher amounts this admission. He had worsening and required temporary bipap as well. He was given 3 days of IV azithromycin, inhaler t reatments, decongestants, nebulizers, and IV steroids (doses were increased w/ his worsening respiratory status). IV Zosyn, a stronger antibiotic that covers more organisms was temporarily used as well, but after weighing the benefits and side effects, was discontinued. During the 2 week admission, Mr. Clark's respiratory status continued to decline. Antibiotics were restarted. Later in the course, the plan was to transition to home hospice. With continued worsening of breathing, this plan was changed and the Mr. Galvan preferred comfort measures in the hospital. Morphine was provided to treat air hunger from the respiratory distress. Chest pain He presented with chest pain and had some throughout the admission. Cardiac enzymes were negative and ecg was also not suggestive of heart attack. Because the symptoms were relieved by Mylanta and by belching, indigestion and/or heartburn were thought to be more likely causes than a heart disease problem. Mr. Galvan received a proton pump inhibitor as well for his heart burn / reflux. code status: DNR/DNI Supervising Physician Co-Signing Physician Notes Resident Physician Supervision Note: I independently interviewed and examined the patient and verified the joaquin history and physical, reviewed labs and image studies, discussed the case with the resident Dr. Guzmán and agree with the findings and care plan. Resident Activity Tracking Resident Involvement: Resident Care Provided Care Provided: Adult Hospital Medicine
== END 2020-11-04 16:59 | disposition expired | DRG 190 ==
LOC: ED 16:56 → 2N 20:49 → SUATTDRO 20:49 → 2N 21:26